=== PATIENT | female | born 1950 | race Caucasian/White ===

== ENCOUNTER → 2018-07-09 07:58 | Outpatient (REF) | payer OTHER, SELFPAY ==
[2018-07-09 13:19] LABS: ALT 23 U/L (12-78); AST 18 U/L (15-37); Albumin 3.6 g/dL (3.4-5.0); Alkaline Phosphatase 89 U/L (46-116); Anion Gap 2.8 mmol/L (3-11); BUN 12 mg/dL (7-18); Bilirubin, Total 0.6 mg/dL (0.2-1.0); CO2 32.2 mmol/L (21.0-32.0); CREATININE 0.97 mg/dL (0.55-1.02); Calcium 8.6 mg/dL (8.5-10.1); Chloride 108 mmol/L (98-107); Cholesterol 192 mg/dL (50-200); Estimated GFR 56.94 (mL/min/1.73m2); Glucose 107 mg/dL (70-100); HDL Cholesterol 46 mg/dL (40-60); LDL CHOLESTEROL 140 mg/dL (<100); Potassium 4.2 mmol/L (3.5-5.1); Sodium 143 mmol/L (136-145); Total Protein 6.1 g/dL (6.4-8.2); Triglyceride 56 mg/dL (30-150)
[2018-07-09 13:27] LABS: HCT 41.2 % (36.0-46.0); Mean Corp. HGB Concentration 31.6 g/dL (32.0-36.0); Mean Corpuscular Hemoglobin 31.3 pg (27.0-33.0); Mean Corpuscular Volume 99.3 fL (80-95); Mean Platelet Volume 10.4 fL (8.0-11.0); Platelet Count 241 x1000/uL (130-400); RBC 4.15 m/cumm (4.00-5.20); White Blood Cell Count 7.02 k/cumm (4.4-10.8)
[2018-07-09 13:49] LABS: Hemoglobin A1C 5.6 % (4.5-6.2)
== END ==
LOC: NCHCN 07:58
PROVIDERS: PCP Family Medicine; Visit Provider Family Medicine
DX: R73.03 Prediabetes (principal); I10 Essential (primary) hypertension; K21.9 Gastro-esophageal reflux disease without esophagitis; R60.0 Localized edema
CPT/HCPCS: 80053; 80061; 83721; 85027; 83036

== ENCOUNTER 2018-07-18 17:59 | Outpatient (CLI) | payer OTHER, SELFPAY ==
[2018-07-18 17:09] LABS: ALT 21 U/L (12-78); AST 17 U/L (15-37); Albumin 3.4 g/dL (3.4-5.0); Alkaline Phosphatase 91 U/L (46-116); BUN 11 mg/dL (7-18); Bilirubin, Total 0.7 mg/dL (0.2-1.0); CREATININE 0.86 mg/dL (0.55-1.02); Calcium 8.6 mg/dL (8.5-10.1); Chloride 106 mmol/L (98-107); Glucose 99 mg/dL (70-100); Potassium 4.5 mmol/L (3.5-5.1); Sodium 142 mmol/L (136-145); Total Protein 6.2 g/dL (6.4-8.2)
[2018-07-18 17:10] LABS: HCT 40.5 % (36.0-46.0); HGB 12.8 g/dL (12.0-15.5); Mean Corpuscular Volume 98.5 fL (80-95); RBC 4.11 m/cumm (4.00-5.20); White Blood Cell Count 6.41 k/cumm (4.4-10.8)
[2018-07-18 17:11] LABS: Abs Immature Grans 0.01 k/cumm (0.0-0.09); Absolute Basophil Count 0.04 k/cumm (0.0-0.2); Absolute Eosinophil Count 0.34 k/cumm (0.0-0.7); Absolute Lymphocyte Count 1.72 k/cumm (1.2-3.4); Basophils % 0.6; Eosinophils % 5.3; Immature Grans % 0.2; Lymphocytes % 26.8; Mean Corp. HGB Concentration 31.6 g/dL (32.0-36.0); Mean Corpuscular Hemoglobin 31.1 pg (27.0-33.0); Mean Platelet Volume 10.4 fL (8.0-11.0); Monocytes % 7.8; Neutrophils % 59.3; Platelet Count 268 x1000/uL (130-400); RBC Distribution Width 14.1 % (11.7-14.6)
== END 2018-07-18 18:00 ==
PROVIDERS: Internal Medicine; PCP Family Medicine; Visit Provider Internal Medicine
DX: R93.8 Abnormal findings on diagnostic imaging of other specified body structures (principal); M12.30 Palindromic rheumatism, unspecified site; Z79.899 Other long term (current) drug therapy
CPT/HCPCS: 80053; 82565; 85025

== ENCOUNTER 2018-09-02 17:08 | Outpatient (REF) | payer OTHER, SELFPAY ==
--- NOTE | 2018-09-02 13:30 | PAPFT_PTH ---
PATIENT: Ml Lam LOC: [facility] U#:[id number] AGE/SX: 67/F ROOM: RE09/02/[address]: Mounika Mccray : 1950 BED: DIS: 09/02/2018 SPEC #: [id number] RECD: 09/03/18 13:04 STATUS: MELLY REPhani #: [id number] DEUCE: 09/02/18 13:[address]: Mounika Mccray DEPT: [facility] Cytology RECD BY: Nichole Benavides Tissues: 1 - CX/ENDOCX FOR PAP SMEARS Procedures: PAP THIN PREP/UVM Screening HPV DNA PROBE Comments: [id number]
== END 2018-09-02 17:28 ==
LOC: NCHCN 17:08
PROVIDERS: PCP Family Medicine; Visit Provider Family Medicine
DX: Z00.00 Encounter for general adult medical examination without abnormal findings (principal); Z12.4 Encounter for screening for malignant neoplasm of cervix; Z11.51 Encounter for screening for human papillomavirus (HPV)
CPT/HCPCS: 88142; 87624

== ENCOUNTER 2018-09-08 00:48 | Outpatient (CLI) | payer OTHER, SELFPAY ==
--- NOTE | 2018-09-08 12:00 | DI.CTLCSR_ITS ---
SYMPTOMS/DIAGNOSIS: TOBACCO USE, QUIT, Z87.[address] FOR LUNG CANCER SCREENING: A low dose noncontrast exam was performed. Comparison is made with contrast enhanced chest CT dated March,. The previous exam was limited due to respiratory motion. There is an 8 mm in diameter nodule in the right upper lobe. There is a question of a left apical mass versus scarring measuring 9 mm in diameter. Emphysematous changes are noted near the lung apices. There are few small mediastinal lymph nodes, unchanged. There are left atrial and left ventricular enlargement and mild coronary artery and aortic calcifications. No bony lesions are appreciated. IMPRESSION: An 8 mm right upper lobe nodule. Question of a 9 mm left upper lobe nodule versus pleural scarring. PET/CT or biopsy could be considered for further evaluation. Lung-RAD Category: 4B- Suspicious Lung- RAD Management of Findings: Chest CT, PET/CT, and/or tissue sampling
== END 2018-09-08 01:08 ==
PROVIDERS: PCP Family Medicine; Visit Provider Family Medicine
DX: Z12.2 Encounter for screening for malignant neoplasm of respiratory organs (principal); Z87.891 Personal history of nicotine dependence; R91.1 Solitary pulmonary nodule; R91.8 Other nonspecific abnormal finding of lung field; R59.0 Localized enlarged lymph nodes
CPT/HCPCS: G0297

== ENCOUNTER 2018-09-21 00:42 | Outpatient (CLI) | payer OTHER, SELFPAY ==
--- NOTE | 2018-09-21 11:23 | DI.MAMMO_ITS ---
SYMPTOM/DIAGNOSIS: SCREENING, Z12.31 MAMMOGRAMS: Mammograms were interpreted according to the usual protocol including computer analysis with CAD system, tomosynthesis and C view imaging. Comparison with prior examinations. No masses or microcalcifications are seen. There is nothing to suggest malignancy. Breast density A. IMPRESSION: Category 1-A. Negative mammogram. Routine screening is recommended. SA ASSESSMENT OF FINDINGS: Negative. Category 1. Patient will receive a letter notifying them of these results. BI-RAD category A. The breasts are almost entirely fatty.
== END 2018-09-21 01:02 ==
PROVIDERS: PCP Family Medicine; Visit Provider Family Medicine
DX: Z12.31 Encounter for screening mammogram for malignant neoplasm of breast (principal)
CPT/HCPCS: 77063; 77067

== ENCOUNTER 2018-12-29 09:55 | Outpatient (CLI) | payer OTHER, SELFPAY ==
[2018-12-29 11:16] LABS: Abs Immature Grans 0.02 k/cumm (0.0-0.09); Absolute Basophil Count 0.05 k/cumm (0.0-0.2); Absolute Eosinophil Count 0.29 k/cumm (0.0-0.7); Absolute Lymphocyte Count 1.79 k/cumm (1.2-3.4); Absolute Monocyte Count 0.78 k/cumm (0.11-0.7); Absolute Neutrophil Count 4.63 k/cumm (1.2-6.7); Basophils % 0.7; Eosinophils % 3.8; HCT 40.6 % (36.0-46.0); HGB 13.1 g/dL (12.0-15.5); Immature Grans % 0.3; Lymphocytes % 23.7; Mean Corp. HGB Concentration 32.3 g/dL (32.0-36.0); Mean Corpuscular Hemoglobin 31.5 pg (27.0-33.0); Mean Corpuscular Volume 97.6 fL (80-95); Monocytes % 10.3; Neutrophils % 61.2; Platelet Count 243 x1000/uL (130-400); RBC 4.16 m/cumm (4.00-5.20); RBC Distribution Width 13.3 % (11.7-14.6); White Blood Cell Count 7.56 k/cumm (4.4-10.8)
[2018-12-29 11:56] LABS: ALT 20 U/L (12-78); AST 15 U/L (15-37); Albumin 3.4 g/dL (3.4-5.0); Alkaline Phosphatase 104 U/L (46-116); BUN 13 mg/dL (7-18); Bilirubin, Total 0.4 mg/dL (0.2-1.0); CREATININE 0.94 mg/dL (0.55-1.02); Calcium 8.8 mg/dL (8.5-10.1); Chloride 105 mmol/L (98-107); Estimated GFR 58.87 (mL/min/1.73m2); Glucose 117 mg/dL (70-100); Potassium 4.1 mmol/L (3.5-5.1); Sodium 144 mmol/L (136-145); Total Protein 6.4 g/dL (6.4-8.2)
== END 2018-12-29 10:15 ==
PROVIDERS: PCP Family Medicine; Visit Provider Internal Medicine
DX: M12.30 Palindromic rheumatism, unspecified site (principal); Z79.899 Other long term (current) drug therapy
CPT/HCPCS: 36415; 80053; 85025

== ENCOUNTER 2019-04-15 12:25 | Outpatient (CLI) | payer OTHER, SELFPAY ==
[2019-04-15 13:00] LABS: Abs Immature Grans 0.02 k/cumm (0.0-0.09); Absolute Basophil Count 0.04 k/cumm (0.0-0.2); Absolute Eosinophil Count 0.64 k/cumm (0.0-0.7); Absolute Monocyte Count 0.92 k/cumm (0.11-0.7); Absolute Neutrophil Count 5.07 k/cumm (1.2-6.7); Basophils % 0.5; Eosinophils % 7.5; HCT 40.2 % (36.0-46.0); HGB 12.9 g/dL (12.0-15.5); Immature Grans % 0.2; Lymphocytes % 22.1; Mean Corp. HGB Concentration 32.1 g/dL (32.0-36.0); Mean Corpuscular Hemoglobin 30.4 pg (27.0-33.0); Mean Corpuscular Volume 94.8 fL (80-95); Mean Platelet Volume 9.1 fL (8.0-11.0); Monocytes % 10.7; Platelet Count 336 x1000/uL (130-400); RBC 4.24 m/cumm (4.00-5.20); RBC Distribution Width 13.5 % (11.7-14.6); White Blood Cell Count 8.59 k/cumm (4.4-10.8)
[2019-04-15 13:57] LABS: ALT 18 U/L (12-78); AST 15 U/L (15-37); Albumin 3.2 g/dL (3.4-5.0); Alkaline Phosphatase 103 U/L (46-116); Anion Gap 8.2 mmol/L (3-11); BUN 12 mg/dL (7-18); Bilirubin, Total 0.5 mg/dL (0.2-1.0); CO2 27.8 mmol/L (21.0-32.0); Calcium 8.9 mg/dL (8.5-10.1); Chloride 105 mmol/L (98-107); Glucose 97 mg/dL (70-100); Potassium 4.2 mmol/L (3.5-5.1); Sodium 141 mmol/L (136-145); Total Protein 6.2 g/dL (6.4-8.2)
== END 2019-04-15 12:45 ==
PROVIDERS: PCP Family Medicine; Visit Provider Internal Medicine
DX: M12.30 Palindromic rheumatism, unspecified site (principal); Z79.899 Other long term (current) drug therapy
CPT/HCPCS: 36415; 80053; 85025

== ENCOUNTER 2019-05-17 10:06 | Emergency (ER) | payer OTHER, SELFPAY ==
[2019-05-17 10:19] VITALS: BP 200/68; PULSE 42; RESP 18; TEMP 36.6; O2SAT 95
--- NOTE | 2019-05-17 10:45 | DI.RAD_ITS ---
SYMPTOMS/DIAGNOSIS: LOW BACK PAIN, CONSTIPATION LUMBAR SPINE: There is a mild to moderate L 1 compression fracture of the anterosuperior endplate. The fracture appears new when compared with 2017 chest x-ray. There is no visible retropulsion. There are prominent facet degenerative changes at L 4 - 5 and L 5 - S 1. There is mild spondylolisthesis at L 4 - 5. There is severe narrowing of the L 5 - S 1 disc space. There is mild narrowing of the L 4 - 5 disc. IMPRESSION: Compression fracture of the superior endplate of L 1 which appears new when compared with 2017. Degenerative changes of the lower lumbar spine. ABDOMEN FLAT AND UPRIGHT: No free air is seen. There is a large quantity of stool seen in the ascending and transverse colon. The colon appears redundant. The descending colon and rectosigmoid appear free of stool. There is no small bowel dilatation. IMPRESSION: Large quantity of stool in the right side of the colon. PA CHEST: The heart size is normal. The lungs are clear. No infiltrate or effusion is seen. IMPRESSION: No acute abnormality.
--- NOTE | 2019-05-17 11:02 | ED.GENADUL_ITS ---
Discharge Plan Disposition Patient Disposition: HOME Condition: Stable Discharge Details Chief Complaint: Nk/Back Pain Clinical Impression: Compression fracture of L1 lumbar vertebra, Constipation Primary Care Provider: Mounika Mccray ED Provider: Manas Condon Home Meds and New Rx's Prescriptions: New acetaminophen 325 mg tablet 325 mg PO Q4H PRN PRN (Reason: pain) Qty: 30 RF: 0 oxycodone 5 mg tablet 2.5 mg PO Q6H PRN PRN (Reason: severe pain) Qty: 5 RF: 0 bisacodyl [Dulcolax (bisacodyl)] 5 mg tablet,delayed release (DR/EC) 5 mg PO DAILY PRN (Reason: constipation) Qty: 4 RF: 0 Continued bupropion HCl [Wellbutrin SR] 150 MG tablet extended release 12 hr 300 mg PO DAILY RF: 0 omeprazole 10 MG capsule,delayed release(DR/EC) 20 mg PO DAILY RF: 0 folic acid 1 MG tablet 1 mg PO DAILY RF: 0 albuterol sulfate [ProAir HFA] 8.5 GM HFA aerosol inhaler 1 - 2 puff Inhalation Q4H PRN RF: 0 Methotrexate (Anti-Rheumatic) 2.5 MG tablets,dose pack 2.5 mg PO . Q WEEK RF: 0 vitamin B12 1 tab DAILY RF: 0 fluticasone propion-salmeterol [Advair Diskus] 250-50 mcg/dose Blister With Device 1 inh Inhalation BID RF: 0 cetirizine 10 mg Tablet 10 mg PO DAILY RF: 0 aspirin [Aspir-81] 81 mg Tablet,Delayed Release (Dr/Ec) 81 mg PO DAILY RF: 0 furosemide 20 mg Tablet 20 mg PO DAILY RF: 0 oxybutynin chloride 5 mg Tablet 5 mg PO BID PRNRF: 0 Spiriva with HandiHaler 18 mcg Capsule, W/Inhalation Device 1 cap INHALATION DAILY RF: 0 cholecalciferol (vitamin D3) [Vitamin D3] 2,000 unit Capsule 2,000 unit PO DAILY RF: 0 Discharge Instructions Instructions: Constipation (ED), Vertebral Compression Fracture (ED) Additional Instructions: Continue to stay well-hydrated and you may slowly perform activities as tolerated but refrain from any further heavy lifting, significant bending or twisting type motions. Please take acetaminophen for pain control and use the narcotic pain medication as needed for severe pain or discomfort. Return imme diately to the emergency department for any weakness to the lower extremities, numbness or tingling to your legs, or further concerns. Otherwise follow-up with your primary care provider for reassessment. You may also take the prescribed laxative to assist with your constipation but for any severe abdominal pain, nausea vomiting you should also return for reassessment Referrals: Mounika Mccray MD [Primary Care Provider] - 1 week Discharge Data Discharge Date/Time-TO BE ENTERED AT DEPARTURE: 05/17/19 12:48 Medical Decision Making Patient presenting to the emergency department for chief complaint of back pain. Patient reports that 5 days ago she was attempting to lift a air conditioner and felt a pop in her back. Since then she has had back pain which seems to be worse with lying flat or in the mornings. She states when she gets up moving around pain is fairly minimal. She states that she has been taking aspirin as needed for discomfort. Patient does state that she has had some constipation for 5 days as well but does state history of constipation. Patient has diffuse lumbar tenderness without step-off deformity, fever chills, urinary complaints, or abdominal pain. Patient does have hypoactive bowel sounds otherwise soft nontender abdomen. Patient has no saddle anesthesia, no weakness to the lower extremities, normal gait. Plan to do radiological imaging of the lumbar spine along with the abdomen. Patient denies any need of pain medication at this time. Review of radiological imaging shows a mild compression fracture of L1 otherwise no other acute findings noted by radiologist interpretation. Patient reassessed and continues to remain stable. Patient consented to rectal exam which shows normal sphincter tone. Post residual void shows less than 20 mL's after patient states urinating twice in the ED without issue. I feel that this is appropriate and patient has no worrisome findings to suggest cauda equina while this is considered I do not feel that patient needs MRI imaging at this time. Patient was recommended to use acetaminophen, oxycodone, and ducolax. Patient was p laced upon referral to follow-up with primary care physician by the end of the week for any additional pain medication as needed or for reassessment HPI General Mode of arrival: ambulatory . Date/Time Provider Initiated Documentation: 05/17/19 10:23 . Limitations to Documentation: no limitations . Information obtained by: patient and RN notes reviewed . History of Present Illness 68 year old F presents to the emergency department with the chief complaint of back pain , described as mild, with intensity rated at 3. Quality is described as aching, and is localized to the back and buttocks (left). Patient started experiencing this day(s) (5) and it has been colicky. Movement worsens symptoms . Patient did receive the following treatments prior to arrival, NSAID Related Data Home Medications Medication Instructions Recorded Confirmed Methotrexate (Anti-Rheumatic) 2.5 mg PO . Q WEEK 09/20/13 05/17/19 albuterol sulfate [ProAir HFA] 1 - 2 puff INHALATION Q4H PRN 09/20/13 05/17/19 inhaler bupropion HCl [Wellbutrin SR] 300 mg PO DAILY 09/20/13 05/17/19 folic acid 1 mg PO DAILY tab-cap 09/20/13 05/17/19 omeprazole 20 mg PO DAILY tab-cap 09/20/13 05/17/19 Vitamin B12 1 tab DAILY 03/20/15 05/17/19 Spiriva with HandiHaler 1 cap INHALATION DAILY 05/17/19 05/17/19 acetaminophen 325 mg PO Q4H PRN PRN #30 tab 05/17/19 aspirin [Aspir-81] 81 mg PO DAILY 05/17/19 05/17/19 bisacodyl [Dulcolax (bisacodyl)] 5 mg PO DAILY PRN #4 tab 05/17/19 cetirizine 10 mg PO DAILY 05/17/19 05/17/19 cholecalciferol (vitamin D3) 2,000 unit PO DAILY 05/17/19 05/17/19 [Vitamin D3] fluticasone propion-salmeterol 1 inh INHALATION BID 05/17/19 05/17/19 [Advair Diskus] furosemide 20 mg PO DAILY 05/17/19 05/17/19 oxybutynin chloride 5 mg PO BID PRN 05/17/19 05/17/19 oxycodone 2.5 mg PO Q6H PRN PRN #5 tab 05/17/19 Previous Rx's Medication Instructions Recorded acetaminophen 325 mg PO Q4H PRN PRN #30 tab 05/17/19 bisacodyl [Dulcolax (bisacodyl)] 5 mg PO DAILY PRN #4 tab 05/17/19 oxycodone 2.5 mg PO Q6H PRN PRN #5 tab 05/17/19 Allergies Allergy/AdvReac Type Severity Reaction Status Date / Time No Known Allergies Allergy Unverified 04/28/15 08:43 General Stated Complaint: Orthopedic LAURA: 3 Review of Systems Constitutional Denies chills and Denies fever(s) Cardiovascular Denies chest pain Gastrointestinal Denies abdominal pain, Denies change in bowel habits, Reports constipation, Denies diarrhea, Denies nausea and Denies vomiting Genitourinary Denies urinary incontinence Musculoskeletal Reports as per HPI, Reports back pain, Denies numbness and Denies tingling Neurologic Denies numbness, Denies sensory deficit and Denies tingling PFSH Social History Smoking/Tobacco Use Status: Former Tobacco Use Alcohol Intake: former Drug use: Never Do you feel safe at home: Yes Do you feel safe in your relationship?: Yes Exam Const General: cooperative and no acute distress Orientation: alert, awake and oriented x3 Neck Neck: normal visual inspection, full ROM and no meningeal signs Resp Effort & Inspection: normal respiratory effort Auscultation: clear to auscultation bilaterally Cardio Rate: regular rate Rhythm: regular rhythm Heart Sounds: S1 normal and S2 normal GI Palpation: soft, no hepatosplenomegaly, no aortic enlargement, no masses, no pulsatile masses, not rigid and nontender Auscultation: hypoactive bowel sounds Rectal Exam - female: visual inspection normal, normal sphincter tone, No fecal impaction, No hemorrhoids and No tenderness Back/Spine/Pelvis Thoracic/Lumbar Spine: pain with thoraco-lumbar ROM, thoraco-lumbar ROM limited, No thoracic spinal tenderness, lumbar spinal tenderness (Diffuse nonfocal) and straight leg raise positive (left) Pelvis: no pain with anterior-posterior compression, no pain with lateral compression, buttock tenderness on the left and sciatic notch tenderness on the right Sacrum: no ecchymosis and no erythema Neuro General: alert, awake and oriented x3 DTR's: Rt Patellar: 2+, Lt Patellar: 2+, Rt Ankle: 2+ and Lt Ankle: 2+ Extrem Right lower extremity: hip/thigh Details: normal to inspection, knee Details: normal to inspection and lower leg Details: normal to inspection Course Vital Signs Temperature 36.6 C 05/17/19 10:19 Pulse 42 L 05/17/19 10:19 Respiratory Rate 18 05/17/19 10:19 Blood Pressure 200/68 H 05/17/19 10:19 Pulse Oximetry 95 05/17/19 10:19 Temperature 36.6 C 05/17/19 10:19 Temperature Source Tympanic 05/17/19 10:19 Pulse 42 L 05/17/19 10:19 Respiratory Rate 18 05/17/19 10:19 Respiratory Effort Non-Labored 05/17/19 10:22 Blood Pressure 200/68 H 05/17/19 10:19 Blood Pressure Position Sitting 05/17/19 10:19 Pulse Oximetry 95 05/17/19 10:19 Pain Level 5 05/17/19 10:33
--- NOTE | 2019-05-24 19:08 | NUR.NOTE ---
Nursing Note: Referral was faxed to PCP today for follow up. Rowena Cabrera.
== END 2019-05-17 12:48 | disposition home or self-care (01) ==
PROVIDERS: Emergency Provider Nurse Practitioner Family; PCP Family Medicine
DX: S32.010A Wedge compression fracture of first lumbar vertebra, initial encounter for closed fracture (principal); X50.0XXA Overexertion from strenuous movement or load, initial encounter; K59.00 Constipation, unspecified
CPT/HCPCS: 99283; 72110; 74022

== ENCOUNTER 2019-06-09 00:36 | Outpatient (CLI) | payer OTHER, SELFPAY ==
--- NOTE | 2019-06-09 13:31 | DI.CT_ITS ---
SYMPTOM/DIAGNOSIS: MULTIPLE PULMONARY NODULES R91.8 CT CHEST: Noncontrast CT scan of the chest was performed. Comparison examination is 09/08/18. The thoracic aorta is normal in caliber. Heart size is stable. No significant pericardial effusion is seen. Coronary artery calcifications are present. There are stable mildly enlarged lymph nodes in the mediastinum. The largest lymph node has a short axis diameter of 8 mm. No pleural effusion or pneumothorax is identified. Upper abdominal images show fatty atrophy of the pancreas and a left renal cyst. There does appear to be a small hiatal hernia. The 0.9 cm noncalcified nodule in the left lung apex is stable. There is a stable 0.3 cm pulmonary nodule in the right upper lobe. There is a stable 0.8 cm nodule in the right upper lobe posteriorly. No new pulmonary nodules are present. Central lobular and paraseptal emphysematous changes are seen in the lungs. The tracheobronchial tree is unremarkable. There is a compression fracture deformity of L-1 with retropulsion in to the central spinal canal. The spinal canal is narrowed down to 1.2 cm. There is loss of approximately 30% of the height of the vertebral body. This can be seen on the x-ray of the lumbar spine 05/17/19 Degenerative changes are seen in the spine. IMPRESSION: 1. Stable pulmonary nodules. No new pulmonary nodules. This remains a category 4-B, CT scan of the chest. 2. L-1 compression fracture deformity , stable since x-ray from 05/17/19 3. Retropulsion of the posterior vertebral body with resultant narrowing of the central spinal canal as noted. 4. Pulmonary emphysema.
== END 2019-06-09 00:56 ==
PROVIDERS: PCP Family Medicine; Visit Provider Family Medicine
DX: R91.8 Other nonspecific abnormal finding of lung field (principal); J43.9 Emphysema, unspecified; M48.56XD Collapsed vertebra, not elsewhere classified, lumbar region, subsequent encounter for fracture with routine healing; R59.0 Localized enlarged lymph nodes
CPT/HCPCS: 71250

== ENCOUNTER 2019-07-01 11:07 | Outpatient (CLI) | payer OTHER, SELFPAY ==
[2019-07-01 12:41] LABS: ALT 18 U/L (12-78); AST 15 U/L (15-37); Albumin 3.6 g/dL (3.4-5.0); Alkaline Phosphatase 111 U/L (46-116); Anion Gap 9.5 mmol/L (3-11); BUN 9 mg/dL (7-18); Bilirubin, Total 0.4 mg/dL (0.2-1.0); CO2 30.5 mmol/L (21.0-32.0); CREATININE 0.88 mg/dL (0.55-1.02); Calcium 8.8 mg/dL (8.5-10.1); Chloride 105 mmol/L (98-107); Glucose 113 mg/dL (70-100); Potassium 4.2 mmol/L (3.5-5.1); Sodium 145 mmol/L (136-145); Total Protein 6.7 g/dL (6.4-8.2)
[2019-07-01 14:51] LABS: Abs Immature Grans 0.01 k/cumm (0.0-0.09); Absolute Basophil Count 0.03 k/cumm (0.0-0.2); Absolute Monocyte Count 0.62 k/cumm (0.11-0.7); Absolute Neutrophil Count 5.03 k/cumm (1.2-6.7); Basophils % 0.4; Eosinophils % 5.1; HCT 41.2 % (36.0-46.0); HGB 12.9 g/dL (12.0-15.5); Immature Grans % 0.1; Lymphocytes % 22.8; Mean Corp. HGB Concentration 31.3 g/dL (32.0-36.0); Mean Corpuscular Hemoglobin 30.5 pg (27.0-33.0); Mean Corpuscular Volume 97.4 fL (80-95); Mean Platelet Volume 10.2 fL (8.0-11.0); Monocytes % 7.9; Neutrophils % 63.7; Platelet Count 369 x1000/uL (130-400); RBC 4.23 m/cumm (4.00-5.20); RBC Distribution Width 14.9 % (11.7-14.6); White Blood Cell Count 7.89 k/cumm (4.4-10.8)
== END 2019-07-01 11:27 ==
PROVIDERS: PCP Family Medicine; Visit Provider Internal Medicine
DX: M12.30 Palindromic rheumatism, unspecified site (principal); Z79.899 Other long term (current) drug therapy
CPT/HCPCS: 36415; 80053; 85025

== ENCOUNTER 2019-09-16 01:39 | Outpatient (CLI) | payer OTHER, SELFPAY ==
--- NOTE | 2019-09-16 10:30 | DI.DEXA_ITS ---
EXAM: XR DEXA BONE DENSITY W/WO HERMAN CLINICAL HISTORY: POSTMENOPAUSAL, Z78.0, OSTEOPENIA ON FOSAMAX [id number], M85.80 COMPARISON: DEXA BONE DENSITY WITH HERMAN from 03/07/2011 XR lumbar spine complete from 05/17/2019 DEXA BONE DENSITY WITH HERMAN from 03/07/2011 XR lumbar spine complete from 05/17/2019 DXA scans from 2005 and 2010. FINDINGS: The HERMAN image shows a compression fracture of L1 compared which appears unchanged when compared with plain films. No additional compression fractures are seen however the thoracic vertebral bodies ar e not well visualized. L1 was excluded from the spine density measurements due to the compression fr acture. The bone mineral density measurements of the lumbar spine correspond to a total T-score of - 1.7, in the osteopenic range. This represents a decrease of 9.5 percent compared with 2010 and a 4.8 percent increase when compared with 2005. The left hip bone mineral density measurements correspond to a total T-score of -1.9 and a femoral ne ck T-score of -2.1, in the osteopenic range. This represents a 10.1 percent decrease when compared w ith 2010 and no significant change from 2005. The left forearm bone mineral density measurements correspond to a T-score of the distal 3rd of -3.1, in the osteoporotic range. There has been a decrease of 11.9 percent when compared with 2010. The forearm was not analyzed in 2005. IMPRESSION: Osteoporosis of the left forearm, decreased when compared with 2010. Osteopenia of the left hip and lumbar spine, also with decreases when compared with 2010.
== END 2019-09-16 01:59 ==
PROVIDERS: PCP Family Medicine; Visit Provider Family Medicine
DX: M85.88 Other specified disorders of bone density and structure, other site (principal); M81.0 Age-related osteoporosis without current pathological fracture
CPT/HCPCS: 77080

== ENCOUNTER 2019-09-29 13:07 | Outpatient (CLI) | payer OTHER, SELFPAY | END 2019-09-29 13:27 | PROVIDERS: PCP Family Medicine; Visit Provider Family Medicine | DX: I49.9 Cardiac arrhythmia, unspecified (principal); I47.1 Supraventricular tachycardia; I49.1 Atrial premature depolarization | CPT/HCPCS: 93225 ==

== ENCOUNTER 2019-09-30 16:03 | Outpatient (CLI) | payer OTHER, SELFPAY ==
--- NOTE | 2019-10-01 08:34 | W.HOLTRPT ---
Date of service: 10/01/19 Time of Service: 08:34 Holter Monitor Report Holter Monitor Note: Monitor ordered for the indication of irregular heartbeat. ?The patient was in normal sinus rhythm for the majority of the recording time. While in normal sinus rhythm the average heart rate was 74 bpm with a minimum of 60 and a maximum of 102 bpm. ?The patient had 6 episodes of supraventricular tachycardia with the longest lasting 7 beats at a maximum rate of 155. ?The patient had rare (less than 1%) premature atrial contractions ?The patient had no episodes of ventricular tachycardia. The patient had frequent (8.7%) single ventricular ectopic beats. ?There were no episodes of atrial fibrillation, no pauses greater than 3 seconds and no high degree heart block.
== END 2019-09-30 16:23 ==
PROVIDERS: PCP Family Medicine; Visit Provider Family Medicine
DX: I49.9 Cardiac arrhythmia, unspecified (principal); I47.1 Supraventricular tachycardia; I49.1 Atrial premature depolarization
CPT/HCPCS: 93226

== ENCOUNTER 2019-10-01 08:34 | Outpatient (CLI) | payer OTHER, SELFPAY | END 2019-10-01 08:54 | PROVIDERS: PCP Family Medicine; Referring Provider Family Medicine; Visit Provider Internal Medicine Cardiovascular Disease | DX: I49.9 Cardiac arrhythmia, unspecified (principal); I47.1 Supraventricular tachycardia; I49.1 Atrial premature depolarization | CPT/HCPCS: 93227 ==

== ENCOUNTER 2019-10-26 01:52 | Outpatient (CLI) | payer OTHER, SELFPAY ==
[2019-10-26 13:07] LABS: Abs Immature Grans 0.01 k/cumm (0.0-0.09); Absolute Basophil Count 0.05 k/cumm (0.0-0.2); Absolute Eosinophil Count 0.35 k/cumm (0.0-0.7); Absolute Lymphocyte Count 2.12 k/cumm (1.2-3.4); Absolute Monocyte Count 0.65 k/cumm (0.11-0.7); Basophils % 0.7; Eosinophils % 4.6; HCT 42.3 % (36.0-46.0); HGB 13.6 g/dL (12.0-15.5); Immature Grans % 0.1; Lymphocytes % 27.6; Mean Corp. HGB Concentration 32.2 g/dL (32.0-36.0); Mean Corpuscular Hemoglobin 32.2 pg (27.0-33.0); Mean Corpuscular Volume 100.2 fL (80-95); Mean Platelet Volume 9.8 fL (8.0-11.0); Monocytes % 8.5; Neutrophils % 58.5; Platelet Count 315 x1000/uL (130-400); RBC 4.22 m/cumm (4.00-5.20); RBC Distribution Width 13.2 % (11.7-14.6); White Blood Cell Count 7.68 k/cumm (4.4-10.8)
== END 2019-10-26 02:12 ==
PROVIDERS: PCP Family Medicine; Visit Provider Internal Medicine
DX: M12.30 Palindromic rheumatism, unspecified site (principal); Z79.899 Other long term (current) drug therapy; R32 Unspecified urinary incontinence; I10 Essential (primary) hypertension; J44.9 Chronic obstructive pulmonary disease, unspecified; Z87.891 Personal history of nicotine dependence
CPT/HCPCS: 36415; 99204; 99215; 85025

== ENCOUNTER 2020-02-23 01:08 | Outpatient (CLI) | payer OTHER, SELFPAY ==
[2020-02-23 15:43] LABS: Abs Immature Grans 0.01 k/cumm (0.0-0.09); Absolute Basophil Count 0.06 k/cumm (0.0-0.2); Absolute Eosinophil Count 0.52 k/cumm (0.0-0.7); Absolute Lymphocyte Count 2.76 k/cumm (1.2-3.4); Absolute Monocyte Count 0.61 k/cumm (0.11-0.7); Absolute Neutrophil Count 5.27 k/cumm (1.2-6.7); Basophils % 0.7; Eosinophils % 5.6; HCT 41.3 % (36.0-46.0); HGB 13.5 g/dL (12.0-15.5); Immature Grans % 0.1 %; Lymphocytes % 29.9; Mean Corp. HGB Concentration 32.7 g/dL (32.0-36.0); Mean Corpuscular Hemoglobin 32.4 pg (27.0-33.0); Mean Platelet Volume 10.2 fL (8.0-11.0); Monocytes % 6.6; Neutrophils % 57.1; Platelet Count 272 x1000/uL (130-400); RBC 4.17 m/cumm (4.00-5.20); RBC Distribution Width 13.8 % (11.7-14.6); White Blood Cell Count 9.23 k/cumm (4.4-10.8)
[2020-02-23 17:05] LABS: ALT 25 U/L (14-59); AST 16 U/L (15-37); Albumin 3.9 g/dL (3.4-5.0); Alkaline Phosphatase 74 U/L (46-116); Anion Gap 6.3 mmol/L (3-11); BUN 11 mg/dL (7-18); Bilirubin, Total 0.6 mg/dL (0.2-1.0); CO2 32.7 mmol/L (21.0-32.0); Calcium 8.4 mg/dL (8.5-10.1); Chloride 106 mmol/L (98-107); Glucose 94 mg/dL (74-106); Potassium 3.7 mmol/L (3.5-5.1); Sodium 145 mmol/L (136-145); Total Protein 6.6 g/dL (6.4-8.2)
[2020-02-23 17:29] LABS: Hemoglobin A1C 5.5 % (3.8-5.6)
== END 2020-02-23 01:28 ==
PROVIDERS: PCP Family Medicine; Visit Provider Internal Medicine
DX: M12.30 Palindromic rheumatism, unspecified site (principal); Z79.899 Other long term (current) drug therapy; R73.03 Prediabetes
CPT/HCPCS: 36415; 80053; 83036; 85025

== ENCOUNTER 2020-08-10 04:40 | Outpatient (CLI) | payer OTHER, SELFPAY ==
[2020-08-10 10:33] LABS: Abs Immature Grans 0.03 10^3/uL (0.0-0.06); Absolute Basophil Count 0.04 10^3/uL (0.0-0.2); Absolute Eosinophil Count 0.49 10^3/uL (0.0-0.7); Absolute Lymphocyte Count 2.63 10^3/uL (1.2-3.4); Absolute Monocyte Count 0.75 10^3/uL (0.1-0.8); Absolute Neutrophil Count 4.52 10^3/uL (1.2-6.7); Basophils % 0.5; Eosinophils % 5.8; HCT 39.8 % (36.0-46.0); HGB 12.5 g/dL (11.2-15.7); Immature Grans % 0.4; Lymphocytes % 31.1; MCH 31.3 pg (27.0-33.0); MCHC 31.4 % (32.0-36.0); MCV 99.7 fL (80-95); MPV 9.5 fL (8.0-11.0); Monocytes % 8.9; Neutrophils % 53.3; Nucleated RBC 0 %; Platelet Count 241 10^3/uL (130-400); RBC 3.99 10^6/uL (3.93-5.22); RDW 13.2 % (11.7-14.6); RDW-SD 48.4 fL; WBC 8.46 10^3/uL (4.4-10.8)
== END 2020-08-10 05:00 ==
PROVIDERS: PCP Family Medicine; Visit Provider Internal Medicine
DX: M12.30 Palindromic rheumatism, unspecified site (principal); Z79.899 Other long term (current) drug therapy
CPT/HCPCS: 36415; 85025

== ENCOUNTER 2020-09-07 02:24 | Outpatient (CLI) | payer OTHER, SELFPAY ==
--- NOTE | 2020-09-07 15:16 | DI.MAMMO_ITS ---
EXAM: MAMMO SCREENING CLINICAL HISTORY: SCREENING,Z12.31 TECHNIQUE: Mammograms were interpreted according to the usual protocol including computer analysis w [employer] CAD system, tomosynthesis and C-view imaging. COMPARISON: 2010 through 2017 FINDINGS: The breasts are composed of mainly fatty density , Breast Density category A. No suspicious masses or suspicious microcalcifications are seen. No skin thickening or abnormal axillary lymph nodes are seen. There has been no significant change from prior exams. There is motion on the right MLO view. The pa tient should return for repeat right MLO view at no additional charge. IMPRESSION: BI-RADS Cat 0 - Assessment Incomplete: Need additional imaging evaluation Breast Density - Category A, fatty density. A negative radiographic report should not delay biopsy if a dominant or clinically suspicious mass is present. Up to ten percent of cancers are not identified on mammography. A negative report may reinforce clinical impression. Adenosis and dense breasts may obscure an underlying neoplasm. False positive reports average 6 to 10%. Patient will receive a letter notifying them of these results.
== END 2020-09-07 02:44 ==
PROVIDERS: PCP Family Medicine; Visit Provider Family Medicine
DX: Z12.31 Encounter for screening mammogram for malignant neoplasm of breast (principal)
CPT/HCPCS: 77063; 77067

== ENCOUNTER 2020-09-12 01:18 | Outpatient (CLI) | payer OTHER, SELFPAY ==
--- NOTE | 2020-09-12 14:48 | DI.MAMMO_ITS ---
EXAM: MG MAMMO SCREEN CALL BACK UNI CLINICAL HISTORY: F/U MAMMO, REPEAT VIEW FOR MOTION RT MLO, TECHNIQUE: Mammograms were interpreted according to the usual protocol including computer analysis w [facility] CAD system, tomosynthesis and C-view imaging. COMPARISON: FINDINGS: Repeat right MLO view was obtained due to motion artifact on the initial MLO view. Repeat MLO view i s of good technical quality. No mass or clumped microcalcification seen. Comparison with prior stud ies including September 2018 shows no gross interval change in appearance. IMPRESSION: No specific evidence of malignancy at this time. Routine screening examinations are suggested at yea rly intervals in this age group according to the ACS ACR guidelines. BI-RADS Category 1 - Negative Breast Density - Category B - Scattered areas of fibroglandular density
== END 2020-09-12 01:38 ==
PROVIDERS: PCP Family Medicine; Visit Provider Family Medicine
DX: R92.8 Other abnormal and inconclusive findings on diagnostic imaging of breast (principal)
CPT/HCPCS: 77063; 77067

== ENCOUNTER 2021-02-19 04:28 | Outpatient (CLI) | payer OTHER, SELFPAY ==
[2021-02-19 13:22] LABS: Abs Immature Grans 0.02 10^3/uL (0.0-0.06); Absolute Basophil Count 0.05 10^3/uL (0.0-0.2); Absolute Eosinophil Count 0.39 10^3/uL (0.0-0.7); Absolute Lymphocyte Count 2.52 10^3/uL (1.2-3.4); Absolute Monocyte Count 0.51 10^3/uL (0.1-0.8); Basophils % 0.7; Eosinophils % 5.2; HCT 39.2 % (36.0-46.0); HGB 12.4 g/dL (11.2-15.7); Immature Grans % 0.3; Lymphocytes % 33.6; MCH 31.6 pg (27.0-33.0); MCHC 31.6 % (32.0-36.0); MCV 99.7 fL (80-95); MPV 9.6 fL (8.0-11.0); Monocytes % 6.8; Neutrophils % 53.4; Nucleated RBC 0 %; Platelet Count 270 10^3/uL (130-400); RBC 3.93 10^6/uL (3.93-5.22); RDW-SD 47.8 fL; WBC 7.49 10^3/uL (4.4-10.8)
[2021-02-19 14:25] LABS: ALT 19 U/L (14-59); AST 13 U/L (15-37); Albumin 3.9 g/dL (3.4-5.0); Alkaline Phosphatase 84 U/L (46-116); Anion Gap 8.5 mmol/L (3-11); BUN 11 mg/dL (7-18); Bilirubin, Total 0.4 mg/dL (0.2-1.0); CO2 31.5 mmol/L (21.0-32.0); CREATININE 0.8 mg/dL (0.55-1.02); Calcium 8.8 mg/dL (8.5-10.1); Chloride 104 mmol/L (98-107); Glucose 104 mg/dL (74-106); Potassium 4.1 mmol/L (3.5-5.1); Sodium 144 mmol/L (136-145); Total Protein 6.6 g/dL (6.4-8.2)
== END 2021-02-19 04:29 | disposition home or self-care (01) ==
LOC: LBO 04:28
PROVIDERS: Internal Medicine Rheumatology; PCP Family Medicine; Visit Provider Family Medicine
DX: M05.79 Rheumatoid arthritis with rheumatoid factor of multiple sites without organ or systems involvement (principal); Z79.899 Other long term (current) drug therapy
CPT/HCPCS: 36415; 80053; 85025

== ENCOUNTER 2021-08-13 09:48 | Outpatient (CLI) | payer OTHER, SELFPAY ==
--- OUTSIDE RECORDS SUMMARY | 2021-08-13 09:51 | XMS_ITS ---
:1950 Author Care Team Providers Name Role Phone AYO GARCIA Primary Care Provider [phone] [facility] Primary Care Provider [phone] JOSE ABBASI ([facility]) Sox Analyst [phone] Allergies Code Code System Name Reaction Severity Status Onset NKDA ? Medications Name Status Start Date Stop Date ? ? Advair Diskus 500 mcg-50 mcg/dose Active ? Not available powder for inhalation amoxicillin 875 mg-potassium Completed ? 06/2018 clavulanate 125 mg tablet Arnuity Ellipta 200 mcg/actuation powder for inhalation Active ? Not available Inhale 1 puff every day by inhalation route. azithromycin 250 mg tablet Completed ? 09/24 bupropion HCl SR 150 mg tablet,12 hr Active ? Not available sustained-release cyanocobalamin (vitamin B-12) Active ? No t available fluticasone propionate 50 mcg/actuation nasal spray,suspension A ctive ? Not available INSTILL ONE SPRAY NASALLY TWO TIMES A DAY folic acid Active ? Not available furosemide 20 mg tablet Active ? Not avai lable methotrexate 2.5 mg tablet Active ? Not a vailable Take 4 tablets every week by oral route. omeprazole 20 mg capsule,delayed Active ? Not available release oxybutynin chloride 5 mg tablet Active ? Not available prednisone 20 mg tablet Completed ? 09/24/20 18 ProAir HFA 90 mcg/actuation aerosol inhaler Active ? Not available Inhale 2 puffs every 4 hours by inhalation route as needed. Spiriva with HandiHaler Active ? Not avai lable Vitamin D Active ? Not available Zyrtec 10 mg tablet Active ? Not availabl e Take 1 tablet every day by oral route. Problems Name Status Onset Date Source ? Obesity Active 09/24/2018 ? Depressive Disorder Active 09/24/2018 ? Hypertensive Disorder Active 09/24/2018 ? Chronic Obstructive Lung Disease Active 09/24/2018 ? Gastroesophageal Reflux Disease Active 09/24/2018 ? Colitis Active 09/24/2018 ? Rheumatoid Arthritis Active 09/24/2018 ? Osteopenia Active 09/24/2018 ? Edema of Lower Leg Active 09/24/2018 ? Chronic Cough Active 09/24/2018 ? Urinary Incontinence Active 09/24/2018 ? Prediabetes Active 09/24/2018 ? Tomography - Chest Abnormal Active 09/24/2018 ? History of Polyp of Colon Active 09/24/2018 ? History of Calculus of Kidney Active 09/24/2018 ? Procedures None recorded. Results Lab Results None recorded. Past Encounters None recorded. Social History Tobacco Smoking Status Former Smoker Notes: quit 05 06 Vaccine List Vaccine Type influenza, trivalent, adjuvanted 09/17/2018 Plan of Care Reminders Provider Appointments None ? ? recorded. Lab None ? ? recorded. Referral None ? ? recorded. Procedures None ? ? recorded. Surgeries None ? ? recorded. Imaging None ? ? recorded. Vitals Height Weight BMI Blood Pressure 154.94 cm 84.8 kg 35.3 kg/m2 140/80 mm[Hg]
[2021-08-13 14:08] LABS: Abs Immature Grans 0.02 10^3/uL (0.0-0.06); Absolute Basophil Count 0.05 10^3/uL (0.0-0.2); Absolute Eosinophil Count 0.43 10^3/uL (0.0-0.7); Absolute Lymphocyte Count 2.36 10^3/uL (1.2-3.4); Absolute Monocyte Count 0.63 10^3/uL (0.1-0.8); Absolute Neutrophil Count 4.55 10^3/uL (1.2-6.7); Basophils % 0.6; Eosinophils % 5.3; HCT 37.3 % (36.0-46.0); HGB 11.9 g/dL (11.2-15.7); Immature Grans % 0.2; Lymphocytes % 29.4; MCH 31.3 pg (27.0-33.0); MCHC 31.9 % (32.0-36.0); MCV 98.2 fL (80-95); MPV 9.5 fL (8.0-11.0); Monocytes % 7.8; Neutrophils % 56.7; Nucleated RBC 0 %; Platelet Count 260 10^3/uL (130-400); RDW 13.5 % (11.7-14.6); RDW-SD 48.4 fL; WBC 8.04 10^3/uL (4.4-10.8)
[2021-08-13 15:26] LABS: ALT 22 U/L (14-59); AST 15 U/L (15-37); Albumin 3.7 g/dL (3.4-5.0); Alkaline Phosphatase 82 U/L (46-116); Anion Gap 4.5 mmol/L (3-11); BUN 12 mg/dL (7-18); Bilirubin, Total 0.5 mg/dL (0.2-1.0); CO2 32.5 mmol/L (21.0-32.0); CREATININE 0.8 mg/dL (0.55-1.02); Calcium 8.7 mg/dL (8.5-10.1); Chloride 106 mmol/L (98-107); Glucose 94 mg/dL (74-106); Potassium 4.2 mmol/L (3.5-5.1); Sodium 143 mmol/L (136-145); Total Protein 6.5 g/dL (6.4-8.2)
== END 2021-08-13 09:49 | disposition home or self-care (01) ==
LOC: LBO 09:48
PROVIDERS: PCP Family Medicine; Visit Provider Internal Medicine Rheumatology
DX: M05.79 Rheumatoid arthritis with rheumatoid factor of multiple sites without organ or systems involvement (principal); Z79.899 Other long term (current) drug therapy
CPT/HCPCS: 36415; 80053; 85025

== ENCOUNTER 2021-12-03 01:04 | Outpatient (CLI) | payer MEDICARE, SELFPAY ==
[2021-12-03] MEDS: Albuterol HFA 18 GM 200 PUFF INH IH (11:56)
[2021-12-03] MEDS: Inhaler, Assist Device 1 EACH MC (11:56)
--- NOTE | 2021-12-03 13:28 | W.PFT ---
Date of service: 12/03/21 Time of Service: 12:56 Pulmonary Function Test Result Requesting Provider Duchene Indications: Cough Interpretation Spirometry: There is mild airflow limitation. There is no significant bronchodilator response. Lung Volumes: Lung volumes are normal. Diffusion Capacity: The diffusion is slightly reduced. Airway Pressure: Airways resistance is normal. Impression Mild airflow limitation with no significant bronchodilator response and a mildly reduced diffusion. Note: When compared to 11/28/17 the FEV1 and FVC have improved and there is no longer a bronchodilator response. The lung volumes have decreased, as has the diffusing capacity. Clinical Correlation therefore is recommended.
== END 2021-12-03 01:05 | disposition home or self-care (01) ==
LOC: RT 01:04
PROVIDERS: PCP Family Medicine; Visit Provider Student in an Organized Health Care Education/Training Program
DX: J44.9 Chronic obstructive pulmonary disease, unspecified (principal); R05.8 Other specified cough; R94.2 Abnormal results of pulmonary function studies; Z87.891 Personal history of nicotine dependence
CPT/HCPCS: 94060; 94726; 94729

== ENCOUNTER 2021-12-05 01:04 | Outpatient (CLI) | payer MEDICARE, SELFPAY ==
--- NOTE | 2021-12-05 08:50 | DI.MAMMO_ITS ---
Exam(s) MAMMO SCREENING EXAM: MAMMO SCREENING CLINICAL HISTORY: SCREENING, Z12.31 TECHNIQUE: Mammograms were interpreted according to the usual protocol including computer analysis w [employer] CAD system, tomosynthesis and C-view imaging. COMPARISON: FINDINGS: The breasts are of moderate density with fairly symmetrical distribution of fibroglandular tissue. N o dominant mass or clumped microcalcification is identified in either breast. The current examinatio n is compared with previous examinations including August 2020 and there has been no gross interval change in appearance in comparison with the prior studies. IMPRESSION: No specific evidence of malignancy at this time. Routine screening examinations are suggested at yea rly intervals in this age group according to the ACS ACR guidelines. BI-RADS Category 1 - Negative Breast Density - Category B - Scattered areas of fibroglandular density
== END 2021-12-05 01:24 ==
PROVIDERS: PCP Family Medicine; Visit Provider Family Medicine
DX: Z12.31 Encounter for screening mammogram for malignant neoplasm of breast (principal)
CPT/HCPCS: 77063; 77067

== ENCOUNTER 2021-12-10 01:36 | Outpatient (CLI) | payer MEDICARE, SELFPAY ==
--- NOTE | 2021-12-10 08:00 | DI.CTLCSR_ITS ---
Exam(s) CT CHEST LUNG CANCER SCREEN EXAM: CT CHEST LUNG CANCER SCREEN CLINICAL HISTORY: Screening for lung cancer.FORMER SMOKER, Z87.891. TECHNIQUE: Imaging Protocol: Low Dose Technique CONTRAST MATERIAL: None COMPARISON: CT CT CHEST WO from 06/09/2019 FINDINGS: CHEST: LUNGS: Emphysematous changes again noted. 7 x 6 millimeter nodule in the right upper lobe remains un changed. There is a sub apical nodule in the right upper lobe measuring 3 millimeters. Unchanged. No new right lung nodules nor pleural effusion. In the opposite-left lung sub apical spiculated nodule measuring 9 by 6 millimeters is unchanged. Th ere are no new additional left none findings. No pleural effusions. MEDIASTINUM: There is no obvious hilar nor mediastinal adenopathy. CARDIAC: Heart size is normal. There is no pericardial effusion.Caliber of the thoracic aorta is wit hin normal limits. OTHER: OSSEOUS: L1 compression fracture again noted. No new thoracic vertebral compression fractures. This finding has apparently been stable since 05/17/2019.. IMPRESSION: 1. Bilateral pulmonary nodules appears stable when compared to the prior study of 06/09/2019. No new nodules nor pleural effusions 2. No new intrathoracic adenopathy 3. Lung RADS Cat 4A - Suspicious: Findings for which additional diagnostic testing and/or tissue samp ling recommended Lung-RADS 1.0 CATEGORIES: Category 0 - Prior chest CT exam(s) being located for comparison. Category 1 - Annual screening in 12 months. No nodules or definitely benign nodules. Category 2 - Annual screening in 12 months. Benign appearance. Nodules with low likelihood of becomin g active cancer. Category 3 - 6-month follow-up. Probably benign. Short-term follow-up suggested. Nodules with low lik elihood of becoming active cancer. Category 4A - 3-month follow-up and CT/PET if >8 mm in size. Suspicious finding. Findings which requi re additional testing. Category 4B - Findings which require additional testing and tissue sampling. Category 4X - Category 3 or 4 nodules with additional features or imaging findings that increases the suspicion of malignancy. Modifier S- Potentially clinically significant findings (non lung cancer) RADIATION DOSE DELIVERED: 89.09mGy.cm Total DLP 1.84mGy CTDIvol DATA REPOSITORY: All CT scans at this facility are submitted to the National Radiology Data Registry (NRDR) Dose Index Registry (DIR) with the [employer] (ACR). RADIATION OPTIMIZATION: All CT scans at this facility use at least one of these dose optimization te chniques: automated exposure control; mA and/or kV adjustment per patient size (includes targeted exa ms where dose is matched to clinical indication); or iterative reconstruction.
== END 2021-12-10 01:56 ==
PROVIDERS: PCP Family Medicine; Visit Provider Student in an Organized Health Care Education/Training Program
DX: Z12.2 Encounter for screening for malignant neoplasm of respiratory organs (principal); Z87.891 Personal history of nicotine dependence; R91.8 Other nonspecific abnormal finding of lung field
CPT/HCPCS: 71271

== ENCOUNTER 2021-12-12 01:26 | Outpatient (CLI) | payer MEDICARE, SELFPAY ==
[2021-12-12 11:56] LABS: ALT 23 U/L (14-59); AST 14 U/L (15-37); Albumin 3.4 g/dL (3.4-5.0); Alkaline Phosphatase 87 U/L (46-116); Anion Gap 6.6 mmol/L (3-11); BUN 15 mg/dL (7-18); Bilirubin, Total 0.6 mg/dL (0.2-1.0); CO2 34.4 mmol/L (21.0-32.0); CREATININE 0.8 mg/dL (0.55-1.02); Calcium 8.6 mg/dL (8.5-10.1); Calculated LDL 152 mg/dL (<100); Chloride 101 mmol/L (98-107); Cholesterol 213 mg/dL (<200); Glucose 104 mg/dL (74-106); HDL Cholesterol 47 mg/dL (40-60); Potassium 3.4 mmol/L (3.5-5.1); Sodium 142 mmol/L (136-145); Total Protein 6.2 g/dL (6.4-8.2); Triglyceride 70 mg/dL (<150)
== END 2021-12-12 01:27 | disposition home or self-care (01) ==
LOC: LBO 01:26
PROVIDERS: PCP Family Medicine; Visit Provider Nurse Practitioner Family
DX: E78.5 Hyperlipidemia, unspecified (principal); I10 Essential (primary) hypertension; M05.79 Rheumatoid arthritis with rheumatoid factor of multiple sites without organ or systems involvement; Z79.899 Other long term (current) drug therapy
CPT/HCPCS: 36415; 80053; 80061

== ENCOUNTER 2022-02-11 03:45 | Outpatient (CLI) | payer MEDICARE, SELFPAY ==
[2022-02-11 11:42] LABS: Abs Immature Grans 0.02 10^3/uL (0.0-0.06); Absolute Basophil Count 0.06 10^3/uL (0.0-0.2); Absolute Lymphocyte Count 1.84 10^3/uL (1.2-3.4); Absolute Monocyte Count 0.61 10^3/uL (0.1-0.8); Absolute Neutrophil Count 6.58 10^3/uL (1.2-6.7); Basophils % 0.6; Eosinophils % 3.2; HCT 37.4 % (36.0-46.0); Immature Grans % 0.2; Lymphocytes % 19.6; MCH 31.1 pg (27.0-33.0); MCHC 32.1 % (32.0-36.0); MCV 96.9 fL (80-95); MPV 9.6 fL (8.0-11.0); Monocytes % 6.5; Neutrophils % 69.9; Nucleated RBC 0 %; Platelet Count 268 10^3/uL (130-400); RBC 3.86 10^6/uL (3.93-5.22); RDW 13.3 % (11.7-14.6); RDW-SD 47.3 fL; WBC 9.41 10^3/uL (4.4-10.8)
[2022-02-11 12:26] LABS: ALT 20 U/L (14-59); Calculated LDL 79 mg/dL (<100); Cholesterol 134 mg/dL (<200); HDL Cholesterol 44 mg/dL (40-60); Triglyceride 57 mg/dL (<150)
[2022-02-11 12:27] LABS: ALT 20 U/L (14-59); AST 15 U/L (15-37); Albumin 3.8 g/dL (3.4-5.0); Alkaline Phosphatase 83 U/L (46-116); Anion Gap 6.9 mmol/L (3-11); BUN 13 mg/dL (7-18); Bilirubin, Total 0.8 mg/dL (0.2-1.0); CO2 32.1 mmol/L (21.0-32.0); CREATININE 0.8 mg/dL (0.55-1.02); Calcium 8.8 mg/dL (8.5-10.1); Chloride 103 mmol/L (98-107); Glucose 105 mg/dL (74-106); Potassium 3.1 mmol/L (3.5-5.1); Sodium 142 mmol/L (136-145); Total Protein 6.4 g/dL (6.4-8.2)
[2022-02-12 10:05] LABS: Hepatitis C Ab w Rflx HCV PCR Negative (Negative)
== END 2022-02-11 03:46 | disposition home or self-care (01) ==
LOC: LBO 03:46
PROVIDERS: PCP Family Medicine; Visit Provider Nurse Practitioner Family
DX: I10 Essential (primary) hypertension (principal); E78.5 Hyperlipidemia, unspecified; Z11.59 Encounter for screening for other viral diseases; M05.79 Rheumatoid arthritis with rheumatoid factor of multiple sites without organ or systems involvement; Z79.899 Other long term (current) drug therapy
CPT/HCPCS: 36415; 80053; 80061; 86803; 84460; 85025

== ENCOUNTER 2022-02-27 08:54 | Outpatient (CLI) | payer MEDICARE, SELFPAY ==
--- NOTE | 2022-03-01 15:11 | W.PFT ---
Date of service: 02/28/22 Time of Service: 00:45 Pulmonary Function Test Result Requesting Provider Shanti Indications: COPD Impression Nocturnal Oximetry 172 minutes spent under 88%. Pattern of oxygen desaturation shows both sharp sudden decreases as well as more gradual declines, consistent with a picture of both pulmonary or cardiac disease and possible sleep apnea. Clinical Correlation therefore is recommended.
== END 2022-02-27 08:55 | disposition home or self-care (01) ==
LOC: RT 08:55
PROVIDERS: PCP Family Medicine; Visit Provider Student in an Organized Health Care Education/Training Program
DX: J44.9 Chronic obstructive pulmonary disease, unspecified (principal); R94.2 Abnormal results of pulmonary function studies
CPT/HCPCS: 94762

== ENCOUNTER 2022-03-06 03:36 | Outpatient (CLI) | payer MEDICARE, SELFPAY | END 2022-03-06 03:37 | disposition home or self-care (01) | PROVIDERS: PCP Family Medicine; Visit Provider Student in an Organized Health Care Education/Training Program ==

== ENCOUNTER 2022-03-27 01:37 | Outpatient (CLI) | payer MEDICARE, SELFPAY ==
[2022-03-27 10:46] LABS: Anion Gap 6.9 mmol/L (3-11); BUN 11 mg/dL (7-18); CO2 32.1 mmol/L (21.0-32.0); CREATININE 0.9 mg/dL (0.55-1.02); Calcium 8.6 mg/dL (8.5-10.1); Chloride 104 mmol/L (98-107); Glucose 109 mg/dL (74-106); Potassium 3.4 mmol/L (3.5-5.1); Sodium 143 mmol/L (136-145)
== END 2022-03-27 01:38 | disposition home or self-care (01) ==
LOC: LBO 01:37
PROVIDERS: PCP Family Medicine; Visit Provider Family Medicine
DX: E87.6 Hypokalemia (principal)
CPT/HCPCS: 36415; 80048; 80053; 85025

== ENCOUNTER 2022-04-29 17:24 | Outpatient (REF) | payer MEDICARE, SELFPAY ==
[2022-04-29 17:04] LABS: Anion Gap 9.2 mmol/L (3-11); BUN 11 mg/dL (7-18); CO2 28.8 mmol/L (21.0-32.0); CREATININE 0.9 mg/dL (0.55-1.02); Calcium 8.6 mg/dL (8.5-10.1); Chloride 103 mmol/L (98-107); Glucose 100 mg/dL (74-106); Potassium 3.9 mmol/L (3.5-5.1); Sodium 141 mmol/L (136-145)
== END 2022-04-29 17:25 | disposition home or self-care (01) ==
LOC: NCHCN 17:24
PROVIDERS: PCP Family Medicine; Visit Provider Family Medicine
DX: E87.6 Hypokalemia (principal)
CPT/HCPCS: 80048

== ENCOUNTER 2022-05-15 01:51 | Outpatient (CLI) | payer MEDICARE, SELFPAY ==
[2022-05-15 12:20] LABS: Abs Immature Grans 0.03 10^3/uL (0.0-0.06); Absolute Basophil Count 0.06 10^3/uL (0.0-0.2); Absolute Eosinophil Count 0.27 10^3/uL (0.0-0.7); Absolute Lymphocyte Count 1.64 10^3/uL (1.2-3.4); Absolute Monocyte Count 0.47 10^3/uL (0.1-0.8); Absolute Neutrophil Count 5.06 10^3/uL (1.2-6.7); Basophils % 0.8; Eosinophils % 3.6; HGB 11.6 g/dL (11.2-15.7); Immature Grans % 0.4; Lymphocytes % 21.8; MCH 32.2 pg (27.0-33.0); MCHC 33.1 % (32.0-36.0); MCV 97 fL (80-95); MPV 9.6 fL (8.0-11.0); Monocytes % 6.2; Neutrophils % 67.2; Platelet Count 248 10^3/uL (130-400); RDW 13.2 % (11.7-14.6); WBC 7.53 10^3/uL (4.4-10.8)
[2022-05-15 13:07] LABS: ALT 26 U/L (14-59); AST 23 U/L (15-37); Albumin 3.7 g/dL (3.4-5.0); Alkaline Phosphatase 85 U/L (46-116); BUN 13 mg/dL (7-18); Bilirubin, Total 0.7 mg/dL (0.2-1.0); CREATININE 0.8 mg/dL (0.55-1.02); Calcium 8.6 mg/dL (8.5-10.1); Chloride 103 mmol/L (98-107); Glucose 104 mg/dL (74-106); Potassium 3.7 mmol/L (3.5-5.1); Sodium 138 mmol/L (136-145); Total Protein 6.6 g/dL (6.4-8.2)
== END 2022-05-15 01:52 | disposition home or self-care (01) ==
LOC: LBO 01:51
PROVIDERS: PCP Family Medicine; Visit Provider Nurse Practitioner Family
DX: M05.79 Rheumatoid arthritis with rheumatoid factor of multiple sites without organ or systems involvement (principal); Z79.899 Other long term (current) drug therapy
CPT/HCPCS: 36415; 80053; 85025

== ENCOUNTER 2022-07-24 10:57 | Outpatient (REF) | payer MEDICARE, SELFPAY ==
[2022-07-24 16:48] LABS: Bilirubin Negative (Negative); Blood Trace-intact (Negative); Clarity Sl Cloudy (Clear); Glucose Negative (Negative); Ketones Negative (Negative); Leukocyte Esterase Small (Negative); Nitrite Negative (Negative); Specific Gravity 1.015 (1.005-1.025); Urobilinogen 0.2 EU/dL (Up TO 0.2); pH 7.5 (5-8)
[2022-07-24 17:16] LABS: Bacteria Many HPF (Negative); C & S Indicated? Yes; Casts Negative LPF (Negative); Crystals Many Amorphous HPF (Negative); Epithelial Cells Negative HPF (Negative); Mucus Negative (Negative); RBC Negative HPF (0-2)
== END 2022-07-24 10:58 | disposition home or self-care (01) ==
LOC: NCHCN 10:57
PROVIDERS: PCP Family Medicine; Visit Provider Family Medicine
DX: R82.90 Unspecified abnormal findings in urine (principal)
CPT/HCPCS: 87077; 81003; 81015; 87086

== ENCOUNTER → 2022-08-12 01:34 | Outpatient (CLI) | payer MEDICARE, SELFPAY ==
[2022-08-12] MEDS: Barium Sulfate 2% W/V-Creamy Vanilla Smoothie 450 ML BTL PO (09:20)
[2022-08-12 09:34] LABS: Estimated GFR 59.49 (mL/min/1.73m2)
--- NOTE | 2022-08-12 10:30 | DI.CT_ITS ---
Exam(s) CT ABDOMEN PELVIS W EXAM: CT ABDOMEN PELVIS W CLINICAL HISTORY: RECENT WEIGHT LOSS, R63.4, 17 POUNDS IN LAST YEAR; POOR APPETITE. TECHNIQUE: Imaging Protocol: Axial computed tomography images with coronal and sagittal reformatted images were created and reviewed CONTRAST MATERIAL: Intravenous: Omnipaque 350 Contrast volume:100 ml Oral: yes COMPARISON: CT RENAL COLIC WO CONTRAST from 11/17/[address] CHEST LUNG CANCER SCREEN from 12/10/2021 FINDINGS: ABDOMEN: Lung Bases: Normal where visualized. Liver: Normal density. No measurable mass. Gallbladder and biliary tract: No radiodense calculus or dilation. Pancreas: Atrophy and fatty infiltration. No abnormal calcifications or inflammatory process. Spleen: Normal. Kidneys: Normal size, contour and axis. No radiodense stones or obstructive uropathy. Simple left re nal cyst. No masses seen. Adrenal glands: No masses seen. Abdominal Aorta: Abdominal portion non-dilated. Moderate atherosclerotic changes. PELVIS: Bladder: No gross wall thickening. No calculi.No focal mass. Bowel: Moderate quantity of stool. No obstruction or bowel wall thickening. Appendix normal. Peritoneal cavity: No ascites, collection or mesenteric inflammatory response. Bones: Moderate L1 compression fracture, stable from prior chest CT. Degenerative disc changes great est at L5-S1. Facet degenerative changes.. Reproductive organs: Within normal limits. Lymph nodes: Unremarkable. Impression: No acute abnormality. RADIATION DOSE DELIVERED: 830.32mGy.cm Total DLP DATA REPOSITORY: All CT scans at this facility are submitted to the National Radiology Data Registry (NRDR) Dose Index Registry (DIR) with the [employer] (ACR). RADIATION OPTIMIZATION: All CT scans at this facility use at least one of these dose optimization te chniques: automated exposure control; mA and/or kV adjustment per patient size (includes targeted exa ms where dose is matched to clinical indication); or iterative reconstruction.
[2022-08-12] MEDS: Omnipaque 350 MG/ML 500 ML BTL-Imaging package IJ (11:21)
[2022-08-12] MEDS: Normal Saline Flush 10 ML SYR IVP (11:22)
== END ==
PROVIDERS: PCP Family Medicine; Visit Provider Family Medicine
DX: R63.4 Abnormal weight loss (principal)
CPT/HCPCS: 74177; 82565

== ENCOUNTER 2022-08-21 11:44 | Outpatient (REF) | payer MEDICARE, SELFPAY ==
[2022-08-21 14:59] LABS: HCT 35.4 % (36.0-46.0); HGB 11.6 g/dL (11.2-15.7); MCH 32.3 pg (27.0-33.0); MCHC 32.8 % (32.0-36.0); MCV 99 fL (80-95); MPV 10.2 fL (8.0-11.0); Platelet Count 282 10^3/uL (130-400); RBC 3.59 10^6/uL (3.93-5.22); RDW 12.8 % (11.7-14.6); RDW-SD 45.4 fL; WBC 7.33 10^3/uL (4.4-10.8)
[2022-08-21 15:50] LABS: ALT 24 U/L (14-59); AST 19 U/L (15-37); Albumin 3.8 g/dL (3.4-5.0); Alkaline Phosphatase 95 U/L (46-116); Anion Gap 9.2 mmol/L (3-11); BUN 14 mg/dL (7-18); Bilirubin, Total 0.4 mg/dL (0.2-1.0); CO2 30.8 mmol/L (21.0-32.0); CREATININE 0.8 mg/dL (0.55-1.02); Chloride 102 mmol/L (98-107); Estimated GFR 77.75 (mL/min/1.73m2); Glucose 100 mg/dL (74-106); Potassium 3.7 mmol/L (3.5-5.1); Sodium 142 mmol/L (136-145); Total Protein 6.4 g/dL (6.4-8.2)
[2022-08-22 06:09] LABS: Vitamin D 25 Total 54.7 ng/mL (30-100)
[2022-08-22 09:35] LABS: Parathyroid Hormone,Intact 56 pg/mL (19-88)
[2022-08-26 13:03] LABS: IgA 130 mg/dL (85-499); Interpretation (See Note); Tissue Transglutaminase IgA <1.2 U/mL (<4.0)
== END 2022-08-21 11:45 | disposition home or self-care (01) ==
LOC: NCHCN 11:44
PROVIDERS: PCP Family Medicine; Visit Provider Family Medicine
DX: R63.4 Abnormal weight loss (principal); M81.0 Age-related osteoporosis without current pathological fracture; R60.0 Localized edema; Z87.310 Personal history of (healed) osteoporosis fracture
CPT/HCPCS: 80053; 82306; 82784; 83516; 85027; 83970; 84100; 84443

== ENCOUNTER 2022-08-30 02:15 | Outpatient (CLI) | payer MEDICARE, SELFPAY ==
[2022-08-30 12:50] LABS: Abs Immature Grans 0.02 10^3/uL (0.0-0.06); Absolute Basophil Count 0.03 10^3/uL (0.0-0.2); Absolute Eosinophil Count 0.31 10^3/uL (0.0-0.7); Absolute Lymphocyte Count 1.44 10^3/uL (1.2-3.4); Absolute Monocyte Count 0.68 10^3/uL (0.1-0.8); Absolute Neutrophil Count 5.59 10^3/uL (1.2-6.7); Basophils % 0.4; Eosinophils % 3.8; HCT 34.7 % (36.0-46.0); HGB 11.5 g/dL (11.2-15.7); Immature Grans % 0.2; Lymphocytes % 17.8; MCH 32.2 pg (27.0-33.0); MCHC 33.1 % (32.0-36.0); MCV 97 fL (80-95); MPV 9.6 fL (8.0-11.0); Monocytes % 8.4; Neutrophils % 69.4; Platelet Count 209 10^3/uL (130-400); RBC 3.57 10^6/uL (3.93-5.22); RDW 13.2 % (11.7-14.6); RDW-SD 46.6 fL; WBC 8.07 10^3/uL (4.4-10.8)
[2022-08-30 13:47] LABS: ALT 20 U/L (14-59); AST 18 U/L (15-37); Albumin 3.5 g/dL (3.4-5.0); Alkaline Phosphatase 84 U/L (46-116); Anion Gap 3.6 mmol/L (3-11); BUN 14 mg/dL (7-18); Bilirubin, Total 0.8 mg/dL (0.2-1.0); CO2 34.4 mmol/L (21.0-32.0); CREATININE 0.9 mg/dL (0.55-1.02); Calcium 8.7 mg/dL (8.5-10.1); Chloride 104 mmol/L (98-107); Glucose 87 mg/dL (74-106); Potassium 3.3 mmol/L (3.5-5.1); Sodium 142 mmol/L (136-145); Total Protein 6.5 g/dL (6.4-8.2)
== END 2022-08-30 02:16 | disposition home or self-care (01) ==
LOC: LBO 02:15
PROVIDERS: PCP Family Medicine; Visit Provider Nurse Practitioner Family
DX: Z79.899 Other long term (current) drug therapy (principal); M05.79 Rheumatoid arthritis with rheumatoid factor of multiple sites without organ or systems involvement
CPT/HCPCS: 36415; 80053; 85025

== ENCOUNTER 2022-10-15 15:40 | Outpatient (REF) | payer MEDICARE, SELFPAY ==
[2022-10-15 16:44] LABS: Anion Gap 1.6 mmol/L (3-11); BUN 14 mg/dL (7-18); CO2 32.4 mmol/L (21.0-32.0); CREATININE 0.8 mg/dL (0.55-1.02); Chloride 106 mmol/L (98-107); Estimated GFR 77.75 (mL/min/1.73m2); Glucose 87 mg/dL (74-106); Potassium 4.9 mmol/L (3.5-5.1); Sodium 140 mmol/L (136-145)
[2022-10-15 16:49] LABS: Folate > 20.0 ng/mL (8.6-20.0)
[2022-10-16 23:22] LABS: Vitamin B12 544 pg/mL (193-986)
== END 2022-10-15 15:41 | disposition home or self-care (01) ==
LOC: NCHCN 15:40
PROVIDERS: PCP Family Medicine; Visit Provider Family Medicine
DX: D53.9 Nutritional anemia, unspecified (principal); E87.6 Hypokalemia
CPT/HCPCS: 80048; 82607; 82746

== ENCOUNTER 2023-02-05 03:25 | Outpatient (CLI) | payer MEDICARE, SELFPAY ==
[2023-02-05 14:50] LABS: HCT 38.2 % (36.0-46.0); HGB 12.4 g/dL (11.2-15.7); MCH 31.7 pg (27.0-33.0); MCHC 32.5 % (32.0-36.0); MCV 98 fL (80-95); Platelet Count 267 10^3/uL (130-400); RBC 3.91 10^6/uL (3.93-5.22); RDW 13.7 % (11.7-14.6); RDW-SD 48.5 fL; WBC 8.21 10^3/uL (4.4-10.8)
[2023-02-05 14:51] LABS: Absolute Basophil Count 0.06 10^3/uL (0.0-0.2); Absolute Eosinophil Count 0.34 10^3/uL (0.0-0.7); Absolute Lymphocyte Count 1.85 10^3/uL (1.2-3.4); Absolute Monocyte Count 0.58 10^3/uL (0.1-0.8); Absolute Neutrophil Count 5.38 10^3/uL (1.2-6.7); Basophils % 0.7; Diff Comment AUTO DIFF; Eosinophils % 4.1; Immature Grans % 0.1; Lymphocytes % 22.5; MPV 9.5 fL (8.0-11.0); Monocytes % 7.1; Neutrophils % 65.5
[2023-02-06 10:04] LABS: ALT 28 U/L (14-59); AST 18 U/L (15-37); Albumin 3.7 g/dL (3.4-5.0); Alkaline Phosphatase 93 U/L (46-116); Anion Gap 5.7 mmol/L (3-11); BUN 14 mg/dL (7-18); Bilirubin, Total 0.6 mg/dL (0.2-1.0); CO2 29.3 mmol/L (21.0-32.0); CREATININE 0.9 mg/dL (0.55-1.02); Calcium 9.3 mg/dL (8.5-10.1); Chloride 107 mmol/L (98-107); Estimated GFR 67.08 (mL/min/1.73m2); Glucose 100 mg/dL (74-106); Potassium 4.9 mmol/L (3.5-5.1); Sodium 142 mmol/L (136-145); Total Protein 6.6 g/dL (6.4-8.2)
== END 2023-02-05 03:26 | disposition home or self-care (01) ==
LOC: LBO 03:25
PROVIDERS: PCP Family Medicine; Visit Provider Nurse Practitioner Family
DX: M05.79 Rheumatoid arthritis with rheumatoid factor of multiple sites without organ or systems involvement (principal); Z79.899 Other long term (current) drug therapy
CPT/HCPCS: 36415; 80053; 85025

== ENCOUNTER 2023-07-02 03:01 | Outpatient (CLI) | payer MEDICARE, SELFPAY ==
[2023-07-02 09:46] LABS: Abs Immature Grans 0.03 10^3/uL (0.0-0.06); Absolute Basophil Count 0.06 10^3/uL (0.0-0.2); Absolute Eosinophil Count 0.46 10^3/uL (0.0-0.7); Absolute Lymphocyte Count 1.63 10^3/uL (1.2-3.4); Absolute Monocyte Count 0.69 10^3/uL (0.1-0.8); Absolute Neutrophil Count 5.03 10^3/uL (1.2-6.7); Basophils % 0.8; Eosinophils % 5.8; HCT 35.4 % (36.0-46.0); HGB 11.5 g/dL (11.2-15.7); Immature Grans % 0.4; Lymphocytes % 20.6; MCH 31.9 pg (27.0-33.0); MCHC 32.5 % (32.0-36.0); MCV 98 fL (80-95); MPV 9.6 fL (8.0-11.0); Monocytes % 8.7; Neutrophils % 63.7; Platelet Count 293 10^3/uL (130-400); RDW 13.3 % (11.7-14.6); RDW-SD 46.9 fL
[2023-07-02 10:20] LABS: ALT 23 U/L (14-59); AST 17 U/L (15-37); Albumin 3.5 g/dL (3.4-5.0); Alkaline Phosphatase 93 U/L (46-116); Anion Gap 8.3 mmol/L (3-11); BUN 18 mg/dL (7-18); Bilirubin, Total 0.6 mg/dL (0.2-1.0); CO2 28.7 mmol/L (21.0-32.0); CREATININE 1.1 mg/dL (0.55-1.02); Calcium 9.1 mg/dL (8.5-10.1); Chloride 107 mmol/L (98-107); Estimated GFR 52.73 (mL/min/1.73m2); Glucose 105 mg/dL (74-106); Potassium 4.6 mmol/L (3.5-5.1); Sodium 144 mmol/L (136-145); Total Protein 6.5 g/dL (6.4-8.2)
== END 2023-07-02 03:02 | disposition home or self-care (01) ==
LOC: LBO 03:01
PROVIDERS: PCP Family Medicine; Visit Provider Nurse Practitioner Family
DX: M05.79 Rheumatoid arthritis with rheumatoid factor of multiple sites without organ or systems involvement (principal); Z79.899 Other long term (current) drug therapy
CPT/HCPCS: 36415; 80053; 85025

== ENCOUNTER → 2023-09-30 15:09 | Outpatient (BNVA) | payer MEDICARE, SELFPAY | PROVIDERS: PCP Family Medicine; Referring Provider Family Medicine; Visit Provider Student in an Organized Health Care Education/Training Program | DX: J44.9 Chronic obstructive pulmonary disease, unspecified (principal); Z79.899 Other long term (current) drug therapy; M06.9 Rheumatoid arthritis, unspecified; Z23 Encounter for immunization; R91.8 Other nonspecific abnormal finding of lung field; Z87.891 Personal history of nicotine dependence; J96.91 Respiratory failure, unspecified with hypoxia | CPT/HCPCS: 90686; 94640; 99214; G0008; J7620 ==

== ENCOUNTER 2023-11-26 16:18 | Outpatient (REF) | payer MEDICARE, SELFPAY ==
[2023-11-26 16:12] LABS: Bilirubin Negative (Negative); Blood Trace-intact (Negative); Clarity Cloudy (Clear); Glucose Negative (Negative); Ketones Negative (Negative); Leukocyte Esterase Large (Negative); Nitrite Negative (Negative); Urobilinogen 0.2 mg/dL (Up to 0.2)
[2023-11-26 16:23] LABS: Bacteria Many HPF (Negative); C & S Indicated? Yes; WBC >50 HPF (0-5)
== END 2023-11-26 16:19 | disposition home or self-care (01) ==
LOC: LBN 16:18
PROVIDERS: PCP Family Medicine; Visit Provider Family Medicine
DX: R39.9 Unspecified symptoms and signs involving the genitourinary system (principal)
CPT/HCPCS: 87077; 81003; 81015; 87086; 87186

== ENCOUNTER → 2023-12-30 12:36 | Outpatient (BNVA) | payer MEDICARE, SELFPAY | PROVIDERS: PCP Family Medicine; Referring Provider Family Medicine; Visit Provider Physician Assistant Surgical | DX: J44.9 Chronic obstructive pulmonary disease, unspecified (principal); J96.91 Respiratory failure, unspecified with hypoxia; R91.8 Other nonspecific abnormal finding of lung field; M06.9 Rheumatoid arthritis, unspecified; Z87.891 Personal history of nicotine dependence | CPT/HCPCS: 99214 ==

== ENCOUNTER → 2024-01-08 00:21 | Outpatient (CLI) | payer MEDICARE, SELFPAY ==
--- NOTE | 2024-01-08 | DI.DEXA_ITS ---
Exam(s) XR DEXA BONE DENSITY W/WO HERMAN EXAM: XR DEXA BONE DENSITY W/WO HERMAN CLINICAL HISTORY: Asymptomatic menopausal state, Z78.0; screening for osteoporosis TECHNIQUE: COMPARISON: CR XR DEXA BONE DENSITY W/WO HERMAN from 09/16/2019 FINDINGS: Lateral Spine Image: There is an old L1 compression fracture deformity. Left hip: Total T-Score: -1.4. This compares to -1.9 on the prior examination. Total Z-Score: 0.4 T- and Z-scores: Findings are consistent with osteopenia. Lumbar Spine: Total T-Score: 0.0. This compares to -0.7 on the prior examination. Total Z-Score: 2.4 T- and Z-scores: Within normal limits. There is osteoporosis seen in the left forearm with a total T-score of -2.7 and Z-score of -0.2. Thi s compares with a total T-score of -3.1 on the prior examination. IMPRESSION: Osteoporosis in the left forearm.
--- NOTE | 2024-01-08 | DI.MAMMO_ITS ---
Exam(s) MAMMO SCREENING EXAM: MAMMO SCREENING CLINICAL HISTORY: Screening, Z12.31 TECHNIQUE: Bilateral full field digital CC and MLO mammographic images were obtained with 3D tomosyn thesis and utilizing computer aided detection (CAD). COMPARISON: Available for comparison. FINDINGS: Masses/Architectural Distortion: None seen. Microcalcifications: No suspicious pleomorphic-type are seen. Skin Thickening/Nipple Retraction: None. IMPRESSION: 1. No significant interval change with no specific features of malignancy noted. 2. Unless there is more urgent need, screening mammography is recommended, as per [employer] guidelines. BI-RADS Category 1 - Negative Breast Density - Category B - Scattered areas of fibroglandular density Breast density category C or D implies that the patient has dense breast tissue. Dense breast tissue is very common and is not abnormal but dense breast tissue can make it harder to find cancer on a ma mmogram. Also, dense breast tissue may increase their breast cancer risk. This information about the result of the mammogram report was provided to the patient to raise their awareness. Use this report when you speak with the patient about their risks for breast cancer, which includes their family hist ory. At that time, you may recommend for more screening tests (Ultrasound or MRI) as they might be us eful based on their risk. A negative radiographic report should not delay biopsy if a dominant or clinically suspicious mass is present. Up to ten percent of cancers are not identified on mammography. A negative report may reinforce clinical impression. Adenosis and dense breasts may obscure an underlying neoplasm. False positive reports average 6 to 10%. Patient will receive a letter notifying them of these results.
== END ==
PROVIDERS: PCP Family Medicine; Visit Provider Family Medicine
DX: Z78.0 Asymptomatic menopausal state (principal); Z12.31 Encounter for screening mammogram for malignant neoplasm of breast; Z13.820 Encounter for screening for osteoporosis; M81.0 Age-related osteoporosis without current pathological fracture
CPT/HCPCS: 77063; 77067; 77080

== ENCOUNTER 2024-01-08 01:46 | Outpatient (CLI) | payer MEDICARE, SELFPAY ==
[2024-01-08 15:27] LABS: Abs Immature Grans 0.02 10^3/uL (0.0-0.06); Absolute Basophil Count 0.07 10^3/uL (0.0-0.2); Absolute Eosinophil Count 0.51 10^3/uL (0.0-0.7); Absolute Lymphocyte Count 1.97 10^3/uL (1.2-3.4); Absolute Monocyte Count 0.71 10^3/uL (0.1-0.8); Absolute Neutrophil Count 4.33 10^3/uL (1.2-6.7); Basophils % 0.9; Eosinophils % 6.7; HCT 38.2 % (36.0-46.0); HGB 12.5 g/dL (11.2-15.7); Immature Grans % 0.3; Lymphocytes % 25.9; MCH 31.4 pg (27.0-33.0); MCHC 32.7 % (32.0-36.0); MCV 96 fL (80-95); MPV 10.1 fL (8.0-11.0); Monocytes % 9.3; Neutrophils % 56.9; Platelet Count 278 10^3/uL (130-400); RBC 3.98 10^6/uL (3.93-5.22); RDW 14.4 % (11.7-14.6); RDW-SD 49.6 fL; WBC 7.61 10^3/uL (4.4-10.8)
[2024-01-08 16:06] LABS: ALT 20 U/L (14-59); AST 18 U/L (15-37); Albumin 3.5 g/dL (3.4-5.0); Alkaline Phosphatase 101 U/L (46-116); Anion Gap 8.8 mmol/L (3-11); BUN 13 mg/dL (7-18); Bilirubin, Total 0.5 mg/dL (0.2-1.0); CO2 28.2 mmol/L (21.0-32.0); CREATININE 1.1 mg/dL (0.55-1.02); Calcium 8.9 mg/dL (8.5-10.1); Chloride 104 mmol/L (98-107); Glucose 97 mg/dL (74-106); Potassium 4.8 mmol/L (3.5-5.1); Sodium 141 mmol/L (136-145)
== END 2024-01-08 01:47 | disposition home or self-care (01) ==
LOC: LBO 01:46
PROVIDERS: PCP Family Medicine; Visit Provider Student in an Organized Health Care Education/Training Program
DX: Z79.899 Other long term (current) drug therapy (principal); M05.79 Rheumatoid arthritis with rheumatoid factor of multiple sites without organ or systems involvement
CPT/HCPCS: 36415; 80053; 85025

== ENCOUNTER 2024-05-10 11:22 | Emergency (ER) | payer MEDICARE, SELFPAY ==
[2024-05-10 11:28] VITALS: BP 86/27; PULSE 69; RESP 20; TEMP 36.4; O2SAT 92
--- NOTE | 2024-05-10 11:30 | DI.RAD_ITS ---
Exam(s) XR CHEST 2V PA LATERAL EXAM: XR CHEST 2V PA LATERAL CLINICAL HISTORY: shortness of breath TECHNIQUE: 2D digital imaging was performed of the chest. Two images were obtained. PA and lateral views were obtained. COMPARISON: CR LEFT RIBS TO INCLUDE CXR from 06/03/2014 CR CHEST 2 VIEWS PA,LAT from 03/12/2017 CR XR DEXA BONE DENSITY W/WO HERMAN from 09/16/[address] CHEST LUNG CANCER SCREEN from 12/10/[address] ABDOMEN PELVIS W from 08/12/2022 CR XR DEXA BONE DENSITY W/WO HERMAN from 01/08/2024 FINDINGS: MEDIASTINUM: Normal. HEART: Normal. PULMONARY VASCULATURE: Normal. LUNGS: There are bilateral lower lobe infiltrates, left greater than right. There is an underlying p rominent interstitial process in the lungs bilaterally which appears chronic. PLEURAL SPACE: No pleural effusion or pneumothorax. BONE:Within normal limits for the patient's age. There is an old L1 compression fracture deformity. OTHER FINDINGS:Normal. IMPRESSION: New bilateral basilar infiltrates, left greater than right suspicious for pneumonia. DATA REPOSITORY: RADIATION DOSE DELIVERED:
[2024-05-10 12:00] VITALS: O2SAT 90
--- NOTE | 2024-05-10 12:32 | ED.GENADUL_ITS ---
Discharge Plan Disposition Patient Disposition: Home Condition: Stable Discharge Details Clinical Impression: COVID, Pneumonia Primary Care Provider: Mounika Mccray ED Provider: Pasquale Stout Home Meds and New Rx's Prescriptions: New levofloxacin 750 mg tablet 750 mg PO DAILY 5 Days Qty: 5 0RF methylprednisolone [Medrol (Eyad)] 4 mg tablets,dose pack See Rx Instructions .ROUTE .COMPLEX Qty: 21 0RF Rx Instructions: orally per package directions No Action chlorthalidone 25 mg tablet 25 mg PO DAILY fluoxetine 40 mg capsule 40 mg PO DAILY omeprazole 40 mg capsule,delayed release(DR/EC) 40 mg PO DAILY Rx Instructions: May take a second if needed fluticasone propion-salmeterol [Advair HFA] 230-21 mcg/actuation HFA aerosol inhaler 2 puff inhalation BID Qty: 12 8RF spironolactone 25 mg tablet 25 mg PO DAILY albuterol sulfate [ProAir HFA] 8.5 GM HFA aerosol inhaler 1 - 2 puff Inhalation Q4H PRN losartan 50 mg tablet 50 mg PO DAILY Methotrexate (Anti-Rheumatic) 2.5 mg tablets,dose pack 2.5 mg PO . Q WEEK Patient Comments: 4 tabs every week, per PCP record Spiriva Respimat 2.5 mcg/actuation mist 2 puff inhalation DAILY Qty: 1 5RF fluticasone propion-salmeterol [Advair HFA] 115-21 mcg/actuation HFA aerosol inhaler 2 puff inhalation BID Qty: 12 5RF (DME) Oxygen Tank See Rx Instructions .Route Qty: 1 0RF Rx Instructions: 3Lpm via NC/mask at night aspirin [Aspir-81] 81 mg Tablet,Delayed Release (Dr/Ec) 81 mg PO DAILY oxybutynin chloride 5 mg Tablet 5 mg PO BID PRN Discharge Instructions Instructions: Community-Acquired Pneumonia, Adult (DC) Additional Instructions: * start antibiotics and steroids as prescribed * wear your oxygen at home as needed * continue inhalers * please schedule follow up with your academy education director HPI General Date/Time Provider Initiated Documentation: 05/10/24 11:39 . Limitations to Documentation: no limitations . Information obtained by: patient . HPI Narrative: 73-year-old female with past medical history including COPD presents for evaluation after having a COVID-positive test result to urgent care. Patient r eports that for the last 3 weeks she has been having cough. Cough productive of thick mucus. She contacted her academy education director at onset of infection and was prescribed azithromycin for 5 days as well as a 5-day steroid course. She reports that her symptoms have not improved. So she went to urgent care today for evaluation. Her COVID test was positive and she was sent to the emergency department for further testing. Patient reports that she does feel much better when she uses her albuterol inhalers. She does have oxygen to use at home as needed, she has not been using her oxygen at home during this 3 weeks. Related Data Home Medications Medication Instructions Recorded Confirmed albuterol sulfate 90 mcg/actuation 1 - 2 puff inhalation Q4H PRN 09/20/13 05/10/24 aerosol inhaler (ProAir HFA) aspirin 81 mg tablet,delayed 81 mg PO DAILY 05/17/19 05/10/24 release (Aspir-) oxybutynin chloride 5 mg tablet 5 mg PO BID PRN 05/17/19 05/10/24 losartan 50 mg tablet 50 mg PO DAILY 09/25/21 05/10/24 chlorthalidone 25 mg tablet 25 mg PO DAILY 11/26/21 05/10/24 fluoxetine 40 mg capsule 40 mg PO DAILY 11/26/21 05/10/24 methotrexate sodium 2.5 mg tablets 2.5 mg PO . Q WEEK 11/26/21 05/10/24 in a dose pack (Methotrexate (Anti-Rheumatic)) omeprazole 40 mg capsule,delayed 40 mg PO DAILY 11/26/21 05/10/24 release fluticasone propionate 115 2 puff inhalation BID #12 grams 12/14/21 05/10/24 mcg-salmeterol 21 mcg/actuation HFA inhaler (Advair HFA) tiotropium bromide 2.5 2 puff inhalation DAILY #1 inh 12/14/21 05/10/24 mcg/actuation mist for inhalation (Spiriva Respimat) Oxygen #1 ea 04/05/22 05/10/24 spironolactone 25 mg tablet 25 mg PO DAILY 02/25/23 05/10/24 fluticasone propionate 230 2 puff inhalation BID #12 grams 09/30/23 05/10/24 mcg-salmeterol 21 mcg/actuation HFA inhaler (Advair HFA) levofloxacin 750 mg tablet 750 mg PO DAILY 5 days #5 tabs 05/10/24 methylprednisolone 4 mg tablets in See Rx Instructions PO .COMPLEX 05/10/24 a dose pack (Medrol (Eyad)) #21 dose pk Previous Rx's Medication Instructions Recorded fluticasone propionate 115 2 puff inhalation BID #12 grams 12/14/21 mcg-salmeterol 21 mcg/actuation HFA inhaler (Advair HFA) tiotropium bromide 2.5 2 puff inhalation DAILY #1 inh 12/14/21 mcg/actuation mist for inhalation (Spiriva Respimat) Oxygen #1 ea 04/05/22 fluticasone propionate 230 2 puff inhalation BID #12 grams 09/30/23 mcg-salmeterol 21 mcg/actuation HFA inhaler (Advair HFA) levofloxacin 750 mg tablet 750 mg PO DAILY 5 days #5 tabs 05/10/24 methylprednisolone 4 mg tablets in See Rx Instructions PO .COMPLEX 05/10/24 a dose pack (Medrol (Eyad)) #21 dose pk Allergies Allergy/AdvReac Type Severity Reaction Status Date / Time No Known Allergies Allergy Unverified 05/10/24 10:06 General Stated Complaint: RespSymp LAURA: 3 Exam Narrative Exam Narrative: Review of Systems: All systems reviewed & are unremarkable except as noted in HPI and below Well-developed, no acute distress NCAT PERRL, normal conjunctiva RRR no murmur Unlabored respiratory effort, sats 92%, clear breath sounds in left lung peterson with coarse crackles in the right lower, no wheezing Nondistended abdomen Extremities w/o deformity, no cyanosis, no edema No rashes or lesions. no focal neurologic deficits Appropriate mood and affect Course Vital Signs Vital signs: Vital Signs Temperature 36.4 C L 05/10/24 11:28 Pulse 69 05/10/24 11:28 Respiratory Rate 20 05/10/24 11:28 Blood Pressure 86/27 L 05/10/24 11:28 Pulse Oximetry 92 05/10/24 11:28 Temperature 36.4 C L 05/10/24 11:28 Temperature Source Tympanic 05/10/24 11:28 Pulse 69 05/10/24 11:28 Respiratory Rate 20 05/10/24 11:28 Respiratory Effort Short of Breath 05/10/24 12:00 Respiratory Depth Normal 05/10/24 12:00 Blood Pressure 86/27 L 05/10/24 11:28 Blood Pressure Position Sitting 05/10/24 11:28 Pulse Oximetry 90 L 05/10/24 12:00 Oxygen Delivery Method Room Air 05/10/24 12:00 Oxygen Flow Rate 0 05/10/24 11:28 Pain Level 0 05/10/24 12:00 Medical Decision Making Emergent evaluation of COVID infection. Patient is high risk with COPD. Symptoms likely have been ongoing for the last 3 weeks when her symptoms star annie. No improvement with azithromycin. Concern for low oxygen saturation at urgent care, but in the emergency department she is maintaining her saturations appropriately. I do not suspect ACS or thromboembolic event. At this time she is outside of the window for any COVID treatments. I do suspect pneumonia. Will get chest x-ray to evaluate. Chest x-ray reviewed and independently interpreted. It is concerning for infiltrate, particularly in the right lower lobe where I hear the abnormality focal lung sounds. Will treat with a course of levofloxacin. Recommend continued albuterol use at home. Oxygen as needed for symptoms. Recommend that the patient follow-up with her academy education director for reevaluation. Return precautions have been advised. Discharged in good condition. Medical Records Medical records reviewed: Yes I reviewed the patient's medical records. Quality:SDOH Health Related Social Needs: No Data to Display PFSH All Active Problems (Updated 05/10/24 @ 13:17 by Psaquale Stout MD) Pneumonia (Acute) COVID (Acute) Asthma (Chronic) Asthma-COPD overlap syndrome (Acute) Respiratory failure with hypoxia (Acute) Personal history of nicotine dependence (Acute) COPD (chronic obstructive pulmonary disease) (Chronic) Pulmonary nodules (Acute) Frequent ventricular premature beats (Acute) Chronic cough (Acute) Urinary incontinence (Acute) LPRD (laryngopharyngeal reflux disease) (Chronic) Rheumatoid arthritis (Acute 09/20/13) Colon cancer screening (Acute) Medical History Obesity Depression Colitis Nephrolithiasis ETOH abuse Osteopenia Hyperplastic colonic polyp GERD (gastroesophageal reflux disease) Hypertension COPD (chronic obstructive pulmonary disease) Bilateral leg edema Prediabetes Multiple pulmonary nodules Lumbar back pain Osteoporosis Irregular heart beat Social History Smoking/Tobacco Use Status: Former Tobacco Use Quit Date: 07/18/07 Tobacco: How many years used: 40 Smoking risk assessment performed?: Yes Alcohol Intake: former Drug use: Never Current gender identity: female Do you feel safe at home: Yes Do you feel safe in your relationship?: Yes Additional Social history: Tobacco use ,quit 07/24 (1/2-1ppd x 40yrs)
[2024-05-10 13:04] VITALS: PULSE 72; O2SAT 92
== END 2024-05-10 13:44 | disposition home or self-care (01) ==
PROVIDERS: Emergency Provider Emergency Medicine; PCP Family Medicine
DX: U07.1 COVID-19 (principal); J12.82 Pneumonia due to coronavirus disease 2019; I10 Essential (primary) hypertension; J44.9 Chronic obstructive pulmonary disease, unspecified; Z99.81 Dependence on supplemental oxygen; Z79.82 Long term (current) use of aspirin; Z87.891 Personal history of nicotine dependence
CPT/HCPCS: 99283; 71046

== ENCOUNTER → 2024-05-18 13:32 | Outpatient (BNVA) | payer MEDICARE, SELFPAY | PROVIDERS: PCP Family Medicine; Referring Provider Family Medicine; Visit Provider Physician Assistant Surgical | DX: J18.9 Pneumonia, unspecified organism (principal); J96.91 Respiratory failure, unspecified with hypoxia; J44.9 Chronic obstructive pulmonary disease, unspecified; B37.0 Candidal stomatitis; U07.1 COVID-19 | CPT/HCPCS: 99214 ==

== ENCOUNTER 2024-05-18 15:50 | Inpatient (IN) | payer MEDICARE, SELFPAY ==
[2024-05-18] VITALS (63 sets, daily range): BP systolic 71–130; BP diastolic 18–94; PULSE 40–86; RESP 7–26; TEMP 35.3–36.5; O2SAT 95–98
--- NOTE | 2024-05-18 16:15 | RT.EKG_ITS ---
APPROVED REPORT Exam: Resting ECG Reason for Exam: Shortness of breath Patient Location: E HR:73 bpm ECG Measurements Heart Rate 73 AXIS LA 124 P 76 QRSd 81 QRS 48 QT 388 T 65 QTc 428 Conclusion Sinus rhythm...normal P axis, V-rate 60- 99 Ventricular bigeminy...bigeminy string>4 w/ V complexes Normal sinus rhythm at a rate of 73 with ventricular bigeminy. LA within normal limits. [place] QRS complexes are narrow. QTc within normal limits. No prior for comparison. No acute injury pattern.
--- NOTE | 2024-05-18 16:24 | W.ED.GENAD ---
Discharge Plan Disposition Patient Disposition: Admit to [facility] Discharge Details Clinical Impression: Oral thrush, Mouth ulcers, Acute kidney injury, Hypomagnesemia Admit Date/Time: 05/18/24 20:16 Admit Provider: Eulogio Sandy Attending Provider: Eulogio Sandy Primary Care Provider: Mounika Mccray ED Provider: Lyndon Ortiz Discharge Data Discharge Date/Time-TO BE ENTERED AT DEPARTURE: 05/18/24 21:56 HPI General Date/Time Provider Initiated Documentation: 05/18/24 15:52. HPI Narrative: MDM This is a chronically ill afebrile and not tachycardic 73-year-old female with fatigue shortness of breath and outpatient hypotension concerning for the possibility of sepsis for which blood cultures were drawn and lactate was checked and empiric antibiotics were given with cefepime and vancomycin. No pain out of proportion to suggest necrotizing soft tissue infection. Based on patient's sex and age with atypical symptoms we will obtain troponin to assess for myocardial injury. Patient has frequent burden of PVCs so we will assess her magnesium. Will obtain chest x-ray to assess for infiltrate. No dysuria nor frequency so doubt UTI. Patient has no significant wheezes nor prolonged expiratory phase to suggest exacerbation of her reactive airway disease. She does have bilateral B-lines concerning for the possibility of heart failure with preserved ejection fraction which could certainly be secondary to her pulmonary dysfunction. There also may be a component of pulmonary hypertension. No pain out of proportion to suggest necrotizing soft tissue infection. No trauma and equal breath sounds so doubt pneumothorax. No black nor bloody stools so doubt GI bleed. 6:07 PM Mildly elevated D-dimer. Portable chest x-ray with no acute cardiopulmonary process. Patient metabolic panel showed marked KYA with a creatinine bump from 1.1-2.2. CBC shows new leukopenia. Mild new anemia. No thrombocytopenia. Venous gas showing no acidemia nor hypercarbia. Mild lactic acidosis. Mild hypomagnesemia. Elevated proBNP. Negative troponin. Given bilateral B-lines will attempt trial with IV diuresis and add on urine studies given marked KYA. Given significant KYA we will cancel CT angiogram of chest and replace with dry CT to increase sensitivity for infiltrate. 7:45 PM I spoke with Dr. Sandy who agreed graciously to accept the patient for hospitalization. Given 20 mg of IV furosemide. I also replete her magnesium IV with 2 g. Given KYA we will add on urine protein and creatinine. CT chest with no obvious infiltrate. Patient does have groundglass opacifications in the lungs which certainly could be secondary to COVID or could be secondary to pulmonary edema. Chronic conditions affecting the care of the patient: Reactive airway disease History obtained from an outside historian: N/A External record review: No [facility] [place] Diagnostic interpretations performed by me: Per my independent interpretation chest x-ray shows: No acute cardiopulmonary process. Per my independent interpretation EKG shows: Normal sinus rhythm at a rate of 73 with ventricular bigeminy. ND within normal limits. [place] QRS complexes are narrow. QTc within normal limits. No prior for comparison. No acute injury pattern. ]Medications: Antibiotics fluids Social determinants of health affecting disposition: N/A Management discussed with: Hospitalist Treatment/interventions considered: CTA PE but deferred based on KYA. Response to therapies provided: N/A HPI This is a 73-year-old female with a history of rheumatoid arthritis and reactive airway disease. The emergency department via private vehicle in the setting of fatigue decreased appetite. Patient had a history of COVID last month with pneumonia. She reports that she is having increasing cough and increasing shortness of breath. She has had no nausea no vomiting. No chest pain or abdominal pain. No leg swelling. No unintentional weight loss. She reportedly had a sore throat last week. No fevers but patient does endorse chills. No dysuria nor frequency. No recent falls. Exam General: Chronically ill-appearing in no acute distress speaking in complete sentences. Head: Normocephalic, atraumatic. Eye: Extraocular eye movements intact. No conjunctival injection. No scleral icterus. Ear, nose, mouth, throat: Patient has some shallow-based oral ulcers and signs of thrush on her tongue. Normal voice, handling secretions normally. Neck: Trachea midline. Cardiovascular: Well-perfused distal extremities. Regular rhythm Respiratory: Nonlabored respiration. Decreased breath sounds bilateral bases Gastrointestinal: Nondistended abdomen. Soft nontender Musculoskeletal: No significant lower extremity pitting edema. Moving all 4 extremities spontaneously. Skin: Normal for age and race, grossly normal temperature and turgor. No acute rash. Neurologic: Alert and appropriate, no apparent acute deficits. Psychiatric: Mood and manner are appropriate. Grooming and personal hygiene are appropriate. Related Data Home Medications Medication Instructions Recorded Confirmed albuterol sulfate 90 mcg/actuation 1 - 2 puff inhalation Q4H PRN 09/20/13 05/18/24 aerosol inhaler (ProAir HFA) aspirin 81 mg tablet,delayed 81 mg PO DAILY 05/17/19 05/18/24 release (Aspir-) oxybutynin chloride 5 mg tablet 5 mg PO BID PRN 05/17/19 05/18/24 losartan 50 mg tablet 50 mg PO DAILY 09/25/21 05/18/24 fluoxetine 40 mg capsule 40 mg PO DAILY 11/26/21 05/18/24 methotrexate sodium 2.5 mg tablets 2.5 mg PO . Q WEEK 11/26/21 05/18/24 in a dose pack (Methotrexate (Anti-Rheumatic)) omeprazole 40 mg capsule,delayed 40 mg PO DAILY 11/26/21 05/18/24 release fluticasone propionate 115 2 puff inhalation BID #12 grams 12/14/21 05/18/24 mcg-salmeterol 21 mcg/actuation HFA inhaler (Advair HFA) tiotropium bromide 2.5 2 puff inhalation DAILY #1 inh 12/14/21 05/18/24 mcg/actuation mist for inhalation (Spiriva Respimat) Oxygen #1 ea 04/05/22 05/18/24 spironolactone 25 mg tablet 25 mg PO DAILY 02/25/23 05/18/24 fluticasone propionate 230 2 puff inhalation BID #12 grams 09/30/23 05/18/24 mcg-salmeterol 21 mcg/actuation HFA inhaler (Advair HFA) atorvastatin 20 mg tablet 20 mg PO DAILY high cholesterol 05/18/24 05/18/24 folic acid 1 mg tablet 1 mg PO DAILY I take Methotrexate 05/18/24 05/18/24 Previous Rx's Medication Instructions Recorded fluticasone propionate 115 2 puff inhalation BID #12 grams 12/14/21 mcg-salmeterol 21 mcg/actuation HFA inhaler (Advair HFA) tiotropium bromide 2.5 2 puff inhalation DAILY #1 inh 12/14/21 mcg/actuation mist for inhalation (Spiriva Respimat) Oxygen #1 ea 04/05/22 fluticasone propionate 230 2 puff inhalation BID #12 grams 09/30/23 mcg-salmeterol 21 mcg/actuation HFA inhaler (Advair HFA) Allergies Allergy/AdvReac Type Severity Reaction Status Date / Time No Known Allergies Allergy Unverified 05/18/24 16:01 General Stated Complaint: [facility]Medical LAURA: 2 Course Vital Signs Vital signs: Vital Signs Temperature 35.3 C L 05/18/24 15:57 Pulse 69 05/18/24 15:57 Respiratory Rate 16 05/18/24 15:57 Blood Pressure 105/39 L 05/18/24 15:57 Pulse Oximetry 95 05/18/24 15:57 Temperature 35.3 C L 05/18/24 15:57 Temperature Source Temporal Artery Scan 05/18/24 15:57 Pulse 69 05/18/24 15:57 Respiratory Rate 16 05/18/24 15:57 Respiratory Effort Normal, Non-Labored 05/18/24 16:01 Blood Pressure 105/39 L 05/18/24 15:57 Pulse Oximetry 95 05/18/24 15:57 Medical Decision Making Quality:SDOH Health Related Social Needs: No Data to Display PFSH All Active Problems (Updated 05/18/24 @ 21:47 by JIMMY QUACH) Hypotension due to drugs (Acute) PVC (premature ventricular contraction) (Acute) CHF (congestive heart failure) (Acute) Hypomagnesemia (Acute) Acute kidney injury (Acute) Mouth ulcers (Acute) Oral thrush (Acute) Thrush (Acute) Pneumonia (Acute) COVID (Acute) Asthma (Chronic) Asthma-COPD overlap syndrome (Acute) Respiratory failure with hypoxia (Acute) Personal history of nicotine dependence (Acute) COPD (chronic obstructive pulmonary disease) (Chronic) Pulmonary nodules (Acute) Frequent ventricular premature beats (Acute) Chronic cough (Acute) Urinary incontinence (Acute) LPRD (laryngopharyngeal reflux disease) (Chronic) Rheumatoid arthritis (Acute 09/20/13) Colon cancer screening (Acute) Medical History Obesity Depression Colitis Nephrolithiasis ETOH abuse Osteopenia Hyperplastic colonic polyp GERD (gastroesophageal reflux disease) Hypertension COPD (chronic obstructive pulmonary disease) Bilateral leg edema Prediabetes Multiple pulmonary nodules Lumbar back pain Osteoporosis Irregular heart beat Social History Smoking/Tobacco Use Status: Former Tobacco Use Quit Date: 07/18/07 Tobacco: How many years used: 40 Smoking risk assessment performed?: Yes Alcohol Intake: former Drug use: Never Housing: house Current gender identity: female Do you feel safe at home: Yes Do you feel safe in your relationship?: Yes Additional Social history: Tobacco use ,quit 07/24 (1/2-1ppd x 40yrs) POCUS Exam (ED) Limited Cardiac Exam DATE OF EXAM: 05/18/24 TIME OF EXAM: 18:31 PROVIDER THAT PERFORMED THE STUDY: Lyndon Ortiz IS THIS A REPEAT EXAM DURING THIS ENCOUNTER: no REASON FOR EXAM: Dyspnea VISUALIZED STRUCTURES: Four Chambers, Left ventricle, LVOT and Other structure: Bilateral lungs VIEW OBTAINED: Apical 4-Chamber, Parasternal long-axis and Subxiphoid PERTINENT FINDINGS/IMPRESSION: Other Bilateral B-lines ; No pericardial effusion and No RV dilation DIFFERENTIAL DIAGNOSES: Aortic outflow track less than 4 cm, good squeeze, RV less than LV, no significant pericardial effusion. Bilateral B-lines Exam complete
--- NOTE | 2024-05-18 17:06 | DI.RAD_ITS ---
Exam(s) XR PORTABLE CHEST AP EXAM: XR PORTABLE CHEST AP CLINICAL HISTORY: SOB TECHNIQUE: 2D digital imaging was performed of the chest. One image was obtained. An AP view was ob tained. COMPARISON: CR XR CHEST 2V PA LATERAL from 05/10/2024 CR XR CHEST 2V PA LATERAL from 05/18/2024 FINDINGS: MEDIASTINUM: Normal. HEART: Normal. PULMONARY VASCULATURE: Normal. LUNGS: Chronic interstitial fibrotic changes are present. No focal consolidating infiltrates are see n. The lungs are hyperinflated suggesting underlying COPD. PLEURAL SPACE: No pleural effusion or pneumothorax. BONE:Within normal limits for the patient's age. OTHER FINDINGS:Normal. IMPRESSION: No acute pulmonary findings. DATA REPOSITORY: RADIATION DOSE DELIVERED:
[2024-05-18 17:11] LABS: BE (Venous) -2 mmol/L (-2-3); HCO3 (Venous) 24 mmol/L (23-28); O2 Sat (Venous) 51 %; TCO2 (Venous) 23 mmol/L (24-29); pCO2 (Venous) 48 mmHg (41-51); pH (Venous) 7.31 (7.31-7.41); pO2 (Venous) 31 mmHg
[2024-05-18 17:16] LABS: Abs Immature Grans 0.04 10^3/uL (0.0-0.06); Absolute Eosinophil Count 0.12 10^3/uL (0.0-0.7); Absolute Lymphocyte Count 0.74 10^3/uL (1.2-3.4); Absolute Monocyte Count 0.23 10^3/uL (0.1-0.8); Eosinophils % 3.7 %; HCT 31.9 % (36.0-46.0); HGB 10.2 g/dL (11.2-15.7); Immature Grans % 1.2 %; Lactate 1.7 mmol/L (0.6-1.4); Lymphocytes % 22.9 %; MCH 31.5 pg (27.0-33.0); MCV 99 fL (80-95); MPV 10.2 fL (8.0-11.0); Monocytes % 7.1 %; Neutrophils % 65.1 %; Platelet Count 200 10^3/uL (130-400); RBC 3.24 10^6/uL (3.93-5.22); RDW 14.2 % (11.7-14.6); RDW-SD 50.5 fL; WBC 3.23 10^3/uL (4.4-10.8)
[2024-05-18] MEDS: CEFEPIME 2 GM in Normal Saline 100 ML IVPB (17:16)
[2024-05-18] MEDS: VANCOMYCIN/WATER (PEG) 1.25 GM/250 ML BAG IVPB (17:16)
[2024-05-18] MEDS: Normal Saline 500 ML IV (17:16)
[2024-05-18 17:41] LABS: Anion Gap 10.6 mmol/L (3-11); BUN 32 mg/dL (7-18); CO2 24.4 mmol/L (21.0-32.0); CREATININE 2.2 mg/dL (0.55-1.02); Calcium 8.6 mg/dL (8.5-10.1); Chloride 104 mmol/L (98-107); Estimated GFR 22.81 (mL/min/1.73m2); Glucose 91 mg/dL (74-106); Magnesium 1.5 mg/dL (1.8-2.4); NT-proBNP 890 pg/mL (<300); Sodium 139 mmol/L (136-145); Troponin I < 50 ng/L (< or =60)
[2024-05-18 17:46] LABS: D-Dimer 1131 ng/mlFEU (<500)
--- NOTE | 2024-05-18 18:15 | DI.CT_ITS ---
Exam(s) CT CHEST WO EXAM: CT CHEST WO CLINICAL HISTORY: ? Pneumonia. TECHNIQUE: Imaging protocol: Axial computed tomography images were obtained and coronal and sagittal reformatted images were created and reviewed. COMPARISON: CT CT CHEST LUNG CANCER SCREEN from 12/10/2021 CR XR PORTABLE CHEST AP from 05/18/2024 FINDINGS: Tracheobronchial tree: Patent where visualized. Mild bronchiectasis. No mucous plugging. Pulmonary parenchyma: Centrilobular and paraseptal emphysematous changes are present. There is inter stitial thickening in the periphery of the lungs particularly posteriorly in the bases likely reflect ing chronic fibrosis. Small ground-glass infiltrates are seen predominantly in the upper lobes, righ t greater than left. This may represent small vessel disease versus infection. No focal consolidati ng infiltrates are seen. Mediastinum and Astrid: No dominant adenopathy or fluid collection. The esophagus is unremarkable. Thyroid gland: There is a small subcentimeter nodule in the right lobe of the thyroid gland. No foll ow-up is recommended. Pleura: No effusion or pneumothorax. Heart: Mild cardiomegaly. Coronary artery calcifications are present. No pericardial effusion. Aorta: Thoracic aorta non-dilated. Atherosclerotic calcification is present. Upper abdomen: Cholelithiasis. There is fatty replacement of the pancreas. Lymph nodes: Within normal limits. Soft tissues: Unremarkable. Bones:Within normal limits for the patient's age. There is an old L1 compression fracture deformity. IMPRESSION: 1. Small ground-glass opacities in the lungs. Differential considerations include small vessel disea se, infection including atypical in causes, interstitial fibrosis, hypersensitivity pneumonitis and p ulmonary edema among other etiologies. 2. Centrilobular and paraseptal emphysema. 3. Pulmonary fibrosis. RADIATION DOSE DELIVERED: 401.96mGy.cm Total DLP 401.96mGy.cm Total DLP DATA REPOSITORY: All CT scans at this facility are submitted to the National Radiology Data Registry (NRDR) Dose Index Registry (DIR) with the [employer] ([employer]). RADIATION OPTIMIZATION: All CT scans at this facility use at least one of these dose optimization te chniques: automated exposure control; mA and/or kV adjustment per patient size (includes targeted exa ms where dose is matched to clinical indication); or iterative reconstruction.
[2024-05-18] MEDS: Enoxaparin 60 MG/0.6 ML SYR SC (18:41)
[2024-05-18] MEDS: Furosemide 20 MG/2 ML VIAL IVP (18:41)
[2024-05-18] MEDS: Magnesium Oxide 400 MG TAB PO (18:41)
[2024-05-18] MEDS: MAGNESIUM SULFATE 2 GM/50 ML BAG IVINF (19:53)
--- NOTE | 2024-05-18 19:54 | HPE_ITS ---
Date of service: 05/18/24 Time of Service: 19:55 Assessment and Plan Assessment and plan (1) CHF (congestive heart failure): Start date: 05/18/24 Status: Acute Assessment and plan: .This is a 73-year-old lady who was diagnosed with COVID-19 05/10/2024 and since then has had increased weakness with some shortness of breath. She has had no significant cough. She presents with low blood pressure on antihypertensives with KYA and evidence of fluid overload on POCUS of the lungs in the ED. He does not have any indication for treating her COVID at this time and may be overtreated with her acute process with her usual chlorthalidone and spironolactone as well as losartan. He is medically be held and patient will have IV diuresis with Lasix 40 mg twice daily. She was given a total of 40 mg IV upon admission. She is diuresing well and feels less short of breath. She will have follow-up imaging as needed along with updated echocardiogram as well as trend labs with diuresis. She is eating and drinking well. She is a full code. Qualifiers: Heart failure chronicity: acute on chronic Heart failure type: d iastolic Qualified Code(s): I50.33 - Acute on chronic diastolic (congestive) heart failure (2) Hypotension due to drugs: Start date: 05/18/24 Status: Acute Assessment and plan: Patient's 3 antihypertensive medications will be held for now adjusting as patient recovers from KYA hopefully with treatment of CHF. (3) Acute kidney injury: Start date: 05/18/24 Status: Acute Assessment and plan: Trend labs with patient being diuresed. Avoid IV fluids. Patient is eating and drinking well. (4) Hypomagnesemia: Start date: 05/18/24 Status: Acute Assessment and plan: With frequent PVCs repleted with 2 g magnesium sulfate IV. Follow-up labs and continue to replete as needed. Patient is chronically on diuretics with spironolactone and chlorthalidone. (5) COVID: Start date: 05/10/24 Status: Acute Assessment and plan: There is no indication for treating with dexamethasone patient not hypoxic and remdesivir is not indicated with patient not having severe COVID symptoms or findings. She still to be considered infectious with rapid COVID-positive. Continue to monitor clinically with supportive care. (6) COPD (chronic obstructive pulmonary disease): Status: Chronic Assessment and plan: Continue outpatient respiratory treatment and avoid nebulizers. Qualifiers: COPD type: emphysema Emphysema type: centrilobular Qualified Code(s): J43.2 - Centrilobular emphysema (7) Hypertension: Assessment and plan: Hold antihypertensives obesity once patient stabilizes. Qualifiers: Hypertension type: primary hypertension Qualified Code(s): I10 - Essential (primary) hypertension (8) Bilateral leg edema: Assessment and plan: Stable on chronic diuretics with chlorthalidone for hypertension and spironolactone for peripheral edema. Update echocardiogram. BNP was minimally elevated with patient being treated for heart failure with B-lines on POCUS of lungs. Patient is on standard DVT prophylaxis with Lovenox which is important with acute COVID infection as well. (9) PVC (premature ventricular contraction): Status: Chronic Assessment and plan: Improved with magnesium supplementation. Monitor. (10) Depression: Assessment and plan: Stable on treatment. Continue outpatient medical therapy. Qualifiers: Depression Type: persistent depressive disorder Qualified Code(s): F 34.1 - Dysthymic disorder (11) Rheumatoid arthritis: Status: Chronic Assessment and plan: Appears stable on outpatient medical therapy with methotrexate weekly. This treatment may be somewhat protected from severe COVID-19 symptoms complaining of bilateral response. She does have a minimally positive CRP and D-dimer but normal sed rate. Qualifiers: Rheumatoid arthritis location: other site Rheumatoid factor presence: w ith rheumatoid factor Qualified Code(s): M05.7A - Rheumatoid arthritis with rheumatoid factor of other specified site without organ or systems involvement History of Present Illness History of Present Illness Chief Complaint: Low blood pressure management at PCPs office with recent COVID Narrative: This is a 73-year-old female patient who is seen at her PCPs office and found to have a low blood pressure with recent COVID diagnosis on 05/10/2024 and a history of hypertension. She is on antihypertensives including spironolactone and chlorthalidone which also help with her chronic lower leg edema. She was brought to the ED by private vehicle and evaluation did reveal probable fluid overload with CHF, ED provider seeing B-lines with POCUS of the lungs. Also chest imaging did reveal groundglass opacities with possibility of pulmonary edema as well as infectious etiology such as COVID for which the patient is still testing positive with rapid COVID screening. Patient also had an elevation in her baseline creatinine with KYA most likely secondary to exacerbation of CHF. She does not appear dry by imaging and urinalysis. She is not hypoxic but is dyspneic and weak. She denies any fever and her appetite with oral intake has been adequate. She does have a history of peripheral edema on the left with a right lower extremity and this has been stable. She has chronic skin changes over the legs from edema. Overall the patient is not recovering quickly from her COVID infection but is slowly improving. She denies any significant cough though she does take inhalers chronically for COPD. The patient appears to have thrush according to the ED provider. She will be admitted for IV diuresis with Lasix holding her chlorthalidone and spironolactone as well as her losartan until blood pressure stabilizes. There is no indication for treatment of COVID with remdesivir or dexamethasone with patient not hypoxic and overall appearing well with now having severe COVID symptoms other than lung findings on exam and imaging. Procalcitonin was negative earlier in the day which was not seen to be done in the outpatient before being rechecked. Antibiotics are not indicated at this time though the patient initially received vancomycin and cefepime in the ED with question of sepsis with low blood pressure. Treatment for community-acquired pneumonia may be continued if patient has worsening symptoms or hypoxemia. Without oxygen needs, dexamethasone is not indicated. Follow-up lab with diuresis and echocardiogram will be updated in the morning. Patient already feels better with 1 dose of Lasix 20 mg IV and supportive care will be continued during this hospital stay. Her magnesium was low and this has been repleted with patient having some ectopy with frequent PVCs in the ED which have mostly resolved. The patient is a full code. Review of Systems Narrative: 13 point review of systems otherwise unrevealing or stable. Patient is chronically ill. COUNT INCLUDES THE [facility] All Active Problems (Updated 05/19/24 @ 00:08 by Eulogio Sandy) Hypotension due to drugs (Acute) PVC (premature ventricular contraction) (Chronic) CHF (congestive heart failure) (Acute) Hypomagnesemia (Acute) Acute kidney injury (Acute) Mouth ulcers (Acute) Oral thrush (Acute) Thrush (Acute) Pneumonia (Acute) COVID (Acute) Asthma (Chronic) Asthma-COPD overlap syndrome (Acute) Respiratory failure with hypoxia (Acute) Personal history of nicotine dependence (Acute) COPD (chronic obstructive pulmonary disease) (Chronic) Pulmonary nodules (Acute) Frequent ventricular premature beats (Acute) Chronic cough (Acute) Urinary incontinence (Acute) LPRD (laryngopharyngeal reflux disease) (Chronic) Rheumatoid arthritis (Chronic 09/20/13) Colon cancer screening (Acute) Medical History Obesity Depression Colitis Nephrolithiasis ETOH abuse Osteopenia Hyperplastic colonic polyp GERD (gastroesophageal reflux disease) Hypertension COPD (chronic obstructive pulmonary disease) Bilateral leg edema Prediabetes Multiple pulmonary nodules Lumbar back pain Osteoporosis Irregular heart beat Social History Smoking/Tobacco Use Status: Former Tobacco Use Quit Date: 07/18/07 Tobacco: How many years used: 40 Smoking risk assessment performed?: Yes Alcohol Intake: former Drug use: Never Housing: house Current gender identity: female Do you feel safe at home: Yes Do you feel safe in your relationship?: Yes Additional Social history: Tobacco use ,quit 07/24 (1/2-1ppd x 40yrs) Meds Allergies and Home Medications Allergies Allergy/AdvReac Type Severity Reaction Status Date / Time No Known Allergies Allergy Unverified 05/18/24 16:01 Home Medications Medication Instructions Recorded Confirmed Type albuterol sulfate 90 mcg/actuation 1 - 2 puff inhalation Q4H PRN 09/20/13 05/18/24 History aerosol inhaler (ProAir HFA) aspirin 81 mg tablet,delayed 81 mg PO DAILY 05/17/19 05/18/24 History release (Aspir-) oxybutynin chloride 5 mg tablet 5 mg PO BID PRN 05/17/19 05/18/24 History losartan 50 mg tablet 50 mg PO DAILY 09/25/21 05/18/24 History fluoxetine 40 mg capsule 40 mg PO DAILY 11/26/21 05/18/24 History methotrexate sodium 2.5 mg tablets 2.5 mg PO . Q WEEK 11/26/21 05/18/24 History in a dose pack (Methotrexate (Anti-Rheumatic)) omeprazole 40 mg capsule,delayed 40 mg PO DAILY 11/26/21 05/18/24 History release fluticasone propionate 115 2 puff inhalation BID #12 grams 12/14/21 05/18/24 Rx mcg-salmeterol 21 mcg/actuation HFA inhaler (Advair HFA) tiotropium bromide 2.5 2 puff inhalation DAILY #1 inh 12/14/21 05/18/24 Rx mcg/actuation mist for inhalation (Spiriva Respimat) Oxygen #1 ea 04/05/22 05/18/24 Rx spironolactone 25 mg tablet 25 mg PO DAILY 02/25/23 05/18/24 History fluticasone propionate 230 2 puff inhalation BID #12 grams 09/30/23 05/18/24 Rx mcg-salmeterol 21 mcg/actuation HFA inhaler (Advair HFA) atorvastatin 20 mg tablet 20 mg PO DAILY high cholesterol 05/18/24 05/18/24 History folic acid 1 mg tablet 1 mg PO DAILY I take Methotrexate 05/18/24 05/18/24 History Exam Narrative Exam Narrative: General: Patient is short stature and moderately obese ambulating without assistance in the room. She is alert and oriented x 3. She is in no acute distress. With ambulation she is not tachypneic. She does appear chronically ill. HEENT: Normocephalic, eyes with pupils equal and reactive light symmetrically, extraocular movement intact and sclera anicteric. Oropharynx with moist mucosa. Neck: Supple without JVD. Back: Kyphotic without CVA tenderness. Lungs: Decreased aeration diffusely with inspiratory coarse crackles nonlocalizing over all lung peterson. There is no expiratory wheeze or increased expiratory phase. No rhonchi. Bronchovesicular breath sounds diffusely. Heart: Bradycardic rate at times with irregular rhythm and infrequent extrasystoles. No appreciable murmur or gallop. Breast: Exam deferred. Abdomen: Obese contour, soft nontender to palpation no palpable hepatosplenomegaly. Bowel sounds positive in all quadrants. Genitalia/rectal: Exam deferred. Extremities: Nonpitting edema left more than right ankle which is minimal, chronic skin changes with hyperpigmentation and loss of hair as well as shiny atrophic skin worse in the left than right. No clubbing or cyanosis. Fair capillary refill. Skin: Skin tears of the lower extremities as mentioned otherwise normal color, warm and dry. Neuro: Cranial nerves II through XII gross intact, no focalizing motor deficits. No tremor. Psych: Normal affect though slightly flattened. Normal mood with no abnormal thought processes. Remote and recent memory grossly intact. Results Imaging Imaging Studies: EXAM: CT CHEST WO CLINICAL HISTORY: ? Pneumonia. TECHNIQUE: Imaging protocol: Axial computed tomography images were obtained and coronal and sagittal reformatted images were created and reviewed. COMPARISON: CT CT CHEST LUNG CANCER SCREEN from 12/10/2021 CR XR PORTABLE CHEST AP from 05/18/2024 FINDINGS: Tracheobronchial tree: Patent where visualized. Mild bronchiectasis. No mucous plugging. Pulmonary parenchyma: Centrilobular and paraseptal emphysematous changes are present. There is interstitial thickening in the periphery of the lungs particularly posteriorly in the bases likely reflecting chronic fibrosis. Small ground-glass infiltrates are seen predominantly in the upper lobes, right greater than left. This may represent small vessel disease versus infection. No focal consolidating infiltrates are seen. Mediastinum and Astrid: No dominant adenopathy or fluid collection. The esophagus is unremarkable. Thyroid gland: There is a small subcentimeter nodule in the right lobe of the thyroid gland. No follow-up is recommended. Pleura: No effusion or pneumothorax. Heart: Mild cardiomegaly. Coronary artery calcifications are present. No pericardial effusion. Aorta: Thoracic aorta non-dilated. Atherosclerotic calcification is present. Upper abdomen: Cholelithiasis. There is fatty replacement of the pancreas. Lymph nodes: Within normal limits. Soft tissues: Unremarkable. Bones:Within normal limits for the patient's age. There is an old L1 compression fracture deformity. IMPRESSION: 1. Small ground-glass opacities in the lungs. Differential considerations include small vessel disease, infection including atypical in causes, interstitial fibrosis, hypersensitivity pneumonitis and pulmonary edema among other etiologies. 2. Centrilobular and paraseptal emphysema. 3. Pulmonary fibrosis. EXAM: XR PORTABLE CHEST AP CLINICAL HISTORY: SOB TECHNIQUE: 2D digital imaging was performed of the chest. One image was obtained. An AP view was obtained. COMPARISON: CR XR CHEST 2V PA LATERAL from 05/10/2024 CR XR CHEST 2V PA LATERAL from 05/18/2024 FINDINGS: MEDIASTINUM: Normal. HEART: Normal. PULMONARY VASCULATURE: Normal. LUNGS: Chronic interstitial fibrotic changes are present. No focal consolidating infiltrates are seen. The lungs are hyperinflated suggesting underlying COPD. PLEURAL SPACE: No pleural effusion or pneumothorax. BONE:Within normal limits for the patient's age. OTHER FINDINGS:Normal. IMPRESSION: No acute pulmonary findings. Labs 05/18/24 17:05 05/18/24 17:05 Labs: Laboratory Results - last 24 hr 05/18/24 05/18/24 05/18/24 17:05 17:05 17:05 WBC 3.23 L RBC 3.24 L Hgb 10.2 L Hct 31.9 L MCV 99 H MCH 31.5 MCHC 32.0 RDW 14.2 Plt Count 200 MPV 10.2 Immature Gran % 1.2 Neutrophils % 65.1 Lymphocytes % 22.9 Monocytes % 7.1 Eosinophils % 3.7 Basophils % 0.0 Nucleated RBC % 0.0 Absolute Neutrophils 2.10 Absolute Lymphocytes 0.74 L Absolute Monocytes 0.23 Absolute Eosinophils 0.12 Absolute Basophils 0.00 D-Dimer 1131 H VBG pH 7.31 VBG pCO2 48 VBG pO2 31 VBG HCO3 24 VBG Total CO2 23 L VBG O2 Saturation 51 VBG Base Excess -2 VBG Lactate 1.7 H Sodium 139 Potassium 4.0 Chloride 104 Carbon Dioxide 24.4 Anion Gap 10.6 BUN 32 H Creatinine 2.2 H Est GFR (CKD-EPI 2020) 22.81 Glucose 91 Calcium 8.6 Magnesium 1.5 L Cancelled Cancelled Troponin I < 50 NT-Pro-B Natriuret Pep 05/18/24 05/18/24 17:05 17:05 WBC RBC Hgb Hct MCV MCH MCHC RDW Plt Count MPV Immature Gran % Neutrophils % Lymphocytes % Monocytes % Eosinophils % Basophils % Nucleated RBC % Absolute Neutrophils Absolute Lymphocytes Absolute Monocytes Absolute Eosinophils Absolute Basophils D-Dimer VBG pH VBG pCO2 VBG pO2 VBG HCO3 VBG Total CO2 VBG O2 Saturation VBG Base Excess VBG Lactate Sodium Potassium Chloride Carbon Dioxide Anion Gap BUN Creatinine Est GFR (CKD-EPI 2020) Glucose Calcium Magnesium Troponin I Cancelled NT-Pro-B Natriuret Pep 890 H Cancelled Last Vital Signs Temp 35.3 C L 05/18/24 15:57 Pulse 80 05/18/24 18:47 Resp 13 05/18/24 19:01 BP 107/79 05/18/24 19:01 Pulse Ox 98 05/18/24 16:17 Time Spent Time spent with Patient: >75 minutes Time was spent: preparing to see the patient(eg.review tests), obtaining and/or reviewing separately otained hiistory, ordering medications,tests, procedures, indepentently interpreting results, counseling the patient and care coordination
[2024-05-18 20:37] LABS: Troponin I < 50 ng/L (< or =60)
[2024-05-18 21:51] LABS: Bilirubin Negative (Negative); Blood Small (Negative); Clarity Clear (Clear); Glucose Negative (Negative); Ketones Negative (Negative); Leukocyte Esterase Small (Negative); Nitrite Negative (Negative); Urobilinogen 0.2 mg/dL (Up to 0.2); pH 5.5 (5-8)
[2024-05-18 22:06] LABS: Bacteria Negative HPF (Negative); C & S Indicated? No; Casts Negative LPF (Negative); Crystals Negative HPF (Negative); Epithelial Cells Rare HPF (Negative); Mucus Negative (Negative)
[2024-05-18 22:09] LABS: COMMENT (LAB VIEW ONLY) 15.78 mg/dL; PROTEIN 8.5 mg/dL; Prot/Crea Ur Ratio 0.53
--- NOTE | 2024-05-18 22:41 | W.PC.ACHO ---
Registration Status: REG ER Primary Language: Preferred Language: Bengali ED Information & Data Chief Complaint GenMedical 05/18/24 16:25 Triage Note fatigued, low appetite, 05/18/24 15:57 mouth sore, Seen in pulmonology clinic today lactate 2.5, leukopenia HX COVID last month with PNA Medical / Surgical History (Last Reviewed 05/18/24 @ 19:55 by Eulogio Sandy) Obesity Depression Colitis Nephrolithiasis ETOH abuse Osteopenia Hyperplastic colonic polyp GERD (gastroesophageal reflux disease) Hypertension COPD (chronic obstructive pulmonary disease) Bilateral leg edema Prediabetes Multiple pulmonary nodules Lumbar back pain Osteoporosis Irregular heart beat Most Recent Vital Signs Temperature 36.5 C 05/18/24 20:01 Temperature Source Temporal Artery Scan 05/18/24 15:57 Pulse 63 05/18/24 21:29 Pulse 71 05/18/24 21:31 Respiratory Rate 17 05/18/24 21:31 Respiratory Effort Short of Breath 05/18/24 16:17 Respiratory Depth Normal 05/18/24 16:17 Respiratory Pattern Normal 05/18/24 16:17 Blood Pressure 114/94 H 05/18/24 21:30 Blood Pressure Mean 98 05/18/24 21:30 Pulse Oximetry 98 05/18/24 16:17 Oxygen Delivery Method Room Air 05/18/24 16:17 Pain Level 7 05/18/24 16:17 Comment headache 05/18/24 16:17 Allergies No Known Allergies Allergy (Unverified 05/18/24 16:01) Precautions Isolation Protective precaution 05/18/24 16:01 Active Medications Generic Name Dose Route Start Last Admin Trade Name Freq PRN Reason Stop Dose Admin Enoxaparin Sodium 40 mg 05/18/24 21:00 05/18/24 21:40 Enoxaparin 40 Mg/0.4 Ml Syr SC Not Given Q24H BLADE IV IV Catheter Type [Right Saline Lock Antecubital] IV Catheter Type [Left Saline Lock Antecubital] IV Catheter Gauge [Right 18 Antecubital] IV Catheter Gauge [Left 20 Antecubital] Diet Orders Category Date Time Status Heart Healthy Eating [DIET] Nutrition 05/19/24 Breakfast Ordered Diagnostics 05/18/24 05/18/24 05/18/24 Range/Units 21:28 20:14 17:05 WBC (4.4-10.8) 10^3/uL RBC (3.93-5.22) 10^6/uL Hgb (11.2-15.7) g/dL Hct (36.0-46.0) % MCV (80-95) fL MCH (27.0-33.0) pg MCHC (32.0-36.0) % RDW (11.7-14.6) % Plt Count (130-400) 10^3/uL MPV (8.0-11.0) fL Immature Gran % % Neutrophils % % Lymphocytes % % Monocytes % % Eosinophils % % Basophils % % Nucleated RBC % (0.0-0.3) % Absolute Neutrophils (1.2-6.7) 10^3/uL Absolute Lymphocytes (1.2-3.4) 10^3/uL Absolute Monocytes (0.1-0.8) 10^3/uL Absolute Eosinophils (0.0-0.7) 10^3/uL Absolute Basophils (0.0-0.2) 10^3/uL D-Dimer (<500) ng/mlFEU VBG pH (7.31-7.41) VBG pCO2 (41-51) mmHg VBG pO2 mmHg VBG HCO3 (23-28) mmol/L VBG Total CO2 (24-29) mmol/L VBG O2 Saturation % VBG Base Excess (-2-3) mmol/L VBG Lactate (0.6-1.4) mmol/L Sodium (136-145) mmol/L Potassium (3.5-5.1) mmol/L Chloride (98-107) mmol/L Carbon Dioxide (21.0-32.0) mmol/L Anion Gap (3-11) mmol/L BUN (7-18) mg/dL Creatinine (0.55-1.02) mg/dL Est GFR (CKD-EPI 2020) (mL/min/1.73m2) Glucose (74-106) mg/dL Calcium (8.5-10.1) mg/dL Magnesium (1.8-2.4) mg/dL Troponin I < 50 (< or =60) ng/L NT-Pro-B Natriuret Pep Cancelled (<300) pg/mL Urine Color Pending Urine Clarity Pending Urine pH Pending Ur Specific [place] Pending Urine Protein Pending Urine Ketones Pending Urine Blood Pending Urine Nitrite Pending Urine Bilirubin Pending Urine Urobilinogen Pending Ur Leukocyte Esterase Pending Urine Glucose Pending 05/18/24 05/18/24 05/18/24 Range/Units 17:05 17:05 17:05 WBC (4.4-10.8) 10^3/uL RBC (3.93-5.22) 10^6/uL Hgb (11.2-15.7) g/dL Hct (36.0-46.0) % MCV (80-95) fL MCH (27.0-33.0) pg MCHC (32.0-36.0) % RDW (11.7-14.6) % Plt Count (130-400) 10^3/uL MPV (8.0-11.0) fL Immature Gran % % Neutrophils % % Lymphocytes % % Monocytes % % Eosinophils % % Basophils % % Nucleated RBC % (0.0-0.3) % Absolute Neutrophils (1.2-6.7) 10^3/uL Absolute Lymphocytes (1.2-3.4) 10^3/uL Absolute Monocytes (0.1-0.8) 10^3/uL Absolute Eosinophils (0.0-0.7) 10^3/uL Absolute Basophils (0.0-0.2) 10^3/uL D-Dimer (<500) ng/mlFEU VBG pH (7.31-7.41) VBG pCO2 (41-51) mmHg VBG pO2 mmHg VBG HCO3 (23-28) mmol/L VBG Total CO2 (24-29) mmol/L VBG O2 Saturation % VBG Base Excess (-2-3) mmol/L VBG Lactate (0.6-1.4) mmol/L Sodium (136-145) mmol/L Potassium (3.5-5.1) mmol/L Chloride (98-107) mmol/L Carbon Dioxide (21.0-32.0) mmol/L Anion Gap (3-11) mmol/L BUN (7-18) mg/dL Creatinine (0.55-1.02) mg/dL Est GFR (CKD-EPI 2020) (mL/min/1.73m2) Glucose (74-106) mg/dL Calcium (8.5-10.1) mg/dL Magnesium Cancelled Cancelled (1.8-2.4) mg/dL Troponin I Cancelled < 50 (< or =60) ng/L NT-Pro-B Natriuret Pep 890 H (<300) pg/mL Urine Color Urine Clarity Urine pH Ur Specific [place] Urine Protein Urine Ketones Urine Blood Urine Nitrite Urine Bilirubin Urine Urobilinogen Ur Leukocyte Esterase Urine Glucose 05/18/24 Range/Units 17:05 WBC 3.23 L (4.4-10.8) 10^3/uL RBC 3.24 L (3.93-5.22) 10^6/uL Hgb 10.2 L (11.2-15.7) g/dL Hct 31.9 L (36.0-46.0) % MCV 99 H (80-95) fL MCH 31.5 (27.0-33.0) pg MCHC 32.0 (32.0-36.0) % RDW 14.2 (11.7-14.6) % Plt Count 200 (130-400) 10^3/uL MPV 10.2 (8.0-11.0) fL Immature Gran % 1.2 % Neutrophils % 65.1 % Lymphocytes % 22.9 % Monocytes % 7.1 % Eosinophils % 3.7 % Basophils % 0.0 % Nucleated RBC % 0.0 (0.0-0.3) % Absolute Neutrophils 2.10 (1.2-6.7) 10^3/uL Absolute Lymphocytes 0.74 L (1.2-3.4) 10^3/uL Absolute Monocytes 0.23 (0.1-0.8) 10^3/uL Absolute Eosinophils 0.12 (0.0-0.7) 10^3/uL Absolute Basophils 0.00 (0.0-0.2) 10^3/uL D-Dimer 1131 H (<500) ng/mlFEU VBG pH 7.31 (7.31-7.41) VBG pCO2 48 (41-51) mmHg VBG pO2 31 mmHg VBG HCO3 24 (23-28) mmol/L VBG Total CO2 23 L (24-29) mmol/L VBG O2 Saturation 51 % VBG Base Excess -2 (-2-3) mmol/L VBG Lactate 1.7 H (0.6-1.4) mmol/L Sodium 139 (136-145) mmol/L Potassium 4.0 (3.5-5.1) mmol/L Chloride 104 (98-107) mmol/L Carbon Dioxide 24.4 (21.0-32.0) mmol/L Anion Gap 10.6 (3-11) mmol/L BUN 32 H (7-18) mg/dL Creatinine 2.2 H (0.55-1.02) mg/dL Est GFR (CKD-EPI 2020) 22.81 (mL/min/1.73m2) Glucose 91 (74-106) mg/dL Calcium 8.6 (8.5-10.1) mg/dL Magnesium 1.5 L (1.8-2.4) mg/dL Troponin I (< or =60) ng/L NT-Pro-B Natriuret Pep (<300) pg/mL Urine Color Urine Clarity Urine pH Ur Specific [place] Urine Protein Urine Ketones Urine Blood Urine Nitrite Urine Bilirubin Urine Urobilinogen Ur Leukocyte Esterase Urine Glucose 05/18/24 17:05 Blood Culture - Pending Blood 05/18/24 17:05 Blood Culture - Pending Blood Intake and Output - 24 Hour Total 05/18/24 15:50 thru 05/18/24 19:03 Intake Total 600 Balance 600 Weight 63.503 kg Intake: IV 600 Falls Risk Assessment History of Falls No History 05/18/24 16:17 Contributing Factors No Factors 05/18/24 16:17 Ambulatory Aids Independent 05/18/24 16:17 Tubes/Lines None 05/18/24 16:17 Gait Evaluation No gait disturbance 05/18/24 16:17 Cognition No cognitive impairment 05/18/24 16:17 Fall Total Score 0 05/18/24 16:17 Level of Risk Standard/Low Risk 05/18/24 16:17 Problems (Last Reviewed 05/18/24 @ 19:55 by Eulogio Sandy) Hypotension due to drugs (Acute) PVC (premature ventricular contraction) (Acute) CHF (congestive heart failure) (Acute) Hypomagnesemia (Acute) Acute kidney injury (Acute) Mouth ulcers (Acute) Oral thrush (Acute) COVID (Acute) COPD (chronic obstructive pulmonary disease) (Chronic) Rheumatoid arthritis (Acute 09/20/13) v v v v v v v v v Sending and/or Receiving Nurses: Please use comment section below to note any information pertinent to the patient hand-off not included above. Information / Comments: A&O x4 Independent VS: 36.6C, HR 60, BP 114/94, SpO2 95% on RA, R 17 Pt at pulmonology appt; increased fatigue, SOB, and hypotensive COVID+ on 05/10, rapid Flu/RSV/COVID done in ED; + COVID, -flu/RSV Lungs CTA in bilateral upper lobes, diminished in bases. 18G RAC, 20 LAC Meds received: 500 mL NS Bolus, PO & IV Mg for 1.5 Mg, 20 mg Lasix, 60 mg Lovenox, 2G Cefepime All Questions answered Report received from: SOMMER rKamer
[2024-05-19] VITALS (7 sets, daily range): BP systolic 96–111; BP diastolic 43–54; PULSE 50–75; RESP 16–19; TEMP 35.8–36.5; O2SAT 94–96
[2024-05-19 01:37] LABS: Procalcitonin < 0.1 ng/mL
[2024-05-19] MEDS: Normal Saline Flush 10 ML SYR IVP ×4 (02:29→21:30)
[2024-05-19] MEDS: Furosemide 20 MG/2 ML VIAL IVP (02:29)
[2024-05-19 07:04] LABS: HCT 31.8 % (36.0-46.0); HGB 10.5 g/dL (11.2-15.7); MCH 31.6 pg (27.0-33.0); MCV 96 fL (80-95); MPV 10.3 fL (8.0-11.0); Platelet Count 188 10^3/uL (130-400); RBC 3.32 10^6/uL (3.93-5.22); RDW 14.1 % (11.7-14.6); RDW-SD 48.8 fL; WBC 2.81 10^3/uL (4.4-10.8)
[2024-05-19 07:29] LABS: ALT 19 U/L (14-59); AST 16 U/L (15-37); Albumin 2.4 g/dL (3.4-5.0); Alkaline Phosphatase 69 U/L (46-116); Anion Gap 11.1 mmol/L (3-11); BUN 32 mg/dL (7-18); Bilirubin, Total 0.58 mg/dL (0.2-1.0); CO2 23.9 mmol/L (21.0-32.0); CREATININE 1.6 mg/dL (0.55-1.02); Calcium 8.4 mg/dL (8.5-10.1); Chloride 106 mmol/L (98-107); Estimated GFR 33.42 (mL/min/1.73m2); Glucose 88 mg/dL (74-106); Potassium 3.4 mmol/L (3.5-5.1); Sodium 141 mmol/L (136-145); Total Protein 5.7 g/dL (6.4-8.2)
[2024-05-19] MEDS: Budesonide/Formoterol 160/4.5 6 GM 60 PUFF INH IH ×2 (08:03→20:14)
[2024-05-19] MEDS: Tiotropium Bromide-Respimat 10 PUFF INH 2 PUFF IH (08:03)
[2024-05-19] MEDS: Omeprazole 20 MG CAPCR 40 MG PO (08:23)
[2024-05-19] MEDS: FLUoxetine 20 MG CAP 40 MG PO (08:24)
[2024-05-19] MEDS: Aspirin E.C. 81 MG TABEC PO (08:25)
[2024-05-19] MEDS: Furosemide 40 MG/4 ML VIAL IVP ×2 (08:27→15:46)
--- NOTE | 2024-05-19 08:58 | PDOC.CMIN ---
Date of service: 05/19/24 Time of Service: 08:58 Care Management Initial Assmt Initial Assessment Reason for Hospitalization: CHF Functional Status/Living Situation Patient Presentation: Ml is on Covid precautions so CM was unable to meet with her in person. CM was able to contact Ml by phone however. Ml stated that she is feeling a little better but is still not well. She reported that her biggest issue is that her mouth is so sore. She asked if CM could communicate that to the provider so that something could be ordered to help. CM relayed the message to her nurse and Nystatin was ordered by the provider. Ml is independent at baseline and does not anticipate the need for any new services when discharged. She did say she would be open to home health if it were recommended. 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) Instrumental Activities of Daily Living (ADLs): Independent Medications Medication Management: No Issues/Barriers identified Physical Functioning/Mobility Assistive Device: none Advance Directives Advance Directives: Do you have an Advance Directive: N 01/15/13 10:56 AD On File at [facility]: N 01/15/13 10:54 Date Asked 05/18/24 05/18/24 14:19 AD Date Reviewed COLST On File at [facility] COLST Date Scanned Code Status Resuscitation Status Full Code Insurance Coverage/Financial Issues Insurance: [facility] Medicare Replacement ACO Member: No Care Team Visit Care Team Role Provider Type Mounika Mccray MD Primary Care Provider [facility] STAFF PHYSICIAN Lyndon Ortiz MD Emergency Provider [facility] STAFF PHYSICIAN Eulogio Sandy Admit Provider NON-[facility] STAFF PHYSICIAN Attending Provider Discharge Potential Discharge Needs: PCP F/U Appt Anticipated Barriers to Discharge: None Identified Patient/Family Education Needs: Review discharge instructions, discuss Ask Me Three Transportation: Private vehicle Plan: Anticipate Ml will be discharged home with no new services when medically cleared. She will follow up with her PCP and plan of care and transport with family. CM will follow and continue to support discharge needs. PFSH All Active Problems (Updated 05/19/24 @ 00:08 by Eulogio Sandy) Hypotension due to drugs (Acute) PVC (premature ventricular contraction) (Chronic) CHF (congestive heart failure) (Acute) Hypomagnesemia (Acute) Acute kidney injury (Acute) Mouth ulcers (Acute) Oral thrush (Acute) Thrush (Acute) Pneumonia (Acute) COVID (Acute) Asthma (Chronic) Asthma-COPD overlap syndrome (Acute) Respiratory failure with hypoxia (Acute) Personal history of nicotine dependence (Acute) COPD (chronic obstructive pulmonary disease) (Chronic) Pulmonary nodules (Acute) Frequent ventricular premature beats (Acute) Chronic cough (Acute) Urinary incontinence (Acute) LPRD (laryngopharyngeal reflux disease) (Chronic) Rheumatoid arthritis (Chronic 09/20/13) Colon cancer screening (Acute) Medical History Obesity Depression Colitis Nephrolithiasis ETOH abuse Osteopenia Hyperplastic colonic polyp GERD (gastroesophageal reflux disease) Hypertension COPD (chronic obstructive pulmonary disease) Bilateral leg edema Prediabetes Multiple pulmonary nodules Lumbar back pain Osteoporosis Irregular heart beat Social History Smoking/Tobacco Use Status: Former Tobacco Use Quit Date: 07/18/07 Tobacco: How many years used: 40 Smoking risk assessment performed?: Yes Alcohol Intake: former Drug use: Never Housing: house Current gender identity: female Do you feel safe at home: Yes Do you feel safe in your relationship?: Yes Additional Social history: Tobacco use ,quit 07/24 (1/2-1ppd x 40yrs) SDOH(Care Management) Screening Will the Patient Participate in the Screening?: Declined to provide
--- NOTE | 2024-05-19 10:16 | PGE_ITS ---
Date of Service Date of service: 05/19/24 Time of Service: 10:17 Assessment and Plan Assessment and plan (1) CHF (congestive heart failure): Start date: 05/18/24 Status: Acute Assessment and plan: -diagnosed with COVID-19 05/10/2024 and since then has had increased weakness with some shortness of breath. -She has had no significant cough. -She presents with low blood pressure on antihypertensives with KYA and evidence of fluid overload on POCUS of the lungs in the ED. -holding home antihypertensives in favor of initiating lasix, currently on 40mg IV BID, f/u BPs and urine output -f/u TTE and adjust medication regimen based on results Qualifiers: Heart failure type: diastolic Heart failure chronicity: acute on chronic Qualified Code(s): I50.33 - Acute on chronic diastolic (congestive) heart failure (2) Hypotension due to drugs: Start date: 05/18/24 Status: Acute Assessment and plan: -Patient's 3 antihypertensive medications will be held for now adjusting as patient recovers from KYA hopefully with treatment of CHF. (3) Acute kidney injury: Start date: 05/18/24 Status: Acute Assessment and plan: -baseline Cr 1.1, up to 2.2 on admission -holding losartan and spironolactone as noted above -Cr down to 1.6 AM 05/19 (4) Hypomagnesemia: Start date: 05/18/24 Status: Acute Assessment and plan: -With frequent PVCs repleted with 2 g magnesium sulfate IV. -Follow-up labs and continue to replete as needed (5) COVID: Start date: 05/10/24 Status: Acute Assessment and plan: -There is no indication for treating with dexamethasone patient not hypoxic and remdesivir is not indicated with patient not having severe COVID symptoms or findings. -She still to be considered infectious with rapid COVID-positive. -Continue to monitor clinically with supportive care. (6) COPD (chronic obstructive pulmonary disease): Status: Chronic Assessment and plan: -Continue outpatient respiratory treatment and avoid nebulizers. Qualifiers: COPD type: emphysema Emphysema type: centrilobular Qualified Code(s): J43.2 - Centrilobular emphysema (7) Hypertension: Assessment and plan: -Hold antihypertensives obesity once patient stabilizes. Qualifiers: Hypertension type: primary hypertension Qualified Code(s): I10 - Essential (primary) hypertension (8) Bilateral leg edema: Assessment and plan: -stable, though may be related to possible new dx CHF as noted above (9) PVC (premature ventricular contraction): Status: Chronic Assessment and plan: -Improved with magnesium supplementation. Monitor. (10) Depression: Assessment and plan: -Stable on treatment. Continue outpatient medical therapy. Qualifiers: Depression Type: persistent depressive disorder Qualified Code(s): F34.1 - Dysthymic disorder (11) Rheumatoid arthritis: Status: Chronic Assessment and plan: -Appears stable on outpatient medical therapy with methotrexate weekly. This treatment may be somewhat protected from severe COVID-19 symptoms complaining of bilateral response. She does have a minimally positive CRP and D-dimer but normal sed rate. Qualifiers: Rheumatoid arthritis location: other site Rheumatoid factor presence: with rheumatoid factor Qualified Code(s): M05.7A - Rheumatoid arthritis with rheumatoid factor of other specified site without organ or systems involvement Subjective Subjective Interval history since last seen: Patient states that she is doing well today and is feeling better. She understands the plan to follow-up her echo results and adjust her medication regimen based on the results. Exam Narrative Exam Narrative: Well appearing older female laying in bed in no acute distress, AOX4, heart RRR, lungs CTAB, abdomen soft, non-tender, non-distended Objective Last Vital Signs Temp 97.2 F L 05/19/24 08:28 Pulse 70 05/19/24 08:28 Resp 17 05/19/24 08:28 BP 97/45 L 05/19/24 08:28 Pulse Ox 95 05/19/24 08:28 Laboratory Results - last 24 hr 05/18/24 05/18/24 05/18/24 17:05 17:05 17:05 WBC 3.23 L RBC 3.24 L Hgb 10.2 L Hct 31.9 L MCV 99 H MCH 31.5 MCHC 32.0 RDW 14.2 Plt Count 200 MPV 10.2 Immature Gran % 1.2 Neutrophils % 65.1 Lymphocytes % 22.9 Monocytes % 7.1 Eosinophils % 3.7 Basophils % 0.0 Nucleated RBC % 0.0 Absolute Neutrophils 2.10 Absolute Lymphocytes 0.74 L Absolute Monocytes 0.23 Absolute Eosinophils 0.12 Absolute Basophils 0.00 D-Dimer 1131 H VBG pH 7.31 VBG pCO2 48 VBG pO2 31 VBG HCO3 24 VBG Total CO2 23 L VBG O2 Saturation 51 VBG Base Excess -2 VBG Lactate 1.7 H Sodium 139 Potassium 4.0 Chloride 104 Carbon Dioxide 24.4 Anion Gap 10.6 BUN 32 H Creatinine 2.2 H Est GFR (CKD-EPI 2020) 22.81 Glucose 91 Calcium 8.6 Magnesium 1.5 L Cancelled Cancelled Total Bilirubin AST ALT Alkaline Phosphatase Troponin I < 50 NT-Pro-B Natriuret Pep Total Protein Albumin Procalcitonin Urine Color Urine Clarity Urine pH Ur Specific Dexter Urine Protein Urine Ketones Urine Blood Urine Nitrite Urine Bilirubin Urine Urobilinogen Ur Leukocyte Esterase Urine RBC Urine WBC Ur Epithelial Cells Urine Crystals Urine Bacteria Urine Casts Urine Mucus Ur Culture Indicated? Ur Random Creatinine U Random Total Protein U [place] Prot/Creat Ratio Urine Glucose 05/18/24 05/18/24 05/18/24 17:05 17:05 20:14 WBC RBC Hgb Hct MCV MCH MCHC RDW Plt Count MPV Immature Gran % Neutrophils % Lymphocytes % Monocytes % Eosinophils % Basophils % Nucleated RBC % Absolute Neutrophils Absolute Lymphocytes Absolute Monocytes Absolute Eosinophils Absolute Basophils D-Dimer VBG pH VBG pCO2 VBG pO2 VBG HCO3 VBG Total CO2 VBG O2 Saturation VBG Base Excess VBG Lactate Sodium Potassium Chloride Carbon Dioxide Anion Gap BUN Creatinine Est GFR (CKD-EPI 2020) Glucose Calcium Magnesium Total Bilirubin AST ALT Alkaline Phosphatase Troponin I Cancelled < 50 NT-Pro-B Natriuret Pep 890 H Cancelled Total Protein Albumin Procalcitonin < 0.1 Urine Color Urine Clarity Urine pH Ur Specific Dexter Urine Protein Urine Ketones Urine Blood Urine Nitrite Urine Bilirubin Urine Urobilinogen Ur Leukocyte Esterase Urine RBC Urine WBC Ur Epithelial Cells Urine Crystals Urine Bacteria Urine Casts Urine Mucus Ur Culture Indicated? Ur Random Creatinine U Random Total Protein U [place] Prot/Creat Ratio Urine Glucose 05/18/24 05/19/24 21:27 06:45 WBC 2.81 L RBC 3.32 L Hgb 10.5 L Hct 31.8 L MCV 96 H MCH 31.6 MCHC 33.0 RDW 14.1 Plt Count 188 MPV 10.3 Immature Gran % Neutrophils % Lymphocytes % Monocytes % Eosinophils % Basophils % Nucleated RBC % Absolute Neutrophils Absolute Lymphocytes Absolute Monocytes Absolute Eosinophils Absolute Basophils D-Dimer VBG pH VBG pCO2 VBG pO2 VBG HCO3 VBG Total CO2 VBG O2 Saturation VBG Base Excess VBG Lactate Sodium 141 Potassium 3.4 L Chloride 106 Carbon Dioxide 23.9 Anion Gap 11.1 H BUN 32 H Creatinine 1.6 H Est GFR (CKD-EPI 2020) 33.42 Glucose 88 Calcium 8.4 L Magnesium 2.0 Total Bilirubin 0.58 AST 16 ALT 19 Alkaline Phosphatase 69 Troponin I NT-Pro-B Natriuret Pep Total Protein 5.7 L Albumin 2.4 L Procalcitonin Urine Color Yellow Urine Clarity Clear Urine pH 5.5 Ur Specific Dexter 1.010 Urine Protein Negative Urine Ketones Negative Urine Blood Small H Urine Nitrite Negative Urine Bilirubin Negative Urine Urobilinogen 0.2 Ur Leukocyte Esterase Small H Urine RBC 5-10 H Urine WBC 3-5 Ur Epithelial Cells Rare Urine Crystals Negative Urine Bacteria Negative Urine Casts Negative Urine Mucus Negative Ur Culture Indicated? No Ur Random Creatinine 15.78 U Random Total Protein 8.5 U [place] Prot/Creat Ratio 0.53 Urine Glucose Negative Time Spent with Patient Time Spent with Patient: >50 minutes Time was spent: preparing to see the patient(eg.review tests), obtaining and/or reviewing separately otained hiistory, ordering medications,tests, procedures, referring, communicating with other health career discovery teacher, indepentently interpreting results, counseling the patient and care coordination
[2024-05-19] MEDS: Enoxaparin 30 MG/0.3 ML SYR SC (18:17)
[2024-05-19] MEDS: Atorvastatin 20 MG TAB PO (21:30)
[2024-05-19] MEDS: Nystatin 500000 UNITS/5 ML SUSP 5ML CUP PO (21:30)
[2024-05-20] VITALS (11 sets, daily range): BP systolic 83–129; BP diastolic 41–76; PULSE 51–100; RESP 12–20; TEMP 35.6–37; O2SAT 91–95
[2024-05-20] MEDS: Benzonatate 200 MG CAP PO ×2 (00:29→21:50)
[2024-05-20] MEDS: guaiFENesin 600 MG TABCR PO ×3 (00:29→21:50)
[2024-05-20] MEDS: Normal Saline Flush 10 ML SYR IVP ×3 (00:54→21:54)
--- NOTE | 2024-05-20 07:00 | DI.RAD_ITS ---
Exam(s) XR ANKLE LT COMPLETE EXAM: XR ANKLE LT COMPLETE CLINICAL HISTORY: Fall: LLE swelling TECHNIQUE: 2D digital imaging was performed of the left ankle. Three images were obtained. AP, lat eral and oblique views were obtained. COMPARISON: CR LEFT ANKLE COMPLETE from 11/30/2010 CR LEFT FOOT LIMITED from 06/04/2011 FINDINGS: BONES: There is an oblique lucency through the distal left fibula. The findings are suspicious for n ondisplaced fracture. The possibility of an old healed fracture deformity should also be considered. No bony destructive lesion is seen. JOINTS:The ankle mortise is normally aligned. There is an old 1st MTP joint effusion. SOFT TISSUE: There is minimal soft tissue swelling of the ankle laterally. IMPRESSION: 1. Oblique lucency over the distal fibula at the level of the ankle mortise. Findings are suspicious for nondisplaced fracture. CT scan of the ankle should be considered for better characterization. 2. Findings were discussed with Dr. Potter on 05/20/2024 at 12:40 p.m.. DATA REPOSITORY: RADIATION DOSE DELIVERED:
--- NOTE | 2024-05-20 07:00 | RT.EKG_ITS ---
APPROVED REPORT Exam: Resting ECG Reason for Exam: Syncopal episode Patient Location: I HR:63 bpm ECG Measurements Heart Rate 63 AXIS MN 123 P 55 QRSd 81 QRS 52 QT 417 T 60 QTc 427 Conclusion Sinus rhythm...normal P axis, V-rate 50- 99 Ventricular trigeminy...trigeminy string>6 w/ V complexes
[2024-05-20] MEDS: Tiotropium Bromide-Respimat 10 PUFF INH 2 PUFF IH (07:49)
[2024-05-20] MEDS: Budesonide/Formoterol 160/4.5 6 GM 60 PUFF INH IH ×2 (07:49→21:53)
[2024-05-20 08:08] LABS: HCT 31.7 % (36.0-46.0); HGB 10.3 g/dL (11.2-15.7); MCH 31.6 pg (27.0-33.0); MCHC 32.5 % (32.0-36.0); MCV 97 fL (80-95); MPV 10.2 fL (8.0-11.0); Platelet Count 167 10^3/uL (130-400); RBC 3.26 10^6/uL (3.93-5.22); RDW-SD 49.7 fL; WBC 4.86 10^3/uL (4.4-10.8)
[2024-05-20 08:16] LABS: Anion Gap 7.2 mmol/L (3-11); BUN 29 mg/dL (7-18); CO2 28.8 mmol/L (21.0-32.0); CREATININE 1.5 mg/dL (0.55-1.02); Calcium 8.2 mg/dL (8.5-10.1); Chloride 103 mmol/L (98-107); Estimated GFR 36.12 (mL/min/1.73m2); Glucose 106 mg/dL (74-106); Potassium 3.4 mmol/L (3.5-5.1); Sodium 139 mmol/L (136-145)
[2024-05-20] MEDS: Nystatin 500000 UNITS/5 ML SUSP 5ML CUP PO ×4 (08:49→21:49)
[2024-05-20] MEDS: Furosemide 40 MG/4 ML VIAL IVP (08:50)
[2024-05-20] MEDS: FLUoxetine 20 MG CAP 40 MG PO (08:51)
[2024-05-20] MEDS: Aspirin E.C. 81 MG TABEC PO (08:51)
[2024-05-20] MEDS: Omeprazole 20 MG CAPCR 40 MG PO (08:51)
[2024-05-20] MEDS: Potassium Chloride 20 MEQ TABCR 40 MEQ PO (10:12)
--- NOTE | 2024-05-20 10:17 | DI.VRAD_ITS ---
PROCEDURE INFORMATION: Exam: XR Left Ankle Exam date and time: 05/20/2024 8:23 AM Age: 73 years old Clinical indication: Injury or trauma; Sprain or strain; Ankle; Left; Patient HX: S/P fall, lle swelling. TECHNIQUE: Imaging protocol: Radiologic exam of the left ankle. Views: 3 or more views. Non-weightbearing AP, oblique and lateral images. COMPARISON: No relevant prior studies available. FINDINGS: Bones/joints: Normal ankle mortise is intact. Examination negative for fracture or dislocation. Soft tissues: Edema overlying the anterolateral portion ankle. IMPRESSION: Examination negative for fracture or dislocation. Nonspecific soft tissue edema likely from ligamentous injury. Dictated and Authenticated by: Mario Fang MD. Ordering:CHENTE Haney MD
--- NOTE | 2024-05-20 13:12 | W.PM.PROGNOT ---
Date of Service Date of service: 05/20/24 Time of Service: 13:12 Assessment and Plan Assessment and plan (1) Syncope: Status: Chronic Assessment and plan: This morning after brushing teeth. Fortunately she was on telemetry and no events recorded. Repeat EKG reassuring. She just had reassuring echocardiogram yesterday. No signs/symptoms of head trauma and benign neurologic exam. I think she may be overdiuresed at this point, will hold furosemide, get orthostatics. Qualifiers: Syncope type: unspecified Qualified Code(s): R55 - Syncope and collapse (2) Hypotension due to drugs: Start date: 05/18/24 Status: Acute Assessment and plan: -Patient's 2 antihypertensive medications losartan and spironolactone have been held. She has been getting 40mg IV BID of furosemide. Blood pressure still on low end, syncopal event. Stop furosemide, get orthostatics, follow. (3) Fracture of distal end of left fibula: Status: Acute Assessment and plan: unfortunately she seems to have a fibular fracture. Non-weight bearing for now with tall boot, ortho consult. Qualifiers: Encounter type: initial encounter Fracture type: closed Fracture morphology: other fracture Qualified Code(s): S82.832A - Other fracture of upper and lower end of left fibula, initial encounter for closed fracture (4) CHF (congestive heart failure): Start date: 05/18/24 Status: Acute Assessment and plan: -diagnosed with COVID-19 05/10/2024 and since then has had increased weakness with some shortness of breath. -Cough and upper respiratory symtpoms have resolved. -She presented with low blood pressure on antihypertensives with KYA and rales and LE edema and b-lines on POCUS of the lungs in the ED, treated for CHF. However BNaP not impressive and b-lines could be related to COVID and/or fibrosis, CT not impressive for fluid overload. -TTE showed nl LVEF and no congestion of IVC, not suggesting acute CHF on 05/19 (after some diuresis). -With syncope, I am stopping furosemide today Qualifiers: Heart failure type: diastolic Heart failure chronicity: acute on chronic Qualified Code(s): I50.33 - Acute on chronic diastolic (congestive) heart failure (5) Pulmonary fibrosis: Status: Acute Assessment and plan: Ground glass nodularity as well as interstitial lung disease and fibrosis on CT. This does appear new since last CT in 12/10/21. She just had COVID, which could explain. She is also on methotrexate which can cause fibrosis. She has pulmonology and should follow up with them. (6) Acute kidney injury: Start date: 05/18/24 Status: Acute Assessment and plan: -baseline Cr 1.1, up to 2.2 on admission -holding losartan and spironolactone as noted above -Cr down to 1.5 AM 05/20. Follow (7) Hypomagnesemia: Start date: 05/18/24 Status: Acute Assessment and plan: -With frequent PVCs repleted this and potassium, follow. (8) COVID: Start date: 05/10/24 Status: Acute Assessment and plan: -There was no indication for treating with dexamethasone patient has not been hypoxic and remdesivir is not indicated with patient not having severe COVID symptoms or findings. -She is now 10 days from her positive test and not respiratory symptoms, we can discontinue precautions. -Continue to monitor clinically with supportive care. (9) COPD (chronic obstructive pulmonary disease): Status: Chronic Assessment and plan: -Continue outpatient respiratory treatment and avoid nebulizers. Qualifiers: COPD type: emphysema Emphysema type: centrilobular Qualified Code(s): J43.2 - Centrilobular emphysema (10) Hypertension: Assessment and plan: -Holding antihypertensives as above. Qualifiers: Hypertension type: primary hypertension Qualified Code(s): I10 - Essential (primary) hypertension (11) Depression: Assessment and plan: -Stable on treatment. Continue outpatient medical therapy. Qualifiers: Depression Type: persistent depressive disorder Qualified Code(s): F34.1 - Dysthymic disorder (12) Rheumatoid arthritis: Status: Chronic Assessment and plan: -Has been stable on outpatient medical therapy with methotrexate weekly. Holding for now. With pulmonary fibrosis on CT, MTX therapy may be reconsidered. Qualifiers: Rheumatoid arthritis location: other site Rheumatoid factor presence: with rheumatoid factor Qualified Code(s): M05.7A - Rheumatoid arthritis with rheumatoid factor of other specified site without organ or systems involvement Subjective Subjective Patient reports: tolerating a regular diet and voiding w/o difficulty (some incontinence); denies vomiting, shortness of breath or fever Interval history since last seen: Events: at 6:55 am RN called, patient was up brushing teeth and had syncopal episode, woke up on floor. Left ankle pain since. No obvious head trauma. No headache since. No associated chest pain, palpitations, or shortness of breath. She did feel a little nauseous before she passed out. She is not dizzy now, but she feels the same fatigue and lack of mental sharpness that she has felt since COVID. Her partner says she has abnormal color and she hasn't been herself during this time. no focal weaknes, vision change, or other new symtpoms. Exam Narrative Exam Narrative: Well appearing older female laying in bed in no acute distress, AOX4, heart RRR without murmur. Lungs clear anteriorly, rales in bilateral bases posteriorly 1/4 up lung peterson with slight wheeze in this area only, abdomen soft, non-tender, non-distended. Legs without cyanosis or edema, warm, not tender x left lateral malleolus. No overt swelling, flexes/extends without significant pain. CN 2-12 intact, nl strength and sensation in 4 extremities, normal speech and coordination, negative pronator drift, no tremor. She is able to stand, but needs support on that left ankle to take a few steps. Balance normal. Objective Last Vital Signs Temp 36.7 C 05/20/24 12:36 Pulse 64 05/20/24 12:36 Resp 18 05/20/24 12:36 BP 100/54 L 05/20/24 12:36 Pulse Ox 95 05/20/24 12:36 Laboratory Results - last 24 hr 05/20/24 08:00 WBC 4.86 RBC 3.26 L Hgb 10.3 L Hct 31.7 L MCV 97 H MCH 31.6 MCHC 32.5 RDW 14.0 Plt Count 167 MPV 10.2 Sodium 139 Potassium 3.4 L Chloride 103 Carbon Dioxide 28.8 Anion Gap 7.2 BUN 29 H Creatinine 1.5 H Est GFR (CKD-EPI 2020) 36.12 Glucose 106 Calcium 8.2 L Time Spent with Patient Time Spent with Patient: >50 minutes Time was spent: preparing to see the patient(eg.review tests), obtaining and/or reviewing separately otained hiistory, ordering medications,tests, procedures, referring, communicating with other health healthcare social worker, indepentently interpreting results, counseling the patient and care coordination
[2024-05-20] MEDS: Acetaminophen 325 MG TAB PO ×2 (17:40→23:43)
[2024-05-20] MEDS: Atorvastatin 20 MG TAB PO (21:49)
[2024-05-20] MEDS: Oxybutynin 5 MG TAB PO (21:50)
[2024-05-20] MEDS: Docusate Sodium 100 MG CAP PO (21:50)
[2024-05-21] VITALS (12 sets, daily range): BP systolic 90–114; BP diastolic 26–73; PULSE 50–76; RESP 15–16; TEMP 36–36.6; O2SAT 92–95
[2024-05-21 06:21] LABS: Anion Gap 5.9 mmol/L (3-11); BUN 26 mg/dL (7-18); CO2 28.1 mmol/L (21.0-32.0); CREATININE 1.4 mg/dL (0.55-1.02); Calcium 8.1 mg/dL (8.5-10.1); Chloride 104 mmol/L (98-107); Estimated GFR 39.23 (mL/min/1.73m2); Glucose 98 mg/dL (74-106); Sodium 138 mmol/L (136-145)
[2024-05-21 06:27] LABS: Magnesium 1.7 mg/dL (1.8-2.4)
[2024-05-21] MEDS: guaiFENesin 600 MG TABCR PO ×2 (08:00→20:57)
[2024-05-21] MEDS: Omeprazole 20 MG CAPCR 40 MG PO (08:01)
[2024-05-21] MEDS: Folic Acid 1 MG TAB PO (08:01)
[2024-05-21] MEDS: Aspirin E.C. 81 MG TABEC PO (08:01)
[2024-05-21] MEDS: Oxybutynin 5 MG TAB PO ×2 (08:02→20:57)
[2024-05-21] MEDS: Nystatin 500000 UNITS/5 ML SUSP 5ML CUP PO ×4 (08:02→20:57)
[2024-05-21] MEDS: FLUoxetine 20 MG CAP 40 MG PO (08:02)
[2024-05-21] MEDS: Normal Saline Flush 10 ML SYR IVP ×4 (08:03→20:59)
[2024-05-21] MEDS: Tiotropium Bromide-Respimat 10 PUFF INH 2 PUFF IH (08:23)
[2024-05-21] MEDS: Budesonide/Formoterol 160/4.5 6 GM 60 PUFF INH IH ×2 (08:23→20:08)
[2024-05-21] MEDS: MAGNESIUM SULFATE 1 GM/100 ML BAG IVINF (09:13)
[2024-05-21] MEDS: Acetaminophen 325 MG TAB PO ×3 (09:20→22:45)
--- NOTE | 2024-05-21 09:31 | PDOC.CMPRO ---
Date of service: 05/21/24 Time of Service: 09:32 Care Management Progress Note Progress Note Text Progress Note Text: Ml was sitting up in a chair when CM met with her. She was in good spirits and engaged easily with CM. Ml stated that she is feeling much better. She had Covid and then developed CHF requiring admission. She is now off isolation and is independent in her room. Apparently yesterday Ml had a syncopal episode and landed on the floor and fractured her distal left tibia. Today she was fitted with a walking boot. Ml seemed to take the episode in stride stating that :these things happen. She informed CM that it wasn't all that painful and that it will heal. ml hopes to be able to go home soon. Discharge Potential Discharge Needs: PCP F/U Appt Anticipated Barriers to Discharge: Medical Status Patient/Family Education Needs: Review discharge instructions, discuss Ask Me Three Transportation: Private vehicle Plan: Anticipate Ml will be discharged home with no new services when medically cleared. She will follow up with her PCP and plan of care and transport with family. CM will follow and continue to support discharge needs. SDOH(Care Management) Screening Will the Patient Participate in the Screening?: Declined to provide
--- NOTE | 2024-05-21 10:44 | CHAPLAIN ---
Ml is off COVID precautions now, so I'm visiting for the first time during this admission. Ml was very pleasant. She had someone on the room with her, I'm not sure of his relationship to Ml. Ml said she's beginning to feel better, but is tired. I explained my role and offered support.
--- NOTE | 2024-05-21 13:09 | W.PM.PROGNOT ---
Date of Service Date of service: 05/21/24 Time of Service: 13:09 Assessment and Plan Assessment and plan (1) Syncope: Status: Chronic Assessment and plan: 05/20 AM after brushing teeth. Fortunately she was on telemetry and no events recorded. Repeat EKG reassuring. Echocardiogram done 05/19 reassuring. She is orthostatic, likely was overdiuresed. We are holding diuretics and BP medications. She is taking good oral fluid and food. I want to monitor her until orthostasis resolves. I will not give IV fluids given she seemed to have CHF on admission and has some diastolic dysfunction on echo. Qualifiers: Syncope type: unspecified Qualified Code(s): R55 - Syncope and collapse (2) Hypotension due to drugs: Start date: 05/18/24 Status: Acute Assessment and plan: -Patient's 2 antihypertensive medications losartan and spironolactone have been held. She was been getting 40mg IV BID of furosemide. Stopped 05/20 after syncope/orthostasis. (3) Fracture of distal end of left fibula: Status: Acute Assessment and plan: unfortunately she seems to have a fibular fracture. Ortho confirms Dr. Broderick's read. She can bear weight with tall ankle boot, okay to remove when in bed. Work with PT. Can follow up with orthopedics formally as outpatient. Qualifiers: Encounter type: initial encounter Fracture type: closed Fracture morphology: other fracture Qualified Code(s): S82.832A - Other fracture of upper and lower end of left fibula, initial encounter for closed fracture (4) CHF (congestive heart failure): Start date: 05/18/24 Status: Acute Assessment and plan: -diagnosed with COVID-19 05/10/2024 and since then has had increased weakness with some shortness of breath. -Cough and upper respiratory symtpoms have improved. -She presented with low blood pressure on antihypertensives with KYA and rales and LE edema and b-lines on POCUS of the lungs in the ED, treated for CHF. However BNaP not impressive and b-lines could be related to COVID and/or fibrosis, CT not impressive for fluid overload. -TTE showed nl LVEF and no congestion of IVC, not suggesting acute CHF on 05/19 (after some diuresis). She does have grade 1 diastolic dysfunction. -Furosemide stopped 05/20 AM after syncope. Continue to monitor, see above. Qualifiers: Heart failure type: diastolic Heart failure chronicity: acute on chronic Qualified Code(s): I50.33 - Acute on chronic diastolic (congestive) heart failure (5) Pulmonary fibrosis: Status: Acute Assessment and plan: Ground glass nodularity as well as interstitial lung disease and fibrosis on CT. This does appear new since last CT in 12/10/21. She just had COVID, which could explain. She is also on methotrexate which can cause fibrosis. She has pulmonology and should follow up with them about these findings. (6) Acute kidney injury: Start date: 05/18/24 Status: Acute Assessment and plan: -baseline Cr 1.1, up to 2.2 on admission -holding losartan and spironolactone as noted above -Cr down to 1.4 AM 05/21, slowly improving. Follow (7) Hypomagnesemia: Start date: 05/18/24 Status: Acute Assessment and plan: -With frequent PVCs repleted again today, follow. Likely caused by diuretics. (8) COVID: Start date: 05/10/24 Status: Acute Assessment and plan: -There was no indication for treating with dexamethasone patient has not been hypoxic and remdesivir is not indicated with patient not having severe COVID symptoms or findings. -05/20 she 10 days from her positive test and largely resolved respiratory symptoms, discontinued precautions. (9) COPD (chronic obstructive pulmonary disease): Status: Chronic Assessment and plan: -Continue outpatient respiratory treatment for COPD/Asthma overlap, on ICS/LABA and LAMA Qualifiers: COPD type: emphysema Emphysema type: centrilobular Qualified Code(s): J43.2 - Centrilobular emphysema (10) Hypertension: Assessment and plan: -Holding antihypertensives as above. Qualifiers: Hypertension type: primary hypertension Qualified Code(s): I10 - Essential (primary) hypertension (11) Depression: Assessment and plan: -Stable on treatment. Continue outpatient medical therapy. Qualifiers: Depression Type: persistent depressive disorder Qualified Code(s): F34.1 - Dysthymic disorder (12) Rheumatoid arthritis: Status: Chronic Assessment and plan: -Has been stable on outpatient medical therapy with methotrexate weekly. Holding for now. With pulmonary fibrosis on CT, MTX therapy may be reconsidered. Address as outpatient Qualifiers: Rheumatoid arthritis location: other site Rheumatoid factor presence: with rheumatoid factor Qualified Code(s): M05.7A - Rheumatoid arthritis with rheumatoid factor of other specified site without organ or systems involvement Subjective Subjective Patient reports: tolerating a regular diet and voiding w/o difficulty; denies diarrhea, nausea, vomiting, shortness of breath or fever Interval history since last seen: No recurrence of syncopal events. She feels okay on her feet. She has a more cough today, but this is what she has been like since she got COVID. Exam Narrative Exam Narrative: Well appearing older female laying in bed in no acute distress, AOX4, heart RRR without murmur. Lungs clear anteriorly, rales in bilateral bases posteriorly 1/4 up lung peterson with slight wheeze in this area only, abdomen soft, non-tender, non-distended. Legs without cyanosis or edema, warm, left ankle in boot. Objective Last Vital Signs Temp 36.6 C 05/21/24 09:20 Pulse 74 05/21/24 09:09 Resp 16 05/21/24 07:35 BP 96/44 L 05/21/24 09:09 Pulse Ox 93 05/21/24 07:35 Laboratory Results - last 24 hr 05/21/24 05:50 Sodium 138 Potassium 4.0 Chloride 104 Carbon Dioxide 28.1 Anion Gap 5.9 BUN 26 H Creatinine 1.4 H Est GFR (CKD-EPI 2020) 39.23 Glucose 98 Calcium 8.1 L Magnesium 1.7 L Time Spent with Patient Time Spent with Patient: 35-49 minutes Time was spent: preparing to see the patient(eg.review tests), obtaining and/or reviewing separately otained hiistory, ordering medications,tests, procedures, referring, communicating with other health healthcare network pricing consultant, indepentently interpreting results, counseling the patient and care coordination
--- NOTE | 2024-05-21 16:08 | PHA.REVIEW2 ---
Pharmacy Admission Review Admission Clinical Review Admission Pharmacy Review: Fracture of distal end of left fibula (Acute) Pulmonary fibrosis (Acute) Hypotension due to drugs (Acute) CHF (congestive heart failure) (Acute) Hypomagnesemia (Acute) Acute kidney injury (Acute) Mouth ulcers (Acute) Oral thrush (Acute) COVID (Acute) No Known Allergies Allergy (Unverified 05/18/24 16:01) Resuscitation Status Full Code Height 5 ft Weight 64.8 kg Comments Comments/Follow Ups: Watch BP, HR, SCr, mag, labs and for med changes (possible renal dose adjustments) Pharmacy Admission Review Renal Dosing Renal Dosing: BUN 26 mg/dL (7-18) H 05/21/24 05:50 Creatinine 1.4 mg/dL (0.55-1.02) H 05/21/24 05:50 Medications needing adjustments: Reviewed (Crcl ~29.2 mL/min current meds okay) Anticoagulation Anticoagulation: Hgb 10.3 g/dL (11.2-15.7) L 05/20/24 08:00 Hct 31.7 % (36.0-46.0) L 05/20/24 08:00 Plt Count 167 10^3/uL (130-400) 05/20/24 08:00 Creatinine 1.4 mg/dL (0.55-1.02) H 05/21/24 05:50 DVT Prophylaxis: Reviewed Medications: Enoxaparin Opiate Usage Evaluate Pain Scale/Pains Meds: N/A Relevant Labs Relevant Labs: Sodium 138 mmol/L (136-145) 05/21/24 05:50 Potassium 4.0 mmol/L (3.5-5.1) 05/21/24 05:50 Chloride 104 mmol/L (98-107) 05/21/24 05:50 Magnesium 1.7 mg/dL (1.8-2.4) L 05/21/24 05:50 Electrolytes, C-Reactive P, ESR: Reviewed (IV and PO mag ordered) DM Control DM Control: Glucose 98 mg/dL (74-106) 05/21/24 05:50 DM Control: N/A Cardiac Review Cardiac Review: Troponin I < 50 ng/L (< or =60) 05/18/24 20:14 NT-Pro-B Natriuret Pep 890 pg/mL (<300) H 05/18/24 17:05 NT-Pro-B Natriuret Pep Cancelled 05/18/24 17:05 BP, HR, EF%: Reviewed (BP has been low most of admission so far. HR has been up and down some this admission.) QTc Review QTc: Reviewed (QTc 428 on admission) IV to PO Switch IV Medications: Reviewed Home Meds Home Med List reviewed: Reviewed Relevent Home Meds Not ordered & why?: fluticasone/salmeterol (has budesonide/formoterol subbed for this), losartan and spironolactone (held due to hypotension per H&P) Current Meds Current Medication Order Review: Reviewed Comments Comments/Follow Ups: Watch BP, HR, SCr, mag, labs and for med changes (possible renal dose adjustments)
[2024-05-21] MEDS: Enoxaparin 30 MG/0.3 ML SYR SC (17:42)
[2024-05-21] MEDS: Atorvastatin 20 MG TAB PO (20:57)
[2024-05-22] VITALS (11 sets, daily range): BP systolic 90–108; BP diastolic 40–68; PULSE 50–84; RESP 2–18; TEMP 36.2–37; O2SAT 91–97
[2024-05-22] MEDS: Albuterol 2.5 MG/3 ML INH SOLN VIAL (04:26)
[2024-05-22] MEDS: Budesonide/Formoterol 160/4.5 6 GM 60 PUFF INH IH (07:53)
[2024-05-22] MEDS: Tiotropium Bromide-Respimat 10 PUFF INH 2 PUFF IH (07:53)
--- NOTE | 2024-05-22 08:15 | W.ORTHOCONSU ---
Date of service: 05/22/24 History of Present Illness Narrative: Ml is a 73-year-old female who was admitted to the hospital for fluid overload. She was started on diuresis program. She was brushing her teeth on the morning of May 20 when she found herself laying on the floor. She had a syncopal event which was thought to be from orthostatic hypotension and overdiuresis. She did not hit her head. However, she did have some left ankle pain. X-ray was obtained which demonstrated an oblique fracture of the left distal fibula. She reports pain primarily over the lateral side of the left ankle. She was placed into a boot. She denies any new numbness or tingling. She has history of surgery to the first MTP joint. Consults Consult date: 05/21/24 Requesting physician: Lyndon Potter Consult Reason Left distal fibula fracture Assessment and Plan Assessment and plan (1) Fracture of distal end of left fibula: Status: Acute Assessment and plan: Ml is a 73-year-old female who had a syncopal event while admitted for some fluid overload. She is doing better. She is been along with physical therapy. X-ray does show a nondisplaced distal fibula fracture which is likely stable. I recommended fracture walker boot for immobilization. She is not mobilizing she may remove the boot. She may weight-bear as tolerated with an assistive device. This likely will heal just fine some will take some time to get better all the way. I recommend repeat x-ray and office visit in about 2 weeks. All of her questions were answered. Qualifiers: Encounter type: initial encounter Fracture type: closed Fracture morphology: other fracture Qualified Code(s): S82.832A - Other fracture of upper and lower end of left fibula, initial encounter for closed fracture Review of Systems All systems reviewed & are unremarkable except as noted in HPI and below PFSH All Active Problems Fracture of distal end of left fibula (Acute) Pulmonary fibrosis (Acute) Syncope (Chronic) Hypotension due to drugs (Acute) PVC (premature ventricular contraction) (Chronic) CHF (congestive heart failure) (Acute) Hypomagnesemia (Acute) Acute kidney injury (Acute) Mouth ulcers (Acute) Oral thrush (Acute) Thrush (Acute) Pneumonia (Acute) COVID (Acute) Asthma (Chronic) Asthma-COPD overlap syndrome (Acute) Respiratory failure with hypoxia (Acute) Personal history of nicotine dependence (Acute) COPD (chronic obstructive pulmonary disease) (Chronic) Pulmonary nodules (Acute) Frequent ventricular premature beats (Acute) Chronic cough (Acute) Urinary incontinence (Acute) LPRD (laryngopharyngeal reflux disease) (Chronic) Rheumatoid arthritis (Chronic 09/20/13) Colon cancer screening (Acute) Medical History Obesity Depression Colitis Nephrolithiasis ETOH abuse Osteopenia Hyperplastic colonic polyp GERD (gastroesophageal reflux disease) Hypertension COPD (chronic obstructive pulmonary disease) Bilateral leg edema Prediabetes Multiple pulmonary nodules Lumbar back pain Osteoporosis Irregular heart beat Social History Smoking/Tobacco Use Status: Former Tobacco Use Quit Date: 07/18/07 Tobacco: How many years used: 40 Smoking risk assessment performed?: Yes Alcohol Intake: former Drug use: Never Housing: house Current gender identity: female Do you feel safe at home: Yes Do you feel safe in your relationship?: Yes Additional Social history: Tobacco use ,quit 07/24 (1/2-1ppd x 40yrs) Exam Narrative Exam Narrative: Observed walking with physical therapy. Evaluation of the left foot shows only mild swelling. There is pain over the distal fibula. No pain anteriorly or medially. She is able to actively dorsiflex and plantarflex foot without limitation. Great toe extension and flexion is intact. Sensation intact to light touch over the deep and superficial peroneal nerve and tibial nerve. Palpable DP and PT pulse. Results Last Vital Signs Temp 36.2 C L 05/22/24 03:58 Pulse 60 05/22/24 04:36 Resp 18 05/22/24 04:36 BP 103/43 L 05/22/24 03:58 Pulse Ox 97 05/22/24 04:36 Labs 05/20/24 08:00 05/22/24 09:55 Imaging Imaging Studies: X-ray of the left ankle shows a nondisplaced oblique fracture running from proximal?posterior to distal?anterior, seen best on the lateral view. There is no displacement on this view nor is or any displacement or fracture visible on the AP or mortise. No significant arthritis seen within the ankle. Plate is seen about the first MTP joint from previous bunion surgery.
[2024-05-22] MEDS: Oxybutynin 5 MG TAB PO (08:32)
[2024-05-22] MEDS: FLUoxetine 20 MG CAP 40 MG PO (08:32)
[2024-05-22] MEDS: Aspirin E.C. 81 MG TABEC PO (08:34)
[2024-05-22] MEDS: Magnesium Oxide 400 MG TAB PO (08:34)
[2024-05-22] MEDS: Nystatin 500000 UNITS/5 ML SUSP 5ML CUP PO ×2 (08:35→13:26)
[2024-05-22] MEDS: guaiFENesin 600 MG TABCR PO (08:35)
[2024-05-22] MEDS: Folic Acid 1 MG TAB PO (08:35)
[2024-05-22] MEDS: Normal Saline Flush 10 ML SYR IVP (08:36)
[2024-05-22] MEDS: Acetaminophen 325 MG TAB PO (09:47)
[2024-05-22 10:13] LABS: Anion Gap 5.8 mmol/L (3-11); BUN 22 mg/dL (7-18); CO2 29.2 mmol/L (21.0-32.0); CREATININE 1.2 mg/dL (0.55-1.02); Calcium 8.3 mg/dL (8.5-10.1); Chloride 104 mmol/L (98-107); Estimated GFR 47.21 (mL/min/1.73m2); Glucose 105 mg/dL (74-106); Magnesium 1.9 mg/dL (1.8-2.4); Potassium 4.1 mmol/L (3.5-5.1); Sodium 139 mmol/L (136-145)
--- NOTE | 2024-05-22 12:12 | IN_ITS ---
PT Notes Visit Reasons: Congestive heart failure Inpatient Physical Therapy Evaluation Date: 05/22/2024 Referring Doctor: Dr. Carlton PT Orders: PT CONSULT: safety consult for d/c Precautions: L fibular fx, WBAT with use of CAM boot Patient Profile/Admitting Diagnosis: CHF, hypotension, Acute Kidney Injury Social History/Home Situation: Lives with significant other in [place] Current Functional Limitations: Fully independent at baseline Equipment Owned/DME: No walker at home Subjective: Pt admitted on 05/18/24 with SOB and weakness following a probable Covid diagnosis. She was treated for CHF and feeling better but on 05/20/24 she fell in the bathroom which caused a left fibular fracture. She is now in a CAM boot on the left. She states she lives with her in [place]. She does have a few stairs to enter but does have a railing on both sides. She normally does not use any form of AD for ambulation. She still drives. She is fully independent with all aspects of her life. Objective: General Observation: Lying comfortable in bed Mental Status: A+Ox4 Pain: manageable ROM: AROM bilat UEs WNL Strength: grossly 4+/5 strength observed throughout bilat LEs Sensation: Full Bed Mobility/Transfers: rolling - SBA sit to supine - SBA supine to sit - SBA sit to stand - SBA stand to sit - SBA Gait: Amb 200 ft w/RW and WBAT in a boot on LLE, needed minimal cues for RW use Stairs: Able to ascend/descend 4 stairs w/bilat UE support and CGA Balance: Static Sitting: No difficulty Dynamic Sitting: No difficulty Static Standing: Need support of RW Dynamic Standing: Need support of RW Special Tests: Mobility Limitations Standardized Measure [facility] AM-PAC 6 clicks Basic Mobility Inpatient Short Form: Raw Score: 21 CMS Score: 28.97% Informed Consent/Education: Patient instructed in purpose of PT consult and plan of care. Assessment: Pt presents with gait and functional deficits secondary to her left fibular fx. She is currently doing well in her CAM boot and ambulating with a RW. She is WBAT. She was able to manage stairs today with bilat UE support which she did very well with. Her pain seems well managed. She is able to return home with the support of her significant other when medically cleared. She does not require additional PT services while she is in the hospital unless her condition regresses. Patient is assessed as a [x] Low 36680 complexity based on the following: History: Low Examination: Low Presentation: Low Decision Making: Low Goals: No goals indicated at this time as patient is now d/c'd from PT services Plan of Care/Treatment Plan: RW provided to her for home, no further PT needed DISCHARGE RECOMMENDATIONS: [x] Home with no services TREATMENT CODE/TIME: Low Eval ([id number]) x1 - 30 min Please sign an return this page within 30 days if you agree with the above POC. Thank you! Physician Signature Date [facility]
--- NOTE | 2024-05-22 15:25 | DSE_ITS ---
Date of service: 05/22/24 Time of Service: 15:25 DS: Diagnosis Discharge Diagnosis (1) Fracture of distal end of left fibula: Status: Acute (2) Pulmonary fibrosis: Status: Acute (3) Syncope: Status: Chronic (4) Hypotension due to drugs: Status: Acute (5) CHF (congestive heart failure): Status: Acute (6) Hypomagnesemia: Status: Acute (7) Acute kidney injury: Status: Acute Asessment and Plan: resolved Discharge Plan Disposition Patient Disposition: Home Condition: Good Discharge Details Reason For Visit: CHF Admit Date/Time: 05/18/24 20:16 Admit Provider: Eulogio Sandy Attending Provider: Eulogio Sandy Primary Care Provider: Mounika Mccray [facility] Course Hospital Course: 73 yo female with history of asthma/COPD overlap, rheumatoid arthritis on methotrexate, HTN, chronic leg edema, and recent COVID infection presented with dyspnea and weakness and sent to the ED from the PCPs office due to low blood pressure at the PCPs office. Evaluation in the ED noted B-lines on POCUS and ground glass on CT as well as KYA. Her blood pressure medications were held. She was treated as CHF exacerbation based on imaging above and seemed to initially respond to diuresis with furosemide. She was getting 40mg furosemide BID until 7/4 AM when she had a syncopal event while brushing her teeth. There was no abnormal rhythm on the monitor at the time of the event, no changes to her EKG, but she was found to have orthostatic hypotension. She had already had an echocardiogram 05/19 which was only significant for mild diastolic dysfunction. Furosemide was stopped and monitoring was continued. Orthostatic hypotension resolved by 05/22. She felt better and was cleared for discharge by physical therapy. Unfortanately at the time of her fall she had a left ankle injury and was diagno sed with a fracture of her left distal fibula. She was fitted with walking boot and evaluated by orthopedic surgery. She can bear weight on the boot, and remove the boot when in bed for comfort. Repeat XR and office visit with orthopedics was planned for 2 weeks from discharge. KYA with Cr 2.2 was noted on admission. She improved steadily with Cr of 1.2 on day of discharge. Her spironolactone and losartan were not restarted as her blood pressure remained in the low normal range. She has noted recent weight loss and she may need less blood pressure medication. PCP can consider restarting on follow up. Her magnesium was low and she was supplemented. she was treated for thrush, with improved Lung CT done at admission showed ground glass that was c/w fluid overload vs residual inflammation from COVID. She also had fibrotic changes that were not noted on her previous CT scan. She is on methotrexate chronically which can cause lung fibrosis. She should follow up with her pulmonology team to review these findings. she had some ongoing cough 2 weeks out from COVID, which was treated for comfort Home Meds and New Rx's Prescriptions: New benzonatate 200 mg Capsule 200 mg PO TID PRN PRN (Reason: Cough) Qty: 20 0RF guaifenesin [Mucus Relief ER] 600 mg Tablet Extended Release 12hr 600 mg PO BID Qty: 30 0RF magnesium oxide 400 mg (241.3 mg magnesium) Tablet 400 mg PO DAILY Qty: 90 0RF Continued fluoxetine 40 mg capsule 40 mg PO DAILY omeprazole 40 mg capsule,delayed release(DR/EC) 40 mg PO DAILY Rx Instructions: May take a second if needed fluticasone propion-salmeterol [Advair HFA] 230-21 mcg/actuation HFA aerosol inhaler 2 puff inhalation BID Qty: 12 8RF albuterol sulfate [ProAir HFA] 8.5 GM HFA aerosol inhaler 1 - 2 puff Inhalation Q4H PRN Methotrexate (Anti-Rheumatic) 2.5 mg tablets,dose pack 2.5 mg PO . Q WEEK Patient Comments: 4 tabs every week, per PCP record Spiriva Respimat 2.5 mcg/actuation mist 2 puff inhalation DAILY Qty: 1 5RF (DME) Oxygen Tank See Rx Instructions .Route Qty: 1 0RF Rx Instructions: 3Lpm via NC/mask at night atorvastatin 20 mg tablet 20 mg PO DAILY folic acid 1 mg tablet 1 mg PO DAILY Patient Comments: Folic Acid is to go in conjunction with Methotrexate that I take once a week. aspirin [Aspir-81] 81 mg Tablet,Delayed Release (Dr/Ec) 81 mg PO DAILY oxybutynin chloride 5 mg Tablet 5 mg PO BID PRN Discontinued spironolactone 25 mg tablet 25 mg PO DAILY losartan 50 mg tablet 50 mg PO DAILY Discharge Instructions Instructions: Heart Failure, Adult (DC) Additional Instructions: You should NOT take the losartan or spironolactone. Remove these from your pill environmental planner. Monitor your blood pressure and follow up with your PCP. You should wear the boot when you are on your feet. You should make an appointment with Dr. Carlton's office ([facility]) in 2 weeks for the ankle. You should follow up for your lung issues with Michelle Bray. You should resume the methotrexate and other mediations for now. You were running low on magnesium and a supplement was prescribed. You were also prescribed cough suppressants. These all may be cheaper over the counter. Referrals: Michelle Bray PA [[employer] [facility]] - (follow up COPD/asthma, COVID, new fibrosis on CT) Mohamud Carlton MD [[facility] STAFF PHYSICIAN] - (2 week follow up for distal fibular fracture with repeat XR) Activity:: Activity as Tolerated Equipment/Supplies:: walking boot left ankle Diet:: As Tolerated Discharge Orders Discharge Orders: Discharge Order (Routine); Ordered 05/22/24 Ordered By: Lyndon Potter DS: Summary Time Spent with Patient providing and/or coordinating discharge services: Greater than 30 minutes Status at Discharge Functional status at discharge: independent ambulation (with boot) Overall status at discharge: patient is progressing back to baseline Mental Status: mental status grossly normal Speech and Movement: speech and movement normal Mood: congruent mood Affect: normal affect Quality:SDOH Health Related Social Needs: No Data to Display Exam Narrative Exam Narrative: Well appearing older female laying in bed in no acute distress, AOX4, heart RRR without murmur. Lungs clear anteriorly, rales in bilateral bases posteriorly 1/4 up lung peterson with slight wheeze in this area only, abdomen soft, non- tender, non-distended. Legs without cyanosis or edema, warm, left ankle in boot. Psych Mental Status: mental status grossly normal Speech and Movement: speech and movement normal Mood: congruent mood Affect: normal affect DS: Data Vitals/I&O Vitals and I&O: Vital Signs Temperature 37 C 05/22/24 07:45 Temperature Source Temporal Artery Scan 05/22/24 07:45 Pulse 83 05/22/24 11:03 Pulse Rhythm Regular 05/22/24 08:30 Pulse 71 05/18/24 21:31 Respiratory Rate 16 05/22/24 07:45 Respiratory Effort Normal 05/22/24 08:30 Respiratory Depth Normal 05/22/24 08:30 Respiratory Pattern Normal 05/22/24 08:30 Blood Pressure 100/68 05/22/24 11:03 Blood Pressure Mean 98 05/18/24 21:30 Pulse Oximetry 97 05/22/24 07:45 Oxygen Delivery Method Room Air 05/22/24 11:00 Oxygen Flow Rate 0 05/22/24 11:00 Pain Level 2 05/22/24 09:47 Comment standing 05/22/24 11:03 Intake & Output 05/21/24 05/22/24 05/22/24 23:59 11:59 23:59 Intake Total 880 / 1080 Output Total 150 / 150 300 / 300 Balance 730 / 930 -300 / -300 Weight 64.1 kg Intake: IV 400 / 400 Oral 480 / 680 Output: Urine 150 / 150 300 / 300 Other: Urine Color Yellow Yellow Urine Appearance Clear Cloudy Urine Odor Normal Normal Comment Pt LIGHTLY INCONTINENT IN BRIEF Voiding Methods Bedside Commode Diaper Diaper Incontinent Incontinent Data Completed and Pending Labs on day of discharge: Labs from last 24 hours 05/22/24 09:55 Sodium 139 Potassium 4.1 Chloride 104 Carbon Dioxide 29.2 Anion Gap 5.8 BUN 22 H Creatinine 1.2 H Est GFR (CKD-EPI 2020) 47.21 Glucose 105 Calcium 8.3 L Magnesium 1.9 Preliminary micro results at discharge 05/18/24 17:05 Blood Culture - Preliminary Blood NO GROWTH 72 HOURS 05/18/24 17:05 Blood Culture - Preliminary Blood NO GROWTH 72 HOURS PFS All Active Problems Fracture of distal end of left fibula (Acute) Pulmonary fibrosis (Acute) Syncope (Chronic) Hypotension due to drugs (Acute) PVC (premature ventricular contraction) (Chronic) CHF (congestive heart failure) (Acute) Hypomagnesemia (Acute) Acute kidney injury (Acute) Mouth ulcers (Acute) Oral thrush (Acute) Thrush (Acute) Pneumonia (Acute) COVID (Acute) Asthma (Chronic) Asthma-COPD overlap syndrome (Acute) Respiratory failure with hypoxia (Acute) Personal history of nicotine dependence (Acute) COPD (chronic obstructive pulmonary disease) (Chronic) Pulmonary nodules (Acute) Frequent ventricular premature beats (Acute) Chronic cough (Acute) Urinary incontinence (Acute) LPRD (laryngopharyngeal reflux disease) (Chronic) Rheumatoid arthritis (Chronic 09/20/13) Colon cancer screening (Acute) Medical History Obesity Depression Colitis Nephrolithiasis ETOH abuse Osteopenia Hyperplastic colonic polyp GERD (gastroesophageal reflux disease) Hypertension COPD (chronic obstructive pulmonary disease) Bilateral leg edema Prediabetes Multiple pulmonary nodules Lumbar back pain Osteoporosis Irregular heart beat Social History Smoking/Tobacco Use Status: Former Tobacco Use Quit Date: 07/18/07 Tobacco: How many years used: 40 Smoking risk assessment performed?: Yes Alcohol Intake: former Drug use: Never Housing: house Current gender identity: female Do you feel safe at home: Yes Do you feel safe in your relationship?: Yes Additional Social history: Tobacco use ,quit 07/24 (1/2-1ppd x 40yrs) Time Spent with Patient Time Spent with Patient: <45 minutes Time was spent: preparing to see the patient(eg.review tests), obtaining and/or reviewing separately otained hiistory, ordering medications,tests, procedures, referring, communicating with other health director of home care hospice, indepentently interpreting results, counseling the patient and care coordination
--- NOTE | 2024-05-22 18:13 | PDOC.CMDIS ---
Date of service: 05/22/24 Time of Service: 18:13 LACE Index Scoring Tool Questions: Length of Stay (in days): 4 - 6 Was the patient admitted via the E.D.?: Yes Comorbidities: Congestive Heart Failure and Chronic Pulmonary Disease E.D. Visits: 1 Answers: Total Score: 13 Risk of Readmission: High Risk Care Management Discharge Plan Reason for Hospitalization: CHF Discharge Plan: Ml returned home today with no new services. She was transported home via private vehicle by family. She will follow up with her PCP, Ortho, and her discharge plan of care. She is happy to be going home. Patient/Family Education Needs: Review discharge instructions and limitations, discussion of self care needs including ask me three. SDOH Health Related Social Needs: No Data to Display
== END 2024-05-22 18:08 | disposition home or self-care (01) | DRG 291 ==
LOC: ER 19:42 → MS 21:47
PROVIDERS: Family Medicine; Admitting Provider Family Medicine; Emergency Provider Emergency Medicine; PCP Family Medicine; Visit Provider Family Medicine
DX: I11.0 Hypertensive heart disease with heart failure (principal); I50.33 Acute on chronic diastolic (congestive) heart failure; U07.1 COVID-19; N17.9 Acute kidney failure, unspecified; B37.0 Candidal stomatitis; I95.2 Hypotension due to drugs; E83.42 Hypomagnesemia; J43.2 Centrilobular emphysema; I49.3 Ventricular premature depolarization; F34.1 Dysthymic disorder; M05.7A Rheumatoid arthritis with rheumatoid factor of other specified site without organ or systems involvement; J84.10 Pulmonary fibrosis, unspecified; R53.1 Weakness; R06.00 Dyspnea, unspecified; Z87.891 Personal history of nicotine dependence; R91.8 Other nonspecific abnormal finding of lung field; R05.3 Chronic cough; R32 Unspecified urinary incontinence; K21.9 Gastro-esophageal reflux disease without esophagitis; F10.11 Alcohol abuse, in remission; M54.50 Low back pain, unspecified; E66.9 Obesity, unspecified; S82.65XA Nondisplaced fracture of lateral malleolus of left fibula, initial encounter for closed fracture; W19.XXXA Unspecified fall, initial encounter; R55 Syncope and collapse; Z79.631 Long term (current) use of antimetabolite agent
CPT/HCPCS: 00123; 36415; 71250; 80048; 80053; 82805; 84145; 85027; 87040; 93005; 93308; 94640; 96365; 96368; 96372; 97161; 99222; 99285; 71045; 73610; 81003; 81015; 82565; 83605; 83735; 83880; 84156; 84484; 85025; 85379; 93010; 93306; 94664; 94760; 99223; 99232; 99233; 99238; J0692; J1650; J1940; J1941; J3372; J3475; J7613

== ENCOUNTER 2024-05-18 17:28 | Outpatient (CLI) | payer MEDICARE, SELFPAY ==
[2024-05-18 14:36] LABS: BE (Venous) -2 mmol/L (-2-3); HCO3 (Venous) 24 mmol/L (23-28); O2 Sat (Venous) 39 %; TCO2 (Venous) 22 mmol/L (24-29); pCO2 (Venous) 45 mmHg (41-51); pH (Venous) 7.33 (7.31-7.41); pO2 (Venous) 25 mmHg
[2024-05-18 14:37] LABS: Abs Immature Grans 0.04 10^3/uL (0.0-0.06); Absolute Eosinophil Count 0.14 10^3/uL (0.0-0.7); Absolute Lymphocyte Count 0.92 10^3/uL (1.2-3.4); Absolute Monocyte Count 0.23 10^3/uL (0.1-0.8); Absolute Neutrophil Count 2.44 10^3/uL (1.2-6.7); Eosinophils % 3.7 %; HCT 34.1 % (36.0-46.0); HGB 10.9 g/dL (11.2-15.7); Immature Grans % 1.1 %; Lymphocytes % 24.4 %; MCH 31.6 pg (27.0-33.0); MCV 99 fL (80-95); MPV 9.8 fL (8.0-11.0); Monocytes % 6.1 %; Neutrophils % 64.7 %; Platelet Count 230 10^3/uL (130-400); RBC 3.45 10^6/uL (3.93-5.22); RDW 14.4 % (11.7-14.6); RDW-SD 51.4 fL; WBC 3.77 10^3/uL (4.4-10.8)
[2024-05-18 14:45] LABS: Lactate 2.5 mmol/L (0.6-1.4)
[2024-05-18 15:11] LABS: ALT 23 U/L (14-59); AST 20 U/L (15-37); Albumin 2.6 g/dL (3.4-5.0); Alkaline Phosphatase 71 U/L (46-116); Anion Gap 11.4 mmol/L (3-11); BUN 32 mg/dL (7-18); CO2 24.6 mmol/L (21.0-32.0); CREATININE 2.2 mg/dL (0.55-1.02); Calcium 9.1 mg/dL (8.5-10.1); Chloride 105 mmol/L (98-107); Estimated GFR 22.81 (mL/min/1.73m2); Glucose 116 mg/dL (74-106); Magnesium 1.7 mg/dL (1.8-2.4); Potassium 3.7 mmol/L (3.5-5.1); Sodium 141 mmol/L (136-145); Total Protein 6.2 g/dL (6.4-8.2)
[2024-05-18 15:12] LABS: Procalcitonin < 0.1 ng/mL
== END 2024-05-18 17:29 | disposition home or self-care (01) ==
LOC: LBO 17:29
PROVIDERS: PCP Family Medicine; Visit Provider Physician Assistant Surgical
DX: J18.9 Pneumonia, unspecified organism (principal); U07.1 COVID-19; J96.91 Respiratory failure, unspecified with hypoxia
CPT/HCPCS: 36415; 80053; 82805; 84145; 83605; 83735; 85025

== ENCOUNTER → 2024-05-18 17:33 | Outpatient (CLI) | payer MEDICARE, SELFPAY ==
--- NOTE | 2024-05-18 14:41 | DI.RAD_ITS ---
Exam(s) XR CHEST 2V PA LATERAL EXAM: XR CHEST 2V PA LATERAL CLINICAL HISTORY: follow up pneumonia, J18.9. TECHNIQUE: 2D digital imaging was performed. COMPARISON: CT CT CHEST LUNG CANCER SCREEN from 12/10/2021 CR XR CHEST 2V PA LATERAL from 05/10/2024 FINDINGS: 2 views: Heart size is normal. The mediastinum is not widened. Bilateral hyperinflation is again noted. Right lung is presently clear. There are increased marking s in left lower lobe retrocardiac region which are probably vascular. Less likely confluent infiltra te. There are no pleural effusions. IMPRESSION: Mild increased left lower lobe markings which are probably vascular and appear unchanged from previou s. No pleural effusions. No pulmonary edema. DATA REPOSITORY: RADIATION DOSE DELIVERED:
== END ==
PROVIDERS: PCP Family Medicine; Visit Provider Physician Assistant Surgical
DX: J18.9 Pneumonia, unspecified organism (principal)
CPT/HCPCS: 71046

== ENCOUNTER 2024-05-26 14:21 | Outpatient (REF) | payer MEDICARE, SELFPAY ==
[2024-05-26 18:09] LABS: Iron 56 ug/dL (50-170); Total Iron Binding Capacity 230 ug/dL (250-450); Transferrin Sat 24 % (15-50)
[2024-05-26 18:46] LABS: Anion Gap 4.9 mmol/L (3-11); BUN 15 mg/dL (7-18); CO2 31.1 mmol/L (21.0-32.0); CREATININE 1.2 mg/dL (0.55-1.02); Calcium 8.8 mg/dL (8.5-10.1); Chloride 108 mmol/L (98-107); Estimated GFR 47.21 (mL/min/1.73m2); Ferritin 385 ng/mL (8-252); Glucose 92 mg/dL (74-106); Magnesium 1.9 mg/dL (1.8-2.4); Potassium 4.7 mmol/L (3.5-5.1); Sodium 144 mmol/L (136-145); TSH (W/Ref FT4) 1.64 uIU/mL (0.36-3.74); Vitamin B12 534 pg/mL (193-986)
[2024-05-26 18:49] LABS: Folate > 20.0 ng/mL (8.6-20.0)
== END 2024-05-26 14:22 | disposition home or self-care (01) ==
LOC: NCHCN 14:21
PROVIDERS: PCP Family Medicine; Visit Provider Student in an Organized Health Care Education/Training Program
DX: D64.9 Anemia, unspecified (principal); E88.42 MERRF syndrome
CPT/HCPCS: 80048; 82607; 82728; 82746; 83540; 83550; 83735; 84443

== ENCOUNTER 2024-06-01 12:47 | Outpatient (REF) | payer MEDICARE, SELFPAY | END 2024-06-01 12:48 | disposition home or self-care (01) | LOC: LBN 12:47 | PROVIDERS: PCP Family Medicine; Visit Provider Nurse Practitioner Family | DX: L98.9 Disorder of the skin and subcutaneous tissue, unspecified (principal) | CPT/HCPCS: 87070; 87205 ==

== ENCOUNTER → 2024-06-01 12:51 | Outpatient (CLI) | payer MEDICARE, SELFPAY ==
--- NOTE | 2024-06-01 13:50 | DI.US_ITS ---
Exam(s) US LOWER EXTREMITY VENOUS LT EXAM: US LOWER EXTREMITY VENOUS LT CLINICAL HISTORY: evaluate DVT,LOCALIZED LOWER EXT EDEMA, R60.0 TECHNIQUE: Grayscale, color, and doppler imaging of the deep venous system of the left lower extremi ty was performed. COMPARISON: US US ECHOCARDIOGRAM from 05/19/2024 FINDINGS: There is no evidence of intraluminal thrombus and there is normal compression and augmentation demons trated within the common femoral vein, femoral vein, and popliteal vein. In the ipsilateral calf the interrogated veins also exhibit normal compression/ augmentation properti es. The ipsilateral saphenofemoral junction is patent. IMPRESSION: 1. No evidence of DVT in the left lower extremity. DATA REPOSITORY:
== END ==
PROVIDERS: PCP Family Medicine; Visit Provider Nurse Practitioner Family
DX: R60.0 Localized edema (principal)
CPT/HCPCS: 93971

== ENCOUNTER 2024-06-03 13:32 | Outpatient (CLI) | payer MEDICARE, SELFPAY ==
--- NOTE | 2024-06-03 08:24 | DI.RAD_ITS ---
Exam(s) XR ANKLE LT COMPLETE EXAM: XR ANKLE LT COMPLETE CLINICAL HISTORY: F/U FRACTURE. TECHNIQUE: 2D digital imaging was performed. COMPARISON: CR,XR XR ANKLE LT COMPLETE from 05/20/2024 FINDINGS: 3 views Again noted is a previously described subtle nondisplaced oblique fracture the distal fibula at this syndesmosis level. There is no widening the ankle mortise. Talar dome unremarkable. Fusion plate i n the great toe metatarsophalangeal joint region again noted IMPRESSION: Nondisplaced subtle oblique fracture distal fibula again noted. DATA REPOSITORY: RADIATION DOSE DELIVERED:
== END 2024-06-03 13:33 | disposition home or self-care (01) ==
LOC: DIORS 13:32
PROVIDERS: PCP Family Medicine; Referring Provider Family Medicine
DX: S82.832D Other fracture of upper and lower end of left fibula, subsequent encounter for closed fracture with routine healing; X58.XXXD Exposure to other specified factors, subsequent encounter
CPT/HCPCS: 99213; 73610

== ENCOUNTER → 2024-06-07 08:46 | Outpatient (BNVA) | payer MEDICARE, SELFPAY | PROVIDERS: PCP Family Medicine; Referring Provider Family Medicine; Visit Provider Internal Medicine Critical Care Medicine | DX: J43.2 Centrilobular emphysema (principal); R91.8 Other nonspecific abnormal finding of lung field; J84.10 Pulmonary fibrosis, unspecified | CPT/HCPCS: 99215 ==

== ENCOUNTER 2024-06-17 13:29 | Observation (INO) | payer MEDICARE, SELFPAY ==
[2024-06-17] VITALS (53 sets, daily range): BP systolic 107–134; BP diastolic 30–90; PULSE 64–95; RESP 12–21; TEMP 36.4–36.6; O2SAT 87–97
--- NOTE | 2024-06-17 15:15 | RT.EKG_ITS ---
APPROVED REPORT Exam: Resting ECG Reason for Exam: Aspiration Patient Location: E HR:72 bpm ECG Measurements Heart Rate 72 AXIS WV 115 P 67 QRSd 79 QRS 65 QT 376 T 65 QTc 412 Conclusion Sinus rhythm...normal P axis, V-rate 60- 99 Ventricular trigeminy...trigeminy string>6 w/ V complexes Abnrm T, consider ischemia, anterolateral lds...T <-0.20mV, I aVL V2-V6
--- NOTE | 2024-06-17 15:52 | W.ED.GENAD ---
Discharge Plan Discharge Details Chief Complaint: RespSymp Reason For Visit: sent by pulmuntary Admit Date/Time: 06/17/24 22:59 Primary Care Provider: Mounika Mccray ED Provider: Danielle Marsh Home Meds and New Rx's Prescriptions: No Action fluoxetine 40 mg capsule 40 mg PO DAILY omeprazole 40 mg capsule,delayed release(DR/EC) 40 mg PO DAILY Rx Instructions: May take a second if needed fluticasone propion-salmeterol [Advair HFA] 230-21 mcg/actuation HFA aerosol inhaler 2 puff inhalation BID Qty: 12 8RF alendronate 70 mg tablet 70 mg PO QWEEK albuterol sulfate [ProAir HFA] 8.5 GM HFA aerosol inhaler 1 - 2 puff Inhalation Q4H PRN Methotrexate (Anti-Rheumatic) 2.5 mg tablets,dose pack 2.5 mg PO . Q WEEK Patient Comments: 4 tabs every week, per PCP record Spiriva Respimat 2.5 mcg/actuation mist 2 puff inhalation DAILY Qty: 1 5RF atorvastatin 20 mg tablet 20 mg PO DAILY folic acid 1 mg tablet 1 mg PO DAILY Patient Comments: Folic Acid is to go in conjunction with Methotrexate that I take once a week. benzonatate 200 mg Capsule 200 mg PO TID PRN PRN (Reason: Cough) Qty: 20 0RF guaifenesin [Mucus Relief ER] 600 mg Tablet Extended Release 12hr 600 mg PO BID Qty: 30 0RF magnesium oxide 400 mg (241.3 mg magnesium) Tablet 400 mg PO DAILY Qty: 90 0RF aspirin [Aspir-81] 81 mg Tablet,Delayed Release (Dr/Ec) 81 mg PO DAILY oxybutynin chloride 5 mg Tablet 5 mg PO BID PRN HPI General Date/Time Provider Initiated Documentation: 06/17/24 13:37. HPI Narrative: Ml is a 73-year-old female with history of asthma/COPD, pulmonary fibrosis, CHF, and rheumatoid arthritis who presents to the emergency department today for evaluation of hemoptysis with increasing cough/sputum production. She reports that 7 days ago she swallowed a tablet of her Prozac, says she felt to get stuck in her throat before finally breaking apart or something. She is concerned it may have been aspirated. She has had a hoarse voice, occasional chills, and cough for the last 2 days since this happened. She denies fever, dizziness, congestion, chest pain, shortness of breath, nausea/vomiting, change in p.o. intake, difficulty swallowing, abdominal pain, change in bowel or bladder function, blood in stools, increasing swelling to her lower extremities. She denies history of blood clots, hormone use, known active malignancy. She did recently break her distal fibula while hospitalized in April for COVID, has been wearing an ortho boot since then and less active than usual. She does take her inhalers as prescribed, has not had any increased wheezing above baseline. Physical exam reassuring. Patient does have hoarse voice, moist mucous membranes, normal oropharynx, full painless range of motion to neck, no lymphadenopathy. Easy work of breathing, coarse rhonchi in all lung peterson, occasional end expiratory wheezes. Normal heart sounds. Abdomen is soft, nondistended, nontender to palpation. No obvious asymmetry: Calf swelling/warmth/redness. +CMS to toes. DDx includes but is not limited to: Pneumonia, pulmonary embolism, malignancy, upper respiratory bleeding, COPD exacerbation, clotting dysfunction, viral bronchitis Discussed case with Dr Eagle, [employer] dispatcher, who came to the ED to evaluate patient. If PE study is negative, bronchoscopy is indicated (this will require transfer as it is not available at [facility] over the weekend). Pt advised that transfer is likely; she is agreeable with plan of care. I independently interpreted the following tests: EKG shows normal sinus rhythm, rate 72 with ventricular bigeminy. No changes consistent with acute ischemia. Relatively unchanged from previous on 05/20/2024 (ventricular trigeminy at that time). CBC notable for mild anemia new since 05/20/24 (8.7, 28.1). Ddimer very elevated, 1425. Reassuring CMP, coags, UA, and COVID/flu/RSV 20:45- Discussed case with Dr Chisholm, [employer] dispatcher at [facility]. Pt to be transferred for bronchoscopy/pulmonary evaluation. Recommends azithromycin, ceftrixone, and prednisone. Presented case to Dr Sandy, [facility] hospitalist. Pt to be admitted for observation until transfer to [facility] in the morning. Related Data Home Medications ?Medication ?Instructions ?Recorded ?Confirmed albuterol sulfate 90 mcg/actuation 1 - 2 puff inhalation Q4H PRN 09/20/13 06/17/24 aerosol inhaler (ProAir HFA) aspirin 81 mg tablet,delayed 81 mg PO DAILY 05/17/19 06/17/24 release (Aspir-) oxybutynin chloride 5 mg tablet 5 mg PO BID PRN 05/17/19 06/17/24 fluoxetine 40 mg capsule 40 mg PO DAILY 11/26/21 06/17/24 methotrexate sodium 2.5 mg tablets 2.5 mg PO . Q WEEK 11/26/21 06/17/24 in a dose pack (Methotrexate (Anti-Rheumatic)) omeprazole 40 mg capsule,delayed 40 mg PO DAILY 11/26/21 06/17/24 release tiotropium bromide 2.5 2 puff inhalation DAILY #1 inh 12/14/21 06/17/24 mcg/actuation mist for inhalation (Spiriva Respimat) fluticasone propionate 230 2 puff inhalation BID #12 grams 09/30/23 06/17/24 mcg-salmeterol 21 mcg/actuation HFA inhaler (Advair HFA) atorvastatin 20 mg tablet 20 mg PO DAILY high cholesterol 05/18/24 06/17/24 folic acid 1 mg tablet 1 mg PO DAILY I take Methotrexate 05/18/24 06/17/24 benzonatate 200 mg capsule 200 mg PO TID PRN PRN Cough #20 05/22/24 06/17/24 caps guaifenesin 600 mg tablet, 600 mg PO BID #30 tabs 05/22/24 06/17/24 extended release 12 hr (Mucus Relief ER) magnesium oxide 400 mg (241.3 mg 400 mg PO DAILY #90 tabs 05/22/24 06/17/24 magnesium) tablet alendronate 70 mg tablet 70 mg PO QWEEK 06/07/24 06/17/24 Previous Rx's ?Medication ?Instructions ?Recorded tiotropium bromide 2.5 2 puff inhalation DAILY #1 inh 12/14/21 mcg/actuation mist for inhalation (Spiriva Respimat) fluticasone propionate 230 2 puff inhalation BID #12 grams 09/30/23 mcg-salmeterol 21 mcg/actuation HFA inhaler (Advair HFA) benzonatate 200 mg capsule 200 mg PO TID PRN PRN Cough #20 05/22/24 caps guaifenesin 600 mg tablet, 600 mg PO BID #30 tabs 05/22/24 extended release 12 hr (Mucus Relief ER) magnesium oxide 400 mg (241.3 mg 400 mg PO DAILY #90 tabs 05/22/24 magnesium) tablet Allergies Allergy/AdvReac Type Severity Reaction Status Date / Time No Known Allergies Allergy Unverified 06/17/24 13:34 General Stated Complaint: RespSymp LAURA: 3 Review of Systems Narrative: see HPI Exam Const General: cooperative, healthy appearing and comfortable HENMT Head: normal to inspection Ears: hearing grossly normal bilaterally General nose exam: external nose normal Face and sinus: normal facial exam Mouth: oral mucosae normal Throat: posterior oropharynx normal Neck Neck: normal visual inspection Resp Effort & Inspection: normal respiratory effort and able to speak in complete sentences Auscultation: rhonchi (course scattered rhonchi) Cardio Jugular venous pressure: no JVD Rate: regular rate Rhythm: regular rhythm GI Inspection: normal to inspection and non-distended Palpation: not soft, not firm and nontender Skin General skin exam: no rashes or lesions noted Course Vital Signs Vital signs: Vital Signs Temperature 36.6 C 06/17/24 13:36 Pulse 87 06/17/24 13:36 Respiratory Rate 16 06/17/24 13:36 Blood Pressure 115/47 L 06/17/24 13:36 Pulse Oximetry 91 L 06/17/24 13:36 Temperature 36.6 C 06/17/24 13:36 Temperature Source Temporal Artery Scan 06/17/24 13:36 Pulse 87 06/17/24 13:36 Respiratory Rate 18 06/17/24 15:17 Respiratory Effort Short of Breath 06/17/24 15:17 Respiratory Depth Normal 06/17/24 15:17 Respiratory Pattern Normal 06/17/24 15:17 Blood Pressure 115/47 L 06/17/24 13:36 Blood Pressure Position Sitting 06/17/24 13:36 Pulse Oximetry 88 L 06/17/24 15:17 Oxygen Delivery Method Room Air 06/17/24 15:17 Oxygen Flow Rate 0 06/17/24 15:17 Pain Level 5 06/17/24 13:36 Medical Decision Making Quality:SDOH Health Related Social Needs: No Data to Display PFSH All Active Problems (Updated 06/17/24 @ 22:58 by Eulogio Sandy) Acute hypernatremia (Acute) Foreign body aspiration (Acute) Hemoptysis (Acute) Ground glass opacity present on imaging of lung (Acute) Fracture of distal end of left fibula (Acute 05/20/24) Pulmonary fibrosis (Acute) Syncope (Chronic) Hypotension due to drugs (Acute) PVC (premature ventricular contraction) (Chronic) CHF (congestive heart failure) (Acute) Thrush (Acute) Pneumonia (Acute) Asthma (Chronic) Asthma-COPD overlap syndrome (Acute) Respiratory failure with hypoxia (Acute) Personal history of nicotine dependence (Acute) COPD (chronic obstructive pulmonary disease) (Chronic) Pulmonary nodules (Acute) Frequent ventricular premature beats (Acute) Chronic cough (Acute) Urinary incontinence (Acute) LPRD (laryngopharyngeal reflux disease) (Chronic) Rheumatoid arthritis (Chronic 09/20/13) Colon cancer screening (Acute) Medical History Obesity Depression Colitis Nephrolithiasis ETOH abuse Osteopenia Hyperplastic colonic polyp GERD (gastroesophageal reflux disease) Hypertension COPD (chronic obstructive pulmonary disease) Bilateral leg edema Prediabetes Multiple pulmonary nodules Lumbar back pain Osteoporosis Irregular heart beat Social History Smoking/Tobacco Use Status: Former Tobacco Use Quit Date: 07/18/07 Tobacco: How many years used: 40 Smoking risk assessment performed?: Yes Alcohol Intake: former Drug use: Never Housing: house Current gender identity: female Do you feel safe at home: Yes Do you feel safe in your relationship?: Yes Additional Social history: Tobacco use ,quit 07/24 (1/2-1ppd x 40yrs)
[2024-06-17 16:18] LABS: Abs Immature Grans 0.05 10^3/uL (0.0-0.06); Absolute Basophil Count 0.05 10^3/uL (0.0-0.2); Absolute Eosinophil Count 1.09 10^3/uL (0.0-0.7); Absolute Monocyte Count 0.61 10^3/uL (0.1-0.8); Absolute Neutrophil Count 3.98 10^3/uL (1.2-6.7); Basophils % 0.6 %; Eosinophils % 13.8 %; HCT 28.1 % (36.0-46.0); HGB 8.7 g/dL (11.2-15.7); Immature Grans % 0.6 %; Lymphocytes % 26.6 %; MCH 31.3 pg (27.0-33.0); MCV 101 fL (80-95); MPV 9.6 fL (8.0-11.0); Monocytes % 7.7 %; Neutrophils % 50.7 %; Platelet Count 247 10^3/uL (130-400); RBC 2.78 10^6/uL (3.93-5.22); RDW 15.1 % (11.7-14.6); RDW-SD 53.8 fL; WBC 7.88 10^3/uL (4.4-10.8)
[2024-06-17 16:31] LABS: INR 1.1 (0.9-1.1); PTT Activated 22.4 sec (23.6-32.8)
[2024-06-17 16:36] LABS: ALT 18 U/L (14-59); AST 20 U/L (15-37); Albumin 2.5 g/dL (3.4-5.0); Alkaline Phosphatase 89 U/L (46-116); Anion Gap 6.9 mmol/L (3-11); BUN 14 mg/dL (7-18); Bilirubin, Total 0.48 mg/dL (0.2-1.0); CO2 32.1 mmol/L (21.0-32.0); CREATININE 1.4 mg/dL (0.55-1.02); Calcium 8.5 mg/dL (8.5-10.1); Chloride 107 mmol/L (98-107); Estimated GFR 39.23 (mL/min/1.73m2); Glucose 84 mg/dL (74-106); Potassium 4.2 mmol/L (3.5-5.1); Sodium 146 mmol/L (136-145); Total Protein 6.1 g/dL (6.4-8.2)
--- NOTE | 2024-06-17 16:36 | PUCON_ITS ---
General Date Of Service Date of service: 06/17/24 Time of Service: 16:30 Reason for Consult: Hemoptysis, Pill Aspiration Recommendations: 73yo female w/hx/o Asthma/COPD overlap syndrome, RA on Methotrexate, bibasilar fibrosis, chronic hypoxemic respiratory Failure presenting w/ 1 week hx/o chest congestion, hoarseness, and 2 days of hemoptysis after presumably aspirating a fluoxetine capsule. As discussed earlier in the phone this am, she needs further work up w/ bronchoscopy for airway inspection and unfortunately this institution does not have Pulmonary coverage over the next several days to be able to perform this. She needs to be transferred to a center capable of carrying this plan. For the time being obtain CT Chest (ok for PE protocol but doubt that is cause of hemoptsysis) Will need antibiotics coverage and steroids. Assessment and Plan Assessment and plan (1) Hemoptysis: Status: Acute (2) Foreign body aspiration: Status: Acute Qualifiers: Encounter type: initial encounter Qualified Code(s): T17.908A - Unspecified foreign body in respiratory tract, part unspecified causing other injury, initial encounter (3) Asthma-COPD overlap syndrome: Status: Acute (4) Respiratory failure with hypoxia: Status: Acute Qualifiers: Chronicity: acute on chronic Qualified Code(s): J96.21 - Acute and chronic respiratory failure with hypoxia (5) Pulmonary fibrosis: Status: Acute History of Present Illness Narrative: Ml is a 73yo female w/ hx/o Asthma-COPD overlap syndrome, IPP980% (2021), RA on Methotrexate, chronic hypoxemic respiratory Failure w/3L on exertion and QHS, bibasilar opacities c/w mild fibrosis on Spiriva and Advair presents to ED w/ hemoptysis of 2 days duration. She called our office this morning reporting she choked on a fluoxetine capsule about a week ago and since then she devolopped hoarseness, chest congestion followed by hemoptysis for about 2 days. Over the phone our office explained to her due to lack of weekend coverage she had to present to [facility] to be evaluated for airway inspection butr she decided to come to [facility] ED anyway. In the Ed she was found to have mild hypoxemia 88-89% on RA. No labs/films yet obtained. She also was seen at Urgent care end of April for COVID infection. No paxlovid given. Then seen by PCP early April DDimer still elevated, Lower ext Doppler obtained.Mild leukopenia observed but improving. Due to low BP Anti hypertensives and diuretics held. Plan was for restart diuretics. Review of Systems All systems reviewed & are unremarkable except as noted in HPI and below PFSH All Active Problems (Updated 06/17/24 @ 16:56 by Isha Eagle MD) Foreign body aspiration (Acute) Hemoptysis (Acute) Ground glass opacity present on imaging of lung (Acute) Fracture of distal end of left fibula (Acute 05/20/24) Pulmonary fibrosis (Acute) Syncope (Chronic) Hypotension due to drugs (Acute) PVC (premature ventricular contraction) (Chronic) CHF (congestive heart failure) (Acute) Thrush (Acute) Pneumonia (Acute) Asthma (Chronic) Asthma-COPD overlap syndrome (Acute) Respiratory failure with hypoxia (Acute) Personal history of nicotine dependence (Acute) COPD (chronic obstructive pulmonary disease) (Chronic) Pulmonary nodules (Acute) Frequent ventricular premature beats (Acute) Chronic cough (Acute) Urinary incontinence (Acute) LPRD (laryngopharyngeal reflux disease) (Chronic) Rheumatoid arthritis (Chronic 09/20/13) Colon cancer screening (Acute) Medical History Obesity Depression Colitis Nephrolithiasis ETOH abuse Osteopenia Hyperplastic colonic polyp GERD (gastroesophageal reflux disease) Hypertension COPD (chronic obstructive pulmonary disease) Bilateral leg edema Prediabetes Multiple pulmonary nodules Lumbar back pain Osteoporosis Irregular heart beat Social History Smoking/Tobacco Use Status: Former Tobacco Use Quit Date: 07/18/07 Tobacco: How many years used: 40 Smoking risk assessment performed?: Yes Alcohol Intake: former Drug use: Never Housing: house Current gender identity: female Do you feel safe at home: Yes Do you feel safe in your relationship?: Yes Additional Social history: Tobacco use ,quit 07/24 (1/2-1ppd x 40yrs) Visit Medication and Allergies Allergies No Known Allergies Allergy (Unverified 06/17/24 13:34) Exam Narrative Exam Narrative: AOx3 NAD Resp Other: bilateral ronchi Extrem Other: !+ pitting edema bilaterally Results Last Vital Signs Temp 36.6 C 06/17/24 13:36 Pulse 87 06/17/24 13:36 Resp 18 06/17/24 15:17 BP 115/47 L 06/17/24 13:36 Pulse Ox 88 L 06/17/24 15:17 Labs 06/17/24 16:05 06/17/24 16:05 Labs: Laboratory Results - last 24 hr 06/17/24 06/17/24 15:51 16:05 WBC 7.88 RBC 2.78 L Hgb 8.7 L Hct 28.1 L MCV 101 H MCH 31.3 MCHC 31.0 L RDW 15.1 H Plt Count 247 MPV 9.6 Immature Gran % 0.6 Neutrophils % 50.7 Lymphocytes % 26.6 Monocytes % 7.7 Eosinophils % 13.8 Basophils % 0.6 Nucleated RBC % 0.0 Absolute Neutrophils 3.98 Absolute Lymphocytes 2.10 Absolute Monocytes 0.61 Absolute Eosinophils 1.09 H Absolute Basophils 0.05 PT 11.0 INR 1.1 APTT 22.4 L NT-Pro-B Natriuret Pep Cancelled
[2024-06-17 16:50] LABS: COVID-19 PCR Negative (Negative); Influenza A PCR Negative (Negative); Influenza B PCR Negative (Negative); RSV PCR Negative (Negative)
[2024-06-17 16:52] LABS: Source Nasopharynx
--- NOTE | 2024-06-17 17:00 | DI.CT_ITS ---
Exam(s) CT CHEST PE CTA EXAM: CT CHEST PE CTA CLINICAL HISTORY: hemoptysis. TECHNIQUE: Imaging Protocol: Axial CT angiography was performed with multi-slice acquisition and mu lti-planar and/or 3D reconstructions. CONTRAST MATERIAL: Intravenous: Omnipaque 350 contrast volume:100 mL COMPARISON: CT CT CHEST LUNG CANCER SCREEN from 12/10/[address] CHEST WO from 05/18/2024 FINDINGS: Tracheobronchial tree: Patent where visualized. No bronchiectasis. Pulmonary parenchyma: Moderate emphysematous changes are seen in the lungs. There is a new 5 mm nodu le in the left lower lobe (series 7, image 366). There is a stable 7 to 8 mm nodule in the right upp er lobe (series 7, image 136). No focal consolidating infiltrates. Pulmonary fibrotic changes are p resent in the lungs. Pulmonary Arteries: No evidence of filling defect to suggest pulmonary emboli. Mediastinum and Astrid: No dominant adenopathy or fluid collection. The esophagus is unremarkable. Visualized thyroid gland: Unremarkable. Pleura: No effusion or pneumothorax. Heart: The heart is not dilated. Coronary artery calcifications are present. No pericardial effusion . Aorta: Thoracic aorta non-dilated. No evidence of dissection. Atherosclerotic calcification is presen t. Upper abdomen: Cholelithiasis. Soft tissues: Unremarkable. Bones: Within normal limits for the patient's age.There is a stable L1 compression fracture deformity . IMPRESSION: 1. No evidence of pulmonary embolism, thoracic aortic dissection or aneurysm. 2. New 5 mm nodule in the left lower lobe. Solid nodules smaller than 6 mm do not require routine follow-up in all patients with high clinical r isk; however, some nodules smaller than 6 mm with suspicious morphology, upper lobe location, or both may warrant follow-up at 12 months (grade 2A; weak recommendation, high-quality evidence). (Solis et al., 2017) Single solid noncalcified nodules. ???Solid nodules smaller than 6 mm (those 5 mm or smaller) do not require routine follow-up in patients at low risk (grade 1C; strong recommendation, low- or very-low- quality evidence). (Solis et al., 2017) RADIATION DOSE DELIVERED: Total DLP DATA REPOSITORY: All CT scans at this facility are submitted to the National Radiology Data Registry (NRDR) Dose Index Registry (DIR) with the [employer] (ACR). RADIATION OPTIMIZATION: All CT scans at this facility use at least one of these dose optimization te chniques: automated exposure control; mA and/or kV adjustment per patient size (includes targeted exa ms where dose is matched to clinical indication); or iterative reconstruction.
[2024-06-17 17:06] LABS: Bilirubin Negative (Negative); Blood Negative (Negative); Clarity Clear (Clear); Glucose Negative (Negative); Ketones Negative (Negative); Leukocyte Esterase Negative (Negative); Nitrite Negative (Negative); Specific Gravity 1.015 (1.005-1.025); Urobilinogen 0.2 mg/dL (Up to 0.2)
[2024-06-17 17:08] LABS: D-Dimer 1425 ng/mlFEU (<500)
[2024-06-17] MEDS: Normal Saline - Diluent 50 ML VIAL IJ (17:33)
[2024-06-17] MEDS: Omnipaque 350 MG/ML 100 ML BTL IJ (17:34)
[2024-06-17] MEDS: cefTRIAXone 2 GM/50 ML BAG IVPB (20:54)
[2024-06-17] MEDS: predniSONE 20 MG TAB 60 MG PO (20:54)
[2024-06-17] MEDS: Azithromycin 250 MG TAB 500 MG PO (20:54)
--- NOTE | 2024-06-17 22:43 | HPE_ITS ---
Date of service: 06/17/24 Time of Service: 22:44 Assessment and Plan Assessment and plan (1) Foreign body aspiration: Start date: 06/17/24 Status: Acute Assessment and plan: This is a 73-year-old lady who appears to have aspirated her Prozac filled about a week ago. She continues to have raspy voice and coarse cough and is admitted for IV Rocephin and Zithromax given in the ED as well as prednisone 60 mg p.o. She will be transferred in the morning to the ED at [facility] for pulmonology to perform bronchoscopy. She is agreeable with this plan. If she is stable after bronchoscopy they were discharged with medical therapy versus admit to [facility] for further treatment. She is a full code. Qualifiers: Encounter type: initial encounter Qualified Code(s): T17.908A - Unspecified foreign body in respiratory tract, part unspecified causing other injury, initial encounter (2) Hemoptysis: Start date: 06/17/24 Status: Acute Assessment and plan: Most likely due to irritation from aspiration of failed. Bronchoscopy as planned. (3) Acute hypernatremia: Start date: 06/17/24 Status: Acute Assessment and plan: Gentle IV hydration overnight with follow-up lab in the morning. (4) COPD (chronic obstructive pulmonary disease): Status: Chronic Assessment and plan: Continue outpatient medical therapy with nebulizers while hospitalized. Qualifiers: COPD type: emphysema Emphysema type: centrilobular Qualified Code(s): J43.2 - Centrilobular emphysema (5) Multiple pulmonary nodules: Assessment and plan: Follow-up with pulmonology locally with this chronic problem and now a new nodule which is less than 2 cm. (6) GERD (gastroesophageal reflux disease): Assessment and plan: Continue outpatient therapy. Qualifiers: Esophagitis presence: without esophagitis Qualified Code(s): K21.9 - Gastro-esophageal reflux disease without esophagitis History of Present Illness History of Present Illness Chief Complaint: Possible aspiration of medication tablet 1 week ago Narrative: This is a 73-year-old female patient who may have swallowed a tablet of her Prozac the wrong way being presumed that her airway having got stuck in her throat and seeming to partially dissolve but leaving her with a hoarse voice and progressive cough with production of sputum and some blood with hemoptysis last 2 days. She has occasional chills but denies any measured fever. She is not having chest pain or shortness of breath and denies any nausea or vomiting. She is able to swallow food without difficulty and is not having any abdominal or symptoms. She recently did have a hospitalization for COVID and did fall breaking her distal fibula during that stay. She is wearing an Ortho boot and has been less active than usual since that hospitalization. She does take inhalers for COPD with emphysema. She does see pulmonology who did consult in the ED recommending an urgent bronchoscopy for evaluation of possible aspiration of her Prozac tablet which could be done through the ED at [facility]. [facility] pulmonology also agrees with this and the ED provider did discuss case with Dr. Chisholm who recommended IV Rocephin and Zithromax along with oral prednisone being observed overnight pending transfer to the ED for bronchoscopy in the morning at [facility] once the appropriate team could be assembled. Patient was not having hypoxemia or respiratory distress but continued hoarse voice and increased sputum production. Do not requiring oxygen. She does not appear to be having exacerbation of her COPD overall. She does have a new pulmonary nodule and is follow-up of multiple pulmonary nodules by pulmonology. Patient does live with her partner who is supportive. She is a full code. Review of Systems Narrative: 13 point review of systems otherwise unrevealing or stable. PFSH All Active Problems (Updated 06/18/24 @ 00:00 by Danielle Bauman) Aspiration into respiratory tract (Acute) Acute hypernatremia (Acute) Foreign body aspiration (Acute) Hemoptysis (Acute) Ground glass opacity present on imaging of lung (Acute) Fracture of distal end of left fibula (Acute 05/20/24) Pulmonary fibrosis (Acute) Syncope (Chronic) Hypotension due to drugs (Acute) PVC (premature ventricular contraction) (Chronic) CHF (congestive heart failure) (Acute) Thrush (Acute) Pneumonia (Acute) Asthma (Chronic) Asthma-COPD overlap syndrome (Acute) Respiratory failure with hypoxia (Acute) Personal history of nicotine dependence (Acute) COPD (chronic obstructive pulmonary disease) (Chronic) Pulmonary nodules (Acute) Frequent ventricular premature beats (Acute) Chronic cough (Acute) Urinary incontinence (Acute) LPRD (laryngopharyngeal reflux disease) (Chronic) Rheumatoid arthritis (Chronic 09/20/13) Colon cancer screening (Acute) Medical History Obesity Depression Colitis Nephrolithiasis ETOH abuse Osteopenia Hyperplastic colonic polyp GERD (gastroesophageal reflux disease) Hypertension COPD (chronic obstructive pulmonary disease) Bilateral leg edema Prediabetes Multiple pulmonary nodules Lumbar back pain Osteoporosis Irregular heart beat Social History Smoking/Tobacco Use Status: Former Tobacco Use Quit Date: 07/18/07 Tobacco: How many years used: 40 Smoking risk assessment performed?: Yes Alcohol Intake: former Drug use: Never Housing: house Current gender identity: female Do you feel safe at home: Yes Do you feel safe in your relationship?: Yes Additional Social history: Tobacco use ,quit 07/24 (1/2-1ppd x 40yrs) Meds Allergies and Home Medications Allergies Allergy/AdvReac Type Severity Reaction Status Date / Time No Known Allergies Allergy Unverified 06/17/24 13:34 Home Medications ?Medication ?Instructions ?Recorded ?Confirmed ?Type albuterol sulfate 90 mcg/actuation 1 - 2 puff inhalation Q4H PRN 09/20/13 06/17/24 History aerosol inhaler (ProAir HFA) aspirin 81 mg tablet,delayed 81 mg PO DAILY 05/17/19 06/17/24 History release (Aspir-) oxybutynin chloride 5 mg tablet 5 mg PO BID PRN 05/17/19 06/17/24 History fluoxetine 40 mg capsule 40 mg PO DAILY 11/26/21 06/17/24 History methotrexate sodium 2.5 mg tablets 2.5 mg PO . Q WEEK 11/26/21 06/17/24 History in a dose pack (Methotrexate (Anti-Rheumatic)) omeprazole 40 mg capsule,delayed 40 mg PO DAILY 11/26/21 06/17/24 History release tiotropium bromide 2.5 2 puff inhalation DAILY #1 inh 12/14/21 06/17/24 Rx mcg/actuation mist for inhalation (Spiriva Respimat) fluticasone propionate 230 2 puff inhalation BID #12 grams 09/30/23 06/17/24 Rx mcg-salmeterol 21 mcg/actuation HFA inhaler (Advair HFA) atorvastatin 20 mg tablet 20 mg PO DAILY high cholesterol 05/18/24 06/17/24 History folic acid 1 mg tablet 1 mg PO DAILY I take Methotrexate 05/18/24 06/17/24 History benzonatate 200 mg capsule 200 mg PO TID PRN PRN Cough #20 05/22/24 06/17/24 Rx caps guaifenesin 600 mg tablet, 600 mg PO BID #30 tabs 05/22/24 06/17/24 Rx extended release 12 hr (Mucus Relief ER) magnesium oxide 400 mg (241.3 mg 400 mg PO DAILY #90 tabs 05/22/24 06/17/24 Rx magnesium) tablet alendronate 70 mg tablet 70 mg PO QWEEK 06/07/24 06/17/24 History Exam Narrative Exam Narrative: General: Patient appears older than stated age, alert and oriented x 3 and in no acute distress. She does have a coarse cough. She also has a raspy speech. HEENT: Normocephalic, eyes with pupils equal and reactive light symmetrically, extraocular movement and sclera anicteric. Oropharynx with dry mucosa. Neck: Supple without JVD. Back: Kyphotic without CVA tenderness. Lungs: Raspy coarse rhonchi with inspiration and expiration without expiratory wheeze. No increased expiratory phase. No focalizing inspiratory rales. Fair aeration. Heart: Regular rate and rhythm with no appreciable murmur or gallop. Breast: Exam deferred. Abdomen: Obese contour, soft and nontender to palpation with no palpable hepatosplenomegaly. Bowel sounds positive all quadrants. Genitalia/bladder: Exam deferred. Extremities: Without clubbing, cyanosis or pitting edema with nonpitting edema both lower extremities. Fair capillary refill. Skin: Normal color, warm and dry. Neuro: Facial nerves II through XII gross intact, no focalizing motor deficits and no tremor. Psych: Normal affect and mood. No abnormal thought processes. Remote and recent memory grossly intact. Results Imaging Imaging Studies: EXAM: CT CHEST PE CTA CLINICAL HISTORY: hemoptysis. TECHNIQUE: Imaging Protocol: Axial CT angiography was performed with multi- slice acquisition and multi-planar and/or 3D reconstructions. CONTRAST MATERIAL: Intravenous: Omnipaque 350 contrast volume:100 mL COMPARISON: CT CT CHEST LUNG CANCER SCREEN from 12/10/[address] CHEST WO from 05/18/2024 FINDINGS: Tracheobronchial tree: Patent where visualized. No bronchiectasis. Pulmonary parenchyma: Moderate emphysematous changes are seen in the lungs. There is a new 5 mm nodule in the left lower lobe (series 7, image 366). There is a stable 7 to 8 mm nodule in the right upper lobe (series 7, image 136). No focal consolidating infiltrates. Pulmonary fibrotic changes are present in the lungs. Pulmonary Arteries: No evidence of filling defect to suggest pulmonary emboli. Mediastinum and Astrid: No dominant adenopathy or fluid collection. The esophagus is unremarkable. Visualized thyroid gland: Unremarkable. Pleura: No effusion or pneumothorax. Heart: The heart is not dilated. Coronary artery calcifications are present. No pericardial effusion. Aorta: Thoracic aorta non-dilated. No evidence of dissection. Atherosclerotic calcification is present. Upper abdomen: Cholelithiasis. Soft tissues: Unremarkable. Bones: Within normal limits for the patient's age.There is a stable L1 compression fracture deformity. IMPRESSION: 1. No evidence of pulmonary embolism, thoracic aortic dissection or aneurysm. 2. New 5 mm nodule in the left lower lobe. Labs 06/17/24 16:05 06/17/24 16:05 Labs: Laboratory Results - last 24 hr 06/17/24 06/17/24 06/17/24 15:51 16:05 16:48 WBC 7.88 RBC 2.78 L Hgb 8.7 L Hct 28.1 L MCV 101 H MCH 31.3 MCHC 31.0 L RDW 15.1 H Plt Count 247 MPV 9.6 Immature Gran % 0.6 Neutrophils % 50.7 Lymphocytes % 26.6 Monocytes % 7.7 Eosinophils % 13.8 Basophils % 0.6 Nucleated RBC % 0.0 Absolute Neutrophils 3.98 Absolute Lymphocytes 2.10 Absolute Monocytes 0.61 Absolute Eosinophils 1.09 H Absolute Basophils 0.05 PT 11.0 INR 1.1 APTT 22.4 L D-Dimer 1425 H Sodium 146 H Potassium 4.2 Chloride 107 Carbon Dioxide 32.1 H Anion Gap 6.9 BUN 14 Creatinine 1.4 H Est GFR (CKD-EPI 2020) 39.23 Glucose 84 Calcium 8.5 Total Bilirubin 0.48 AST 20 ALT 18 Alkaline Phosphatase 89 NT-Pro-B Natriuret Pep Cancelled Total Protein 6.1 L Albumin 2.5 L Urine Color Yellow Urine Clarity Clear Urine pH 7.0 Ur Specific [place] 1.015 Urine Protein Negative Urine Ketones Negative Urine Blood Negative Urine Nitrite Negative Urine Bilirubin Negative Urine Urobilinogen 0.2 Ur Leukocyte Esterase Negative Urine Glucose Negative COVID-19 Source Nasopharynx SARS-CoV-2 (PCR) Negative Influenza Type A (PCR) Negative Influenza Type B (PCR) Negative RSV (PCR) Negative Last Vital Signs Temp 36.6 C 06/17/24 13:36 Pulse 75 06/17/24 21:01 Resp 20 06/17/24 17:10 BP 129/57 L 06/17/24 21:01 Pulse Ox 92 06/17/24 21:01 Time Spent Time spent with Patient: >75 minutes Time was spent: preparing to see the patient(eg.review tests), obtaining and/or reviewing separately otained hiistory, ordering medications,tests, procedures, referring, communicating with other health respiratory care practitioner, indepentently interpreting results, counseling the patient and care coordination
--- NOTE | 2024-06-18 01:12 | W.PC.ACHO ---
Registration Status: Primary Language: Preferred Language: ED Information & Data Chief Complaint RespSymp 06/17/24 15:54 Triage Note pt with aspiration of 06/17/24 13:36 prozaac last week, now loose congestion with raspy voice , no longer on O2 at night, O2 sats 90 on arrival then 94 while sitting. Medical / Surgical History (Last Reviewed 06/17/24 @ 16:49 by Isha Eagle MD) Obesity Depression Colitis Nephrolithiasis ETOH abuse Osteopenia Hyperplastic colonic polyp GERD (gastroesophageal reflux disease) Hypertension COPD (chronic obstructive pulmonary disease) Bilateral leg edema Prediabetes Multiple pulmonary nodules Lumbar back pain Osteoporosis Irregular heart beat Most Recent Vital Signs Temperature 36.4 C L 06/17/24 23:59 Temperature Source Temporal Artery Scan 06/17/24 23:57 Pulse 72 06/17/24 23:59 Pulse Rhythm Regular 06/17/24 23:59 Pulse 73 06/17/24 17:20 Respiratory Rate 18 06/17/24 23:59 Respiratory Effort Normal 06/17/24 23:59 Respiratory Depth Normal 06/17/24 23:59 Respiratory Pattern Normal 06/17/24 23:59 Blood Pressure 115/56 L 06/17/24 23:59 Blood Pressure Mean 61 06/17/24 22:31 Blood Pressure Position Sitting 06/17/24 13:36 Pulse Oximetry 94 06/17/24 23:59 Oxygen Delivery Method Room Air 06/17/24 23:59 Oxygen Flow Rate 0 06/17/24 23:59 Pain Level 0 06/17/24 23:59 Allergies No Known Allergies Allergy (Unverified 06/17/24 13:34) Precautions Isolation Standard precaution 06/17/24 13:38 Active Medications Generic Name Dose Route Start Last Admin Trade Name Anoop PRN Reason Stop Dose Admin Iohexol 100 ml 06/17/24 17:45 06/17/24 17:34 Omnipaque 350 Mg/Ml 100 Ml Btl IJ 07/17/24 23:59 100 ml DIRECTED BLADE Administration Methotrexate Sodium 10 mg 06/17/24 19:00 06/17/24 21:00 Methotrexate 2.5 Mg Tab PO Not Given Q7D BLADE Sodium Chloride 50 ml 06/17/24 17:45 06/17/24 17:33 Normal Saline - Diluent 50 Ml Vial IJ 50 ml .FOR DI USE BLADE Administration IV IV Catheter Type [Right Peripheral IV Antecubital] IV Catheter Gauge [Right 18 Antecubital] Diet Orders Category Date Time Status Heart Healthy Eating [DIET] Nutrition 06/18/24 Breakfast Active Diagnostics 06/18/24 06/17/24 06/17/24 Range/Units 04:35 23:05 16:48 WBC Pending (4.4-10.8) 10^3/uL RBC Pending (3.93-5.22) 10^6/uL Hgb Pending (11.2-15.7) g/dL Hct Pending (36.0-46.0) % MCV Pending (80-95) fL MCH Pending (27.0-33.0) pg MCHC Pending (32.0-36.0) % RDW Pending (11.7-14.6) % Plt Count Pending (130-400) 10^3/uL MPV Pending (8.0-11.0) fL Immature Gran % % Neutrophils % % Lymphocytes % % Monocytes % % Eosinophils % % Basophils % % Nucleated RBC % (0.0-0.3) % Absolute Neutrophils (1.2-6.7) 10^3/uL Absolute Lymphocytes (1.2-3.4) 10^3/uL Absolute Monocytes (0.1-0.8) 10^3/uL Absolute Eosinophils (0.0-0.7) 10^3/uL Absolute Basophils (0.0-0.2) 10^3/uL PT (9.1-11.1) sec INR (0.9-1.1) APTT (23.6-32.8) sec D-Dimer (<500) ng/mlFEU Sodium Pending (136-145) mmol/L Potassium Pending (3.5-5.1) mmol/L Chloride Pending (98-107) mmol/L Carbon Dioxide Pending (21.0-32.0) mmol/L Anion Gap Pending (3-11) mmol/L BUN Pending (7-18) mg/dL Creatinine Pending (0.55-1.02) mg/dL Est GFR (CKD-EPI 2020) Pending (mL/min/1.73m2) Glucose Pending (74-106) mg/dL Calcium Pending (8.5-10.1) mg/dL Total Bilirubin Pending (0.2-1.0) mg/dL AST Pending (15-37) U/L ALT Pending (14-59) U/L Alkaline Phosphatase Pending (46-116) U/L NT-Pro-B Natriuret Pep Total Protein Pending (6.4-8.2) g/dL Albumin Pending (3.4-5.0) g/dL Urine Color Yellow (Yellow) Urine Clarity Clear (Clear) Urine pH 7.0 (5-8) Ur Specific [place] 1.015 (1.005-1.025) Urine Protein Negative (Neg-Trace) mg/dL Urine Ketones Negative (Negative) mg/dL Urine Blood Negative (Negative) Urine Nitrite Negative (Negative) Urine Bilirubin Negative (Negative) Urine Urobilinogen 0.2 (Up to 0.2) mg/dL Ur Leukocyte Esterase Negative (Negative) Urine Glucose Negative (Negative) mg/dL COVID-19 Source Cancelled SARS-CoV-2 (PCR) Cancelled (Negative) Influenza Type A (PCR) (Negative) Influenza Type B (PCR) (Negative) RSV (PCR) (Negative) 06/17/24 06/17/24 Range/Units 16:05 15:51 WBC 7.88 (4.4-10.8) 10^3/uL RBC 2.78 L (3.93-5.22) 10^6/uL Hgb 8.7 L (11.2-15.7) g/dL Hct 28.1 L (36.0-46.0) % MCV 101 H (80-95) fL MCH 31.3 (27.0-33.0) pg MCHC 31.0 L (32.0-36.0) % RDW 15.1 H (11.7-14.6) % Plt Count 247 (130-400) 10^3/uL MPV 9.6 (8.0-11.0) fL Immature Gran % 0.6 % Neutrophils % 50.7 % Lymphocytes % 26.6 % Monocytes % 7.7 % Eosinophils % 13.8 % Basophils % 0.6 % Nucleated RBC % 0.0 (0.0-0.3) % Absolute Neutrophils 3.98 (1.2-6.7) 10^3/uL Absolute Lymphocytes 2.10 (1.2-3.4) 10^3/uL Absolute Monocytes 0.61 (0.1-0.8) 10^3/uL Absolute Eosinophils 1.09 H (0.0-0.7) 10^3/uL Absolute Basophils 0.05 (0.0-0.2) 10^3/uL PT 11.0 (9.1-11.1) sec INR 1.1 (0.9-1.1) APTT 22.4 L (23.6-32.8) sec D-Dimer 1425 H (<500) ng/mlFEU Sodium 146 H (136-145) mmol/L Potassium 4.2 (3.5-5.1) mmol/L Chloride 107 (98-107) mmol/L Carbon Dioxide 32.1 H (21.0-32.0) mmol/L Anion Gap 6.9 (3-11) mmol/L BUN 14 (7-18) mg/dL Creatinine 1.4 H (0.55-1.02) mg/dL Est GFR (CKD-EPI 2020) 39.23 (mL/min/1.73m2) Glucose 84 (74-106) mg/dL Calcium 8.5 (8.5-10.1) mg/dL Total Bilirubin 0.48 (0.2-1.0) mg/dL AST 20 (15-37) U/L ALT 18 (14-59) U/L Alkaline Phosphatase 89 (46-116) U/L NT-Pro-B Natriuret Pep Cancelled Total Protein 6.1 L (6.4-8.2) g/dL Albumin 2.5 L (3.4-5.0) g/dL Urine Color (Yellow) Urine Clarity (Clear) Urine pH (5-8) Ur Specific [place] (1.005-1.025) Urine Protein (Neg-Trace) mg/dL Urine Ketones (Negative) mg/dL Urine Blood (Negative) Urine Nitrite (Negative) Urine Bilirubin (Negative) Urine Urobilinogen (Up to 0.2) mg/dL Ur Leukocyte Esterase (Negative) Urine Glucose (Negative) mg/dL COVID-19 Source Nasopharynx SARS-CoV-2 (PCR) Negative (Negative) Influenza Type A (PCR) Negative (Negative) Influenza Type B (PCR) Negative (Negative) RSV (PCR) Negative (Negative) Intake and Output - 24 Hour Total 06/17/24 13:29 thru 06/17/24 23:59 Intake Total 10 Balance 10 Weight 68 kg Intake: IV 10 Falls Risk Assessment History of Falls Previous History 06/17/24 23:59 Contributing Factors No Factors 06/17/24 23:59 Ambulatory Aids Uses ambulatory device 06/17/24 23:59 Tubes/Lines None 06/17/24 23:59 Gait Evaluation W/no contributing factors 06/17/24 23:59 Cognition Cognitive impairment 06/17/24 23:59 Fall Total Score 55 06/17/24 23:59 Level of Risk High Risk 06/17/24 23:59 Problems (Last Reviewed 06/17/24 @ 16:49 by Isha Eagle MD) Aspiration into respiratory tract (Acute) Acute hypernatremia (Acute) Foreign body aspiration (Acute) Hemoptysis (Acute) Pulmonary fibrosis (Acute) Asthma-COPD overlap syndrome (Acute) Respiratory failure with hypoxia (Acute) COPD (chronic obstructive pulmonary disease) (Chronic) v v v v v v v v v Sending and/or Receiving Nurses: Please use comment section below to note any information pertinent to the patient hand-off not included above. Information / Comments: Patient with significant pulmonary history known to [facility] presents to ED with hoarseness, cough and difficulty swallowing for approximately a week. Patient states she was taking capsule ~ week ago and pill got stuck. Patient has had symptoms since then. No SOB. Patient able to manage secretions. Patient is alert and oriented x4, vital signs stable. Patient has been up to [facility]; she has walking boot to left lower extremity from previous recent injury, however is able to walk small distances and pivot. Patient has 18g IV in right AC. Plan for transfer to [facility] tomorrow for bronchoscopy. Report received from: Napoleon Ennis RN
[2024-06-18 02:42] VITALS: PULSE 54; RESP 18; RESP 8; O2SAT 93
[2024-06-18] MEDS: Albuterol/Ipratropium 3 ML UPD VIAL UPD (02:42)
[2024-06-18 02:52] VITALS: PULSE 60; RESP 18; O2SAT 99
[2024-06-18 03:38] VITALS: BP 139/60; PULSE 76; RESP 18; TEMP 36.2; O2SAT 92
[2024-06-18 05:42] LABS: HCT 27.2 % (36.0-46.0); HGB 8.7 g/dL (11.2-15.7); MCH 31.5 pg (27.0-33.0); MCV 99 fL (80-95); MPV 9.9 fL (8.0-11.0); Platelet Count 255 10^3/uL (130-400); RBC 2.76 10^6/uL (3.93-5.22); RDW 15.4 % (11.7-14.6); RDW-SD 53.8 fL; WBC 9.14 10^3/uL (4.4-10.8)
--- NOTE | 2024-06-18 05:43 | W.PM.DS.N ---
Date of service: 06/18/24 Time of Service: 05:52 DS: Diagnosis Discharge Diagnosis (1) Foreign body aspiration: Start date: 06/17/24 Status: Acute Asessment and Plan: Patient did well overnight with IV hydration and IV Rocephin with Zithromax being given in the ED. She also had prednisone orally. She has less cough but continues to have a raspy voice. She is being transferred to [facility] ED for planned bronchoscopy with pulmonology. He will to be admitted after bronchoscopy if needed for discharge home (2) Hemoptysis: Status: Acute Asessment and Plan: Secondary to aspiration most likely. Bronchoscopy will be helpful for diagnosis. (3) Acute hypernatremia: Status: Acute Asessment and Plan: Repeat lab pending at discharge. Follow-up as an outpatient. (4) COPD (chronic obstructive pulmonary disease): Status: Chronic Asessment and Plan: Continue follow-up with pulmonology. (5) Multiple pulmonary nodules: Asessment and Plan: Continue follow-up with pulmonology. (6) GERD (gastroesophageal reflux disease): Asessment and Plan: Continue PPI. Discharge Plan Disposition Specific Acute Inpt Facility: [facility] Condition: Fair Condition: Fair Discharge Details Reason For Visit: Aspiration foreign body, COPD with emphysema Admit Date/Time: 06/17/24 22:59 Admit Provider: Eulogio Sandy Attending Provider: Eulogio Sandy Primary Care Provider: Mounika Mccray [facility] Course Hospital Course: This is a 73-year-old lady who was admitted for possible aspiration of Prozac tablet 1 week prior to admission. She was on observation overnight and did well after initial IV antibiotics given in the ED with oral prednisone. She was accepted to [facility] ED for pulmonology to perform bronchoscopy with plans for either admission at [facility] for discharge home from that facility. She will follow-up with her PCP after this event. She also follows with local pulmonology for her chronic. She is a full code. Home Meds and New Rx's Prescriptions: No Action fluoxetine 40 mg capsule 40 mg PO DAILY omeprazole 40 mg capsule,delayed release(DR/EC) 40 mg PO DAILY Rx Instructions: May take a second if needed fluticasone propion-salmeterol [Advair HFA] 230-21 mcg/actuation HFA aerosol inhaler 2 puff inhalation BID Qty: 12 8RF alendronate 70 mg tablet 70 mg PO QWEEK albuterol sulfate [ProAir HFA] 8.5 GM HFA aerosol inhaler 1 - 2 puff Inhalation Q4H PRN Methotrexate (Anti-Rheumatic) 2.5 mg tablets,dose pack 2.5 mg PO . Q WEEK Patient Comments: 4 tabs every week, per PCP record Spiriva Respimat 2.5 mcg/actuation mist 2 puff inhalation DAILY Qty: 1 5RF atorvastatin 20 mg tablet 20 mg PO DAILY folic acid 1 mg tablet 1 mg PO DAILY Patient Comments: Folic Acid is to go in conjunction with Methotrexate that I take once a week. benzonatate 200 mg Capsule 200 mg PO TID PRN PRN (Reason: Cough) Qty: 20 0RF guaifenesin [Mucus Relief ER] 600 mg Tablet Extended Release 12hr 600 mg PO BID Qty: 30 0RF magnesium oxide 400 mg (241.3 mg magnesium) Tablet 400 mg PO DAILY Qty: 90 0RF aspirin [Aspir-81] 81 mg Tablet,Delayed Release (Dr/Ec) 81 mg PO DAILY oxybutynin chloride 5 mg Tablet 5 mg PO BID PRN Discharge Instructions Activity:: Activity as Tolerated Activity:: Activity as Tolerated Equipment/Supplies:: No Equipment Needed Diet:: As Tolerated Discharge Data Discharge Physician: Eulogio Sandy DS: Summary Time Spent with Patient providing and/or coordinating discharge services: Greater than 30 minutes Status at Discharge Functional status at discharge: independent ambulation Overall status at discharge: patient is not back to baseline Mental Status: mental status grossly normal Speech and Movement: speech and movement normal Mood: congruent mood Affect: normal affect Quality:SDOH Health Related Social Needs: No Data to Display Exam Narrative Exam Narrative: See H&P physical exam which was unchanged at discharge. Patient was not wearing her orthopedic boot while in bed. Psych Mental Status: mental status grossly normal Speech and Movement: speech and movement normal Mood: congruent mood Affect: normal affect DS: Data Vitals/I&O Vitals and I&O: Vital Signs Temperature 36.2 C L 06/18/24 03:38 Temperature Source Tympanic 06/18/24 03:38 Pulse 76 06/18/24 03:38 Pulse Rhythm Regular 06/17/24 23:59 Pulse 73 06/17/24 17:20 Respiratory Rate 18 06/18/24 03:38 Respiratory Effort Normal 06/17/24 23:59 Respiratory Depth Normal 06/17/24 23:59 Respiratory Pattern Normal 06/17/24 23:59 Blood Pressure 139/60 06/18/24 03:38 Blood Pressure Mean 61 06/17/24 22:31 Blood Pressure Position Sitting 06/17/24 13:36 Pulse Oximetry 92 06/18/24 03:38 Oxygen Delivery Method Room Air 06/18/24 03:38 Oxygen Flow Rate 0 06/18/24 03:38 Pain Level 0 06/18/24 03:38 Intake & Output 06/17/24 06/17/24 06/18/24 11:59 23:59 11:59 Intake Total Balance Weight 68 kg 67 kg Intake: IV Other: Urine Color Yellow Urine Appearance Clear Comment x1 pt up to commode. x1 incontinent brief. Voiding Methods Bedside Commode Data Completed and Pending Labs on day of discharge: Labs from last 24 hours 06/18/24 06/17/24 06/17/24 05:25 23:05 16:48 WBC Pending RBC Pending Hgb Pending Hct Pending MCV Pending MCH Pending MCHC Pending RDW Pending Plt Count Pending MPV Pending Immature Gran % Neutrophils % Lymphocytes % Monocytes % Eosinophils % Basophils % Nucleated RBC % Absolute Neutrophils Absolute Lymphocytes Absolute Monocytes Absolute Eosinophils Absolute Basophils PT INR APTT D-Dimer Sodium Pending Potassium Pending Chloride Pending Carbon Dioxide Pending Anion Gap Pending BUN Pending Creatinine Pending Est GFR (CKD-EPI 2020) Pending Glucose Pending Calcium Pending Total Bilirubin Pending AST Pending ALT Pending Alkaline Phosphatase Pending NT-Pro-B Natriuret Pep Total Protein Pending Albumin Pending Urine Color Yellow Urine Clarity Clear Urine pH 7.0 Ur Specific [place] 1.015 Urine Protein Negative Urine Ketones Negative Urine Blood Negative Urine Nitrite Negative Urine Bilirubin Negative Urine Urobilinogen 0.2 Ur Leukocyte Esterase Negative Urine Glucose Negative COVID-19 Source Cancelled SARS-CoV-2 (PCR) Cancelled Influenza Type A (PCR) Influenza Type B (PCR) RSV (PCR) 06/17/24 06/17/24 16:05 15:51 WBC 7.88 RBC 2.78 L Hgb 8.7 L Hct 28.1 L MCV 101 H MCH 31.3 MCHC 31.0 L RDW 15.1 H Plt Count 247 MPV 9.6 Immature Gran % 0.6 Neutrophils % 50.7 Lymphocytes % 26.6 Monocytes % 7.7 Eosinophils % 13.8 Basophils % 0.6 Nucleated RBC % 0.0 Absolute Neutrophils 3.98 Absolute Lymphocytes 2.10 Absolute Monocytes 0.61 Absolute Eosinophils 1.09 H Absolute Basophils 0.05 PT 11.0 INR 1.1 APTT 22.4 L D-Dimer 1425 H Sodium 146 H Potassium 4.2 Chloride 107 Carbon Dioxide 32.1 H Anion Gap 6.9 BUN 14 Creatinine 1.4 H Est GFR (CKD-EPI 2020) 39.23 Glucose 84 Calcium 8.5 Total Bilirubin 0.48 AST 20 ALT 18 Alkaline Phosphatase 89 NT-Pro-B Natriuret Pep Cancelled Total Protein 6.1 L Albumin 2.5 L Urine Color Urine Clarity Urine pH Ur Specific [place] Urine Protein Urine Ketones Urine Blood Urine Nitrite Urine Bilirubin Urine Urobilinogen Ur Leukocyte Esterase Urine Glucose COVID-19 Source Nasopharynx SARS-CoV-2 (PCR) Negative Influenza Type A (PCR) Negative Influenza Type B (PCR) Negative RSV (PCR) Negative PFSH All Active Problems (Updated 06/18/24 @ 00:00 by Danielle Bauman) Aspiration into respiratory tract (Acute) Acute hypernatremia (Acute) Foreign body aspiration (Acute) Hemoptysis (Acute) Ground glass opacity present on imaging of lung (Acute) Fracture of distal end of left fibula (Acute 05/20/24) Pulmonary fibrosis (Acute) Syncope (Chronic) Hypotension due to drugs (Acute) PVC (premature ventricular contraction) (Chronic) CHF (congestive heart failure) (Acute) Thrush (Acute) Pneumonia (Acute) Asthma (Chronic) Asthma-COPD overlap syndrome (Acute) Respiratory failure with hypoxia (Acute) Personal history of nicotine dependence (Acute) COPD (chronic obstructive pulmonary disease) (Chronic) Pulmonary nodules (Acute) Frequent ventricular premature beats (Acute) Chronic cough (Acute) Urinary incontinence (Acute) LPRD (laryngopharyngeal reflux disease) (Chronic) Rheumatoid arthritis (Chronic 09/20/13) Colon cancer screening (Acute) Medical History Obesity Depression Colitis Nephrolithiasis ETOH abuse Osteopenia Hyperplastic colonic polyp GERD (gastroesophageal reflux disease) Hypertension COPD (chronic obstructive pulmonary disease) Bilateral leg edema Prediabetes Multiple pulmonary nodules Lumbar back pain Osteoporosis Irregular heart beat Social History Smoking/Tobacco Use Status: Former Tobacco Use Quit Date: 07/18/07 Tobacco: How many years used: 40 Smoking risk assessment performed?: Yes Alcohol Intake: former Drug use: Never Housing: house Current gender identity: female Do you feel safe at home: Yes Do you feel safe in your relationship?: Yes Additional Social history: Tobacco use ,quit 07/24 (1/2-1ppd x 40yrs) Time Spent with Patient Time Spent with Patient: 45-69 minutes Time was spent: preparing to see the patient(eg.review tests), obtaining and/or reviewing separately otained hiistory, ordering medications,tests, procedures, referring, communicating with other health specialist wound care, indepentently interpreting results, counseling the patient and care coordination
[2024-06-18 05:59] LABS: ALT 18 U/L (14-59); AST 16 U/L (15-37); Albumin 2.5 g/dL (3.4-5.0); Alkaline Phosphatase 88 U/L (46-116); Anion Gap 7.6 mmol/L (3-11); BUN 12 mg/dL (7-18); Bilirubin, Total 0.44 mg/dL (0.2-1.0); CO2 29.4 mmol/L (21.0-32.0); CREATININE 1.3 mg/dL (0.55-1.02); Calcium 8.7 mg/dL (8.5-10.1); Chloride 105 mmol/L (98-107); Estimated GFR 42.88 (mL/min/1.73m2); Glucose 171 mg/dL (74-106); Sodium 142 mmol/L (136-145); Total Protein 6.2 g/dL (6.4-8.2)
== END 2024-06-18 07:29 | disposition short-term general hospital (02) | DRG 205 ==
LOC: ER 22:02 → MS 23:38
PROVIDERS: Admitting Provider Family Medicine; Emergency Provider Nurse Practitioner Family; PCP Family Medicine; Visit Provider Family Medicine
DX: T17.898A Other foreign object in other parts of respiratory tract causing other injury, initial encounter (principal); J96.21 Acute and chronic respiratory failure with hypoxia; R04.2 Hemoptysis; E87.0 Hyperosmolality and hypernatremia; W44.8XXA Other foreign body entering into or through a natural orifice, initial encounter; J44.9 Chronic obstructive pulmonary disease, unspecified; J84.10 Pulmonary fibrosis, unspecified; K21.9 Gastro-esophageal reflux disease without esophagitis; I49.3 Ventricular premature depolarization; I50.9 Heart failure, unspecified; R32 Unspecified urinary incontinence; I11.0 Hypertensive heart disease with heart failure; R73.03 Prediabetes; M81.0 Age-related osteoporosis without current pathological fracture
CPT/HCPCS: 00123; 36415; 71275; 80053; 85027; 87635; 87637; 93005; 96365; 99222; 99285; 81003; 83880; 85025; 85379; 85610; 85730; 93010; 94640; 99223; 99239; J0696; J3490; J7512; J7620

== ENCOUNTER 2024-06-29 01:50 | Outpatient (CLI) | payer MEDICARE, SELFPAY ==
--- NOTE | 2024-06-29 07:30 | DI.CT_ITS ---
Exam(s) CT CHEST WO EXAM: CT CHEST WO CLINICAL HISTORY: f/u post covid ground glass [id number]. TECHNIQUE: Multi planar reconstructions were performed. CONTRAST MATERIAL: None COMPARISON: CT CT CHEST LUNG CANCER SCREEN from 12/10/[address] CHEST WO from 05/18/[address] CHEST PE CTA from 06/17/2024 FINDINGS: CHEST: LUNGS: There is COPD findings as well as some interstitial fibrosis disease again noted. The ground glass infiltrates which were evident in the posterior segment of the right upper lobe on the 05/18/20 24 have mostly resolved.. There are no new areas of confluent infiltrate nor pleural effusions. The re is a noncalcified oval 7 by 6 mm nodule in the right upper lobe, unchanged from CT scan of 022 as well as unchanged from CT scan of 06/09/2019. Left upper lobe scarring is also unchanged. Ri ght upper lobe scarring also unchanged. No new findings in the trachea and mainstem bronchi.. MEDIASTINUM: There is no obvious hilar nor mediastinal adenopathy. No obvious axillary adenopathy CARDIAC: Heart size is upper normal. There is no pericardial effusion.Caliber of the thoracic aorta is within normal limits. VISUALIZED UPPER ABDOMEN:No adrenal masses. Benign cyst noted in the partially visualized left kidne y. Two small calcified gallstones are noted. No obvious cholecystitis findings. OSSEOUS: No significant osseous lesions.Nonacute compression fracture L1 which which is unchanged fro m CT scans listed above. The posterior superior cortex of the L1 vertebral body is again noted to be displaced posteriorly by 7 mm with some compression of the thecal sac at this level.. No other vert ebral fractures identified. IMPRESSION: 1. Advanced COPD changes and pulmonary fibrosis again noted. 2. Previously present ground-glass infiltrates have mostly resolved and there are no areas of new con fluent infiltrate nor pleural effusions nor new intrathoracic adenopathy. 3. There is again noted a 7 x 6 mm noncalcified nodule in the right upper lobe which is unchanged fro m CT scans dating back to May 2019 and therefore benign. RADIATION DOSE DELIVERED: Total DLP DATA REPOSITORY: All CT scans at this facility are submitted to the National Radiology Data Registry (NRDR) Dose Index Registry (DIR) with the [employer] (A[employer]). RADIATION OPTIMIZATION: All CT scans at this facility use at least one of these dose optimization te chniques: automated exposure control; mA and/or kV adjustment per patient size (includes targeted exa ms where dose is matched to clinical indication); or iterative reconstruction.
== END 2024-06-29 02:10 ==
LOC: DI 01:50
PROVIDERS: PCP Family Medicine; Visit Provider Internal Medicine Critical Care Medicine
DX: R91.8 Other nonspecific abnormal finding of lung field (principal)
CPT/HCPCS: 71250

== ENCOUNTER 2024-06-29 17:12 | Outpatient (CLI) | payer MEDICARE, SELFPAY ==
[2024-06-29 15:28] LABS: Abs Immature Grans 0.04 10^3/uL (0.0-0.06); Absolute Basophil Count 0.04 10^3/uL (0.0-0.2); Absolute Eosinophil Count 0.68 10^3/uL (0.0-0.7); Absolute Lymphocyte Count 2.44 10^3/uL (1.2-3.4); Absolute Monocyte Count 0.86 10^3/uL (0.1-0.8); Absolute Neutrophil Count 4.57 10^3/uL (1.2-6.7); Basophils % 0.5 %; Eosinophils % 7.9 %; HCT 30.5 % (36.0-46.0); HGB 9.5 g/dL (11.2-15.7); Immature Grans % 0.5 %; Lymphocytes % 28.3 %; MCH 31.4 pg (27.0-33.0); MCHC 31.1 % (32.0-36.0); MCV 101 fL (80-95); MPV 10.8 fL (8.0-11.0); Neutrophils % 52.8 %; Platelet Count 355 10^3/uL (130-400); RBC 3.03 10^6/uL (3.93-5.22); RDW 15.8 % (11.7-14.6); RDW-SD 56.8 fL; WBC 8.63 10^3/uL (4.4-10.8)
[2024-06-29 17:02] LABS: ALT 49 U/L (14-59); AST 27 U/L (15-37); Albumin 3.2 g/dL (3.4-5.0); Alkaline Phosphatase 86 U/L (46-116); Anion Gap 8.3 mmol/L (3-11); BUN 15 mg/dL (7-18); Bilirubin, Total 0.45 mg/dL (0.2-1.0); CO2 28.7 mmol/L (21.0-32.0); CREATININE 1.4 mg/dL (0.55-1.02); Calcium 8.8 mg/dL (8.5-10.1); Chloride 103 mmol/L (98-107); Estimated GFR 39.23 (mL/min/1.73m2); Glucose 84 mg/dL (74-106); Potassium 3.8 mmol/L (3.5-5.1); Sodium 140 mmol/L (136-145); Total Protein 6.7 g/dL (6.4-8.2)
[2024-06-29 17:49] LABS: NT-proBNP 685 pg/mL (<300)
[2024-06-30 10:47] LABS: Hepatitis B Surface Ag Negative (Negative)
[2024-06-30 11:15] LABS: Hep B Core Antibody Negative (Negative)
[2024-06-30 18:06] LABS: Hepatitis Be Antigen Negative (Negative)
== END 2024-06-29 17:13 | disposition home or self-care (01) ==
LOC: NCHCN 17:16
PROVIDERS: PCP Family Medicine; Visit Provider Family Medicine
DX: Z79.899 Other long term (current) drug therapy (principal); R60.0 Localized edema
CPT/HCPCS: 36415; 80053; 86704; 87340; 83735; 83880; 85025; 87350

== ENCOUNTER 2024-07-05 11:55 | Day surgery (SDC) | payer MEDICARE, SELFPAY ==
[2024-07-05] VITALS (21 sets, daily range): BP systolic 85–128; BP diastolic 28–69; PULSE 47–88; RESP 12–23; TEMP 36.3–36.7; O2SAT 92–98; BMI 28.1
[2024-07-05] MEDS: Lactated Ringers 1,000 ML 30 ML IV (12:35)
--- NOTE | 2024-07-05 12:53 | W.ANESPRE ---
General Info Date of Service Date Performed: 07/05/24 Height: 4 ft 11 in Weight: 63.2 kg Body Mass Index (BMI): 28.1 Surgical Procedure: Operation Date: 07/05/24 13:40 Proposed Procedure Side Surgeon p Bronchoscopy w/BAL, Transbronchial Biopsies Isha Eagle MD Meds Allergies and Home Medications Allergies Allergy/AdvReac Type Severity Reaction Status Date / Time No Known Allergies Allergy Verified 07/05/24 12:06 Home Medication ?Medication ?Instructions ?Recorded albuterol sulfate 90 mcg/actuation 1 - 2 puff inhalation Q4H PRN 09/20/13 aerosol inhaler (ProAir HFA) aspirin 81 mg tablet,delayed 81 mg PO DAILY 05/17/19 release (Aspir-) oxybutynin chloride 5 mg tablet 5 mg PO BID PRN 05/17/19 fluoxetine 40 mg capsule 40 mg PO DAILY 11/26/21 omeprazole 40 mg capsule,delayed 40 mg PO DAILY 11/26/21 release tiotropium bromide 2.5 2 puff inhalation DAILY #1 inh 12/14/21 mcg/actuation mist for inhalation (Spiriva Respimat) fluticasone propionate 230 2 puff inhalation BID #12 grams 09/30/23 mcg-salmeterol 21 mcg/actuation HFA inhaler (Advair HFA) atorvastatin 20 mg tablet 20 mg PO DAILY high cholesterol 05/18/24 folic acid 1 mg tablet 1 mg PO DAILY I take Methotrexate 05/18/24 benzonatate 200 mg capsule 200 mg PO TID PRN PRN Cough #20 05/22/24 caps guaifenesin 600 mg tablet, 600 mg PO BID #30 tabs 05/22/24 extended release 12 hr (Mucus Relief ER) magnesium oxide 400 mg (241.3 mg 400 mg PO DAILY #90 tabs 05/22/24 magnesium) tablet alendronate 70 mg tablet 70 mg PO QWEEK 06/07/24 Current Visit Medications: Current Medications Generic Name Dose Route Start Last Admin Trade Name Freq PRN Reason Stop Dose Admin Ringer's Solution 1,000 mls @ 30 mls/hr 07/05/24 06:00 07/05/24 12:35 IV 08/01/24 23:59 30 mls/hr INFUSION BLADE Administration IV Miscellaneous Supplies 1 each 07/05/24 06:00 Iv Access IV 08/01/24 23:59 DIRECTED BLADE Sodium Chloride 0 ml 07/05/24 06:00 Normal Saline Flush 10 Ml Syr IV 08/01/24 23:59 PRN PRN Sodium Chloride 0 ml 07/05/24 06:00 Normal Saline 10 Ml Vial IJ 08/01/24 23:59 DIRECTED PRN Sterile Water 0 ml 07/05/24 06:00 Water,Injection,Sterile 10 Ml Vial IJ 08/01/24 23:59 DIRECTED PRN PFSH Active Problems Active Problems: Problem Status Onset Code Aspiration into respiratory tract Acute T17.908A Acute hypernatremia Acute E87.0 Foreign body aspiration Acute T17.908A Hemoptysis Acute R04.2 Ground glass opacity present on imaging of lung Acute R91.8 Fracture of distal end of left fibula Acute 05/20/24 S82.832A Pulmonary fibrosis Acute J84.10 Syncope Chronic R55 Hypotension due to drugs Acute I95.2 PVC (premature ventricular contraction) Chronic I49.3 CHF (congestive heart failure) Acute I50.9 Thrush Acute B37.0 Pneumonia Acute J18.9 Asthma Chronic J45.909 Respiratory failure with hypoxia Acute J96.91 Personal history of nicotine dependence Acute Z87.891 COPD (chronic obstructive pulmonary disease) Chronic J44.9 Pulmonary nodules Acute R91.8 Frequent ventricular premature beats Acute I49.3 Chronic cough Acute R05.3 Urinary incontinence Acute R32 LPRD (laryngopharyngeal reflux disease) Chronic K21.9 Rheumatoid arthritis Chronic 09/20/13 M06.9 Colon cancer screening Acute Z12.11 Medical History Medical History Obesity Depression Colitis Nephrolithiasis ETOH abuse Osteopenia Hyperplastic colonic polyp GERD (gastroesophageal reflux disease) Hypertension COPD (chronic obstructive pulmonary disease) Bilateral leg edema Prediabetes Multiple pulmonary nodules Lumbar back pain Osteoporosis Irregular heart beat Tobacco Smoking/Tobacco Use Status: Former Tobacco Use Alcohol Alcohol Intake: former Substance Use Substance use: Never Substance use type: does not use Vital Signs and Lab Results Vital Signs Most Recent Vital Signs in EMR: Most Recent Vital Signs Temp Pulse Resp BP Pulse Ox 36.7 C 65 16 128/69 98 07/05/24 12:19 07/05/24 12:19 07/05/24 12:19 07/05/24 12:19 07/05/24 12:19 Lab Results Blood Type / Crossmatch: No Data to Display Complete Blood Count: White Blood Count 8.63 10^3/uL (4.4-10.8) 06/29/24 14:30 Red Blood Count 3.03 10^6/uL (3.93-5.22) L 06/29/24 14:30 Hemoglobin 9.5 g/dL (11.2-15.7) L 06/29/24 14:30 Hematocrit 30.5 % (36.0-46.0) L 06/29/24 14:30 Platelet Count 355 10^3/uL (130-400) 06/29/24 14:30 Complete Metabolic Panel: Sodium 140 mmol/L (136-145) 06/29/24 14:30 Potassium 3.8 mmol/L (3.5-5.1) 06/29/24 14:30 Chloride 103 mmol/L (98-107) 06/29/24 14:30 Carbon Dioxide 28.7 mmol/L (21.0-32.0) 06/29/24 14:30 BUN 15 mg/dL (7-18) 06/29/24 14:30 Creatinine 1.4 mg/dL (0.55-1.02) H 06/29/24 14:30 Est GFR (CKD-EPI 2020) 39.23 (mL/min/1.73m2) 06/29/24 14:30 Magnesium 2.0 mg/dL (1.8-2.4) 06/29/24 14:30 Calcium 8.8 mg/dL (8.5-10.1) 06/29/24 14:30 Albumin 3.2 g/dL (3.4-5.0) L 06/29/24 14:30 Glucose 84 mg/dL (74-106) 06/29/24 14:30 Liver Function Panel: Alanine Aminotransferase (ALT/SGPT) 49 U/L (14-59) 06/29/24 14:30 Aspartate Amino Transf (AST/SGOT) 27 U/L (15-37) 06/29/24 14:30 Coagulation Panel: INR International Normalized Ratio 1.1 (0.9-1.1) 06/17/24 16:05 Prothrombin Time 11.0 sec (9.1-11.1) 06/17/24 16:05 Activated Partial Thromboplast Time 22.4 sec (23.6-32.8) L 06/17/24 16:05 D-Dimer 1425 ng/mlFEU (<500) H 06/17/24 16:05 Cardiac Panel: NT-Pro-B Natriuret Pep 685 pg/mL (<300) H 06/29/24 Arterial Blood Gas: No Data to Display Venous Blood Gas: No Data to Display Pancreas Panel: No Data to Display Thyroid Panel: No Data to Display Infectious Disease: Coronavirus (COVID-19)(PCR) Negative (Negative) 06/17/24 16:05 Coronavirus 2019 Source Nasopharynx 06/17/24 16:05 Influenza Virus Type A (PCR) Negative (Negative) 06/17/24 16:05 Influenza Virus Type B (PCR) Negative (Negative) 06/17/24 16:05 Respiratory Syncytial Virus (PCR) Negative (Negative) 06/17/24 16:05 Hepatitis B Surface Antigen Negative (Negative) 06/29/24 14:30 Blood Cultures: No Data to Display Toxicology Panel: No Data to Display Imaging and Studies Imaging and Studies Study information below may be from another EMR and interpreted by another provider. Please see original notes in EMR for more complete details. EKG Summary: 06/17/24: Exam: Resting ECG Reason for Exam: Aspiration Patient Location: E HR:72 bpm ECG Measurements Heart Rate 72 AXIS FL 115 P 67 QRSd 79 QRS 65 QT 376 T65 QTc 412 Conclusion Sinus rhythm...normal P axis, V-rate 60- 99 Ventricular trigeminy...trigeminy string>6 w/ V complexes Abnrm T, consider ischemia, anterolateral lds...T <-0.20mV, I aVL V2-V6 I have reviewed and I agree with the emergency room physician's ECG interpretation. Echocardiogram Summary: 05/19/24: Reviewed in [facility] [place] records, WNL, EF 56% Anesthesia Assessment and Plan Anesthesia History Personal History: No History of Anesthesia Complications Family History: No Family History of Anesthesia Complications Exercise Tolerance Exercise Tolerance: Metabolic Equivalents>4 Pertinent Negatives Pertinent Negatives: No Major Cardiovascular Symptoms or Complaints Cardiac & Pulmonary Exam Cardiac Exam: Normal S1/S2 Heart Sounds Pulmonary Exam: Rhonchi Present Implantable Cardiac Device Does patient have a Pacemaker or an ICD?: No Airway Exam Known Difficult Airway: No Mallampati Class: 2 Mouth Opening: Normal (> 3cm) Thyromental Distance: Greater than 3 cm Neck Range of Motion: Full ROM Neck Circumference: Normal Teeth Condition: Generalized Poor Dentition (lower) and Removable Dentures/Plates Upper ASA Classification ASA Score: ASA 3 Emergency Case?: No NPO Status NPO Status: NPO Clears >2 hours, Solids >8 hours Anesthesia Plan Resuscitation Status: Full Code Anesthesia Technique: General Anesthesia Airway Planned: Endotracheal Tube Monitors Used: Standard Monitors
--- NOTE | 2024-07-05 14:06 | W.ANESPOSTOP ---
Postoperative Evaluation Date, Time and Location Date Performed: 07/05/24 Time Performed: 14:06 Patient Location: Day Surgery Unit Vital Signs Most Recent Imported Vital Signs: Most Recent Vital Signs Temp Pulse Resp BP Pulse Ox 36.7 C 65 16 128/69 98 07/05/24 12:19 07/05/24 12:19 07/05/24 12:19 07/05/24 12:19 07/05/24 12:19 Pain Score Most Recent Pain Score: Most Recent Pain Score Pain Level 0 07/05/24 12:19 Assessment Mental Status: Awake (Alert & Oriented to Patient Baseline) Airway and Respiratory Function: Patent airway with normal (patient baseline) respiratory exam Cardiovascular Function: Hemodynamically Stable Hydration Status: Adequately Hydrated Nausea & Vomiting: No Nausea or Vomiting Pain: Pt. Denies Any Pain Peripheral Nerve Block: Patient did not receive a nerve block
--- NOTE | 2024-07-05 14:29 | W.PM.OP ---
Date of service: 07/05/24 Time of Service: 14:29 Operative Note Operative Note DATE OF PROCEDURE: 07/05/24 PRE-OP DIAGNOSIS: Pill aspiration, productive cough POST-OP DIAGNOSIS: same PROCEDURE: Bronchoscopy for airway inspection and BAL RML SURGEON: Isha Eagle ANESTHESIA TYPE: General LMA/ETT Refer to Anesthesia Record COMPLICATIONS: None Patient was transported to: PACU Patient's condition: stable Procedure Description: After consent obtained, patient was brought to the operating room and after receiving general anesthesia ET tube 7.5 was introduced without difficulty. Subsequently bronchoscope was introduced in trachea and right main and left main bronchus were inspected as well as subsegments and was suctioned free of secretions. A large amount of white thick sputum was seen in both the right main and left main bronchus. No endobronchial lesions. No residual foreign body observed. BAL of the right middle lobe was obtained. 100 mL were instilled and approximately 50 mL returned. Patient tolerated the procedure well. No bleeding encountered. BAL will be sent for micro
[2024-07-05 22:17] LABS: Lymphocytes Fluid Relative 7 %; Mono/Macrophage Fluid Relative 3 %; Neutrophils Fluid Relative 90 %
[2024-07-07 07:31] LABS: Gram Smear Result Neutrophils Present
== END 2024-07-05 15:35 | disposition home or self-care (01) ==
PROVIDERS: PCP Family Medicine; Visit Provider Internal Medicine Critical Care Medicine
PROC: 0BJ08ZZ Inspection of Tracheobronchial Tree, Via Natural or Artificial Opening Endoscopic (ICD-10-PCS; CPT 31622; principal; 2024-07-05 13:30)
DX: R05.9 Cough, unspecified; T17.908A Unspecified foreign body in respiratory tract, part unspecified causing other injury, initial encounter
CPT/HCPCS: 31624; 00123; 80162; 87070; 87077; 87205; 99213; J2001; J2405; J2704

== ENCOUNTER 2024-07-05 15:45 | Outpatient (CLI) | payer MEDICARE, SELFPAY ==
--- NOTE | 2024-07-05 10:11 | DI.RAD_ITS ---
Exam(s) XR ANKLE LT COMPLETE EXAM: XR ANKLE LT COMPLETE CLINICAL HISTORY: F/U L DISTAL FIB FX TECHNIQUE: 2D digital imaging was performed of the left ankle. Three images were obtained. AP, lat eral and oblique views were obtained. COMPARISON: CR XR ANKLE LT COMPLETE from 06/03/2024 FINDINGS: BONES: There is no change in alignment of the distal fibular fracture. No new fractures identified. There is a small enthesophyte at the posterior calcaneus. No bony destructive lesion is seen. JOINTS:The ankle mortise is normally aligned. SOFT TISSUE: Mild soft tissue swelling over the lateral ankle. IMPRESSION: Stable alignment of the distal left fibular fracture. DATA REPOSITORY: RADIATION DOSE DELIVERED:
== END 2024-07-05 15:46 | disposition home or self-care (01) ==
LOC: DIORS 15:46
PROVIDERS: PCP Family Medicine; Visit Provider Student in an Organized Health Care Education/Training Program
DX: S82.832D Other fracture of upper and lower end of left fibula, subsequent encounter for closed fracture with routine healing (principal); X58.XXXD Exposure to other specified factors, subsequent encounter
CPT/HCPCS: 73610

== ENCOUNTER → 2024-07-07 10:42 | Outpatient (BNVA) | payer MEDICARE, SELFPAY | PROVIDERS: PCP Family Medicine; Referring Provider Family Medicine; Visit Provider Internal Medicine Critical Care Medicine | DX: J43.2 Centrilobular emphysema (principal); R91.8 Other nonspecific abnormal finding of lung field; T17.908A Unspecified foreign body in respiratory tract, part unspecified causing other injury, initial encounter | CPT/HCPCS: 99443 ==

== ENCOUNTER → 2024-07-21 13:37 | Outpatient (BNVA) | payer MEDICARE, SELFPAY | PROVIDERS: PCP Family Medicine; Referring Provider Family Medicine; Visit Provider Physician Assistant Surgical | DX: J44.89 Other specified chronic obstructive pulmonary disease (principal); M05.7A Rheumatoid arthritis with rheumatoid factor of other specified site without organ or systems involvement; R91.8 Other nonspecific abnormal finding of lung field; J96.21 Acute and chronic respiratory failure with hypoxia; Z87.891 Personal history of nicotine dependence | CPT/HCPCS: 99214 ==

== ENCOUNTER 2024-08-18 00:56 | Outpatient (CLI) | payer MEDICARE, SELFPAY ==
--- NOTE | 2024-08-18 08:53 | DI.CT_ITS ---
Exam(s) CT CHEST WO EXAM: CT CHEST WO CLINICAL HISTORY: GROUND GLASS opacities, nodule,r91.8 TECHNIQUE: Imaging Protocol: Axial computed tomography images with coronal and sagittal reformatted images were created and reviewed CONTRAST MATERIAL: Intravenous: Omnipaque 350 Contrast volume:structured data ml. COMPARISON: CT CT CHEST LUNG CANCER SCREEN from 09/08/[address] CHEST WO from 06/29/2024 FINDINGS: Pulmonary parenchyma: No consolidation. Interstitial changes throughout. Emphysematous changes at t he upper lobes. No ground-glass infiltrates present. Stable smoothly marginated nodule in the right upper lobe. Tracheobronchial tree: No bronchiectasis or mucous plugging. Mediastinum and Astrid: No dominant adenopathy or fluid collection. Pleura: No effusion. No pneumothorax. Heart: The heart is mildly dilated. [id number] coronary artery calcifications are seen. Aorta: Thoracic aorta non-dilated. Mild atherosclerotic changes. Pulmonary arteries: Normal diameter. Upper abdomen: No acute findings. Bones: Degenerative changes in the spine. Stable L1 compression fracture. Soft tissues: Unremarkable. IMPRESSION: No acute abnormality. Resolution of ground-glass infiltrates. Underlying emphysematous and fibrotic changes. Stable right upper lobe nodule. RADIATION DOSE DELIVERED: 162.38mGy.cm Total DLP DATA REPOSITORY: All CT scans at this facility are submitted to the National Radiology Data Registry (NRDR) Dose Index Registry (DIR) with the [employer] (A[employer]). RADIATION OPTIMIZATION: All CT scans at this facility use at least one of these dose optimization te chniques: automated exposure control; mA and/or kV adjustment per patient size (includes targeted exa ms where dose is matched to clinical indication); or iterative reconstruction.
== END 2024-08-18 01:16 ==
LOC: DI 00:56
PROVIDERS: PCP Family Medicine; Visit Provider Internal Medicine Critical Care Medicine
DX: R91.8 Other nonspecific abnormal finding of lung field (principal)
CPT/HCPCS: 71250

== ENCOUNTER 2024-09-21 02:18 | Outpatient (CLI) | payer MEDICARE, SELFPAY ==
[2024-09-21 11:08] LABS: Abs Immature Grans 0.03 10^3/uL (0.0-0.06); Absolute Basophil Count 0.07 10^3/uL (0.0-0.2); Absolute Eosinophil Count 0.48 10^3/uL (0.0-0.7); Absolute Lymphocyte Count 1.39 10^3/uL (1.2-3.4); Absolute Monocyte Count 0.64 10^3/uL (0.1-0.8); Absolute Neutrophil Count 5.66 10^3/uL (1.2-6.7); Basophils % 0.8 %; Eosinophils % 5.8 %; HGB 11.1 g/dL (11.2-15.7); Immature Grans % 0.4 %; Lymphocytes % 16.8 %; MCH 29.1 pg (27.0-33.0); MCHC 31.7 % (32.0-36.0); MCV 92 fL (80-95); MPV 9.3 fL (8.0-11.0); Monocytes % 7.7 %; Neutrophils % 68.5 %; Platelet Count 306 10^3/uL (130-400); RBC 3.82 10^6/uL (3.93-5.22); RDW 13.7 % (11.7-14.6); RDW-SD 45.6 fL; WBC 8.27 10^3/uL (4.4-10.8)
[2024-09-21 11:57] LABS: ALT 18 U/L (14-59); AST 17 U/L (15-37); Albumin 3.1 g/dL (3.4-5.0); Alkaline Phosphatase 95 U/L (46-116); BUN 18 mg/dL (7-18); Bilirubin, Total 0.52 mg/dL (0.2-1.0); CREATININE 1.2 mg/dL (0.55-1.02); Chloride 107 mmol/L (98-107); Estimated GFR 47.21 (mL/min/1.73m2); Glucose 110 mg/dL (74-106); Potassium 3.7 mmol/L (3.5-5.1); Sodium 145 mmol/L (136-145); Total Protein 6.8 g/dL (6.4-8.2)
[2024-09-21 12:06] LABS: NT-proBNP 362 pg/mL (<300)
== END 2024-09-21 02:19 | disposition home or self-care (01) ==
LOC: LBO 02:18
PROVIDERS: Nurse Practitioner Family; PCP Family Medicine; Visit Provider Student in an Organized Health Care Education/Training Program
DX: I50.9 Heart failure, unspecified (principal); Z79.899 Other long term (current) drug therapy; L03.90 Cellulitis, unspecified; R39.9 Unspecified symptoms and signs involving the genitourinary system; R05.9 Cough, unspecified; R68.89 Other general symptoms and signs; N30.00 Acute cystitis without hematuria; J06.9 Acute upper respiratory infection, unspecified
CPT/HCPCS: 36415; 80053; 83880; 85025

== ENCOUNTER 2024-09-21 11:24 | Outpatient (REF) | payer MEDICARE, SELFPAY ==
[2024-09-21 15:40] LABS: Bilirubin Negative (Negative); Blood Trace-lysed (Negative); Clarity Sl Cloudy (Clear); Glucose Negative (Negative); Ketones Negative (Negative); Leukocyte Esterase Small (Negative); Nitrite Positive (Negative); Specific Gravity 1.015 (1.005-1.025); Urobilinogen 0.2 mg/dL (Up to 0.2); pH 6.5 (5-8)
[2024-09-21 15:55] LABS: C & S Indicated? Yes; WBC >50 HPF (0-5)
== END 2024-09-21 11:25 | disposition home or self-care (01) ==
LOC: LBN 11:24
PROVIDERS: PCP Family Medicine; Visit Provider Nurse Practitioner Family
DX: R39.9 Unspecified symptoms and signs involving the genitourinary system (principal); L03.90 Cellulitis, unspecified; I50.33 Acute on chronic diastolic (congestive) heart failure; I50.9 Heart failure, unspecified; R05.9 Cough, unspecified; R68.89 Other general symptoms and signs; N30.00 Acute cystitis without hematuria; J06.9 Acute upper respiratory infection, unspecified
CPT/HCPCS: 87077; 81003; 81015; 87086; 87186

== ENCOUNTER 2024-09-21 13:54 | Outpatient (CLI) | payer MEDICARE, SELFPAY ==
--- NOTE | 2024-09-21 11:00 | DI.RAD_ITS ---
Exam(s) XR CHEST 2V PA LATERAL EXAM: XR CHEST 2V PA LATERAL CLINICAL HISTORY: eval pathology R05.9 COUGH TECHNIQUE: 2D digital imaging was performed of the chest. Two images were obtained. PA and lateral views were obtained. COMPARISON: CR XR CHEST 2V PA LATERAL from 05/18/2024 FINDINGS: MEDIASTINUM: Normal. HEART: Normal. PULMONARY VASCULATURE: Normal. LUNGS: No focal consolidating infiltrates are present. PLEURAL SPACE: No pleural effusion or pneumothorax. BONE:Within normal limits for the patient's age. There is an old L1 compression fracture deformity. OTHER FINDINGS:Normal. IMPRESSION: No acute pulmonary findings. DATA REPOSITORY: RADIATION DOSE DELIVERED:
== END 2024-09-21 14:14 ==
PROVIDERS: PCP Family Medicine; Visit Provider Nurse Practitioner Family
DX: R05.9 Cough, unspecified (principal)
CPT/HCPCS: 71046

== ENCOUNTER 2024-10-05 03:17 | Outpatient (CLI) | payer MEDICARE, SELFPAY ==
[2024-10-05 13:28] LABS: Abs Immature Grans 0.05 10^3/uL (0.0-0.06); Absolute Basophil Count 0.12 10^3/uL (0.0-0.2); Absolute Eosinophil Count 0.94 10^3/uL (0.0-0.7); Absolute Lymphocyte Count 2.04 10^3/uL (1.2-3.4); Absolute Monocyte Count 0.84 10^3/uL (0.1-0.8); Basophils % 1.1 %; Eosinophils % 8.5 %; HCT 36.4 % (36.0-46.0); HGB 11.5 g/dL (11.2-15.7); Immature Grans % 0.5 %; Lymphocytes % 18.4 %; MCH 28.7 pg (27.0-33.0); MCHC 31.6 % (32.0-36.0); MCV 91 fL (80-95); MPV 9.7 fL (8.0-11.0); Monocytes % 7.6 %; Neutrophils % 63.9 %; Platelet Count 345 10^3/uL (130-400); RBC 4.01 10^6/uL (3.93-5.22); RDW 14.9 % (11.7-14.6); RDW-SD 48.8 fL; WBC 11.08 10^3/uL (4.4-10.8)
[2024-10-05 13:33] LABS: Absolute Neutrophil Count 7.08 10^3/uL (1.2-6.7)
[2024-10-05 13:42] LABS: Anion Gap 8.5 mmol/L (3-11); BUN 18 mg/dL (7-18); CO2 27.5 mmol/L (21.0-32.0); CREATININE 1.2 mg/dL (0.55-1.02); Calcium 9.2 mg/dL (8.5-10.1); Chloride 107 mmol/L (98-107); Estimated GFR 47.21 (mL/min/1.73m2); Glucose 155 mg/dL (74-106); Potassium 4.1 mmol/L (3.5-5.1); Sodium 143 mmol/L (136-145)
== END 2024-10-05 03:18 | disposition home or self-care (01) ==
LOC: LBO 03:17
PROVIDERS: PCP Family Medicine; Visit Provider Nurse Practitioner Family
DX: L03.90 Cellulitis, unspecified (principal); I50.33 Acute on chronic diastolic (congestive) heart failure
CPT/HCPCS: 36415; 80048; 85025

== ENCOUNTER → 2024-10-06 08:01 | Outpatient (BNVA) | payer MEDICARE, SELFPAY | PROVIDERS: PCP Family Medicine; Referring Provider Family Medicine; Visit Provider Physician Assistant Surgical | DX: J44.9 Chronic obstructive pulmonary disease, unspecified (principal); M05.7A Rheumatoid arthritis with rheumatoid factor of other specified site without organ or systems involvement; R91.8 Other nonspecific abnormal finding of lung field; J96.21 Acute and chronic respiratory failure with hypoxia; Z87.891 Personal history of nicotine dependence | CPT/HCPCS: 99214 ==

== ENCOUNTER 2024-10-06 10:42 | Outpatient (CLI) | payer MEDICARE, SELFPAY ==
--- NOTE | 2024-10-06 08:42 | DI.RAD_ITS ---
Exam(s) XR CHEST 2V PA LATERAL EXAM: XR CHEST 2V PA LATERAL CLINICAL HISTORY: left lower lobe rhonchi and ill, pneumonia, J18.9. TECHNIQUE: 2D digital imaging was performed. COMPARISON: CT CT CHEST WO from 06/29/[address] CHEST WO from 08/18/2024 CR XR CHEST 2V PA LATERAL from 09/21/2024 FINDINGS: 2 views: Heart size is normal. The mediastinum is not widened. No new confluent infiltrates nor pleural effusions. Mild infiltrate in the right upper lobe is uncha nged. This is located in the anterior segment subpleural location of the right upper lobe on recent CT scan 08/18/2024. However, is chronic-unchanged from CT scan of 06/29/2024. There also appears to be an element of interstitial fibrosis again evident.. No pleural effusions. No pulmonary edema. IMPRESSION: Findings as above but unchanged from 09/21/2024 chest x-ray DATA REPOSITORY: RADIATION DOSE DELIVERED:
== END 2024-10-06 11:02 ==
PROVIDERS: PCP Family Medicine; Visit Provider Physician Assistant Surgical
DX: J18.9 Pneumonia, unspecified organism (principal)
CPT/HCPCS: 71046

== ENCOUNTER 2024-12-03 01:02 | Outpatient (CLI) | payer MEDICARE, SELFPAY ==
[2024-12-03 11:41] LABS: Abs Immature Grans 0.03 10^3/uL (0.0-0.06); Absolute Basophil Count 0.05 10^3/uL (0.0-0.2); Absolute Lymphocyte Count 1.59 10^3/uL (1.2-3.4); Absolute Monocyte Count 0.57 10^3/uL (0.1-0.8); Absolute Neutrophil Count 5.84 10^3/uL (1.2-6.7); Basophils % 0.6 %; Eosinophils % 5.8 %; HCT 34.4 % (36.0-46.0); Immature Grans % 0.3 %; Lymphocytes % 18.5 %; MCH 29.8 pg (27.0-33.0); MCV 93 fL (80-95); MPV 9.9 fL (8.0-11.0); Monocytes % 6.6 %; Neutrophils % 68.2 %; Platelet Count 188 10^3/uL (130-400); RBC 3.69 10^6/uL (3.93-5.22); RDW 15.2 % (11.7-14.6); RDW-SD 52.3 fL; WBC 8.58 10^3/uL (4.4-10.8)
[2024-12-03 12:09] LABS: ALT 18 U/L (14-59); AST 17 U/L (15-37); Albumin 3.3 g/dL (3.4-5.0); Alkaline Phosphatase 78 U/L (46-116); Anion Gap 3.9 mmol/L (3-11); BUN 14 mg/dL (7-18); Bilirubin, Total 0.51 mg/dL (0.2-1.0); CO2 32.1 mmol/L (21.0-32.0); Calcium 9.2 mg/dL (8.5-10.1); Chloride 107 mmol/L (98-107); Estimated GFR 58.39 (mL/min/1.73m2); Glucose 100 mg/dL (74-106); Potassium 4.4 mmol/L (3.5-5.1); Sodium 143 mmol/L (136-145); Total Protein 6.5 g/dL (6.4-8.2)
== END 2024-12-03 01:03 | disposition home or self-care (01) ==
LOC: LBO 01:02
PROVIDERS: PCP Family Medicine; Visit Provider Student in an Organized Health Care Education/Training Program
DX: Z79.899 Other long term (current) drug therapy (principal); M05.79 Rheumatoid arthritis with rheumatoid factor of multiple sites without organ or systems involvement
CPT/HCPCS: 36415; 80053; 85025

== ENCOUNTER 2024-12-31 11:38 | Outpatient (REF) | payer MEDICARE, SELFPAY ==
[2024-12-31 15:40] LABS: Abs Immature Grans 0.08 10^3/uL (0.0-0.06); Absolute Basophil Count 0.05 10^3/uL (0.0-0.2); Absolute Neutrophil Count 9.22 10^3/uL (1.2-6.7); Basophils % 0.4 %; Eosinophils % 3.5 %; HCT 34.1 % (36.0-46.0); HGB 11.1 g/dL (11.2-15.7); Immature Grans % 0.7 %; Lymphocytes % 8.7 %; MCH 30.5 pg (27.0-33.0); MCHC 32.6 % (32.0-36.0); MCV 94 fL (80-95); MPV 10.5 fL (8.0-11.0); Monocytes % 10.7 %; Platelet Count 280 10^3/uL (130-400); RBC 3.64 10^6/uL (3.93-5.22); RDW 14.2 % (11.7-14.6); RDW-SD 48.2 fL; WBC 12.13 10^3/uL (4.4-10.8)
[2024-12-31 15:42] LABS: ESR 23 mm/hr (0-30)
[2024-12-31 15:48] LABS: Absolute Eosinophil Count 0.42 10^3/uL (0.0-0.7); Absolute Lymphocyte Count 1.06 10^3/uL (1.2-3.4)
[2024-12-31 15:55] LABS: ALT 19 U/L (14-59); AST 16 U/L (15-37); Albumin 3.1 g/dL (3.4-5.0); Alkaline Phosphatase 82 U/L (46-116); BUN 26 mg/dL (7-18); Bilirubin, Total 0.43 mg/dL (0.2-1.0); C-Reactive Protein 13.13 mg/dL (<or=0.5); CREATININE 1.3 mg/dL (0.55-1.02); Calcium 8.9 mg/dL (8.5-10.1); Chloride 108 mmol/L (98-107); Estimated GFR 42.62 (mL/min/1.73m2); Glucose 109 mg/dL (74-106); Potassium 4.3 mmol/L (3.5-5.1); Sodium 143 mmol/L (136-145); Total Protein 6.4 g/dL (6.4-8.2)
== END 2024-12-31 11:39 | disposition home or self-care (01) ==
LOC: NCHCN 11:38
PROVIDERS: PCP Family Medicine; Visit Provider Family Medicine
DX: N18.32 Chronic kidney disease, stage 3b (principal); M06.9 Rheumatoid arthritis, unspecified
CPT/HCPCS: 80053; 85652; 85025; 86140

== ENCOUNTER 2025-01-17 01:03 | Outpatient (CLI) | payer MEDICARE, SELFPAY ==
--- NOTE | 2025-01-17 | DI.CT_ITS ---
Exam(s) CT CHEST WO EXAM: CT CHEST WO CLINICAL HISTORY: ASTHMA-COPD OVERLAP SYNDROME J44.9, KNOWN RA, ABNL CXR 12/30/24 CONCERN FOR. TECHNIQUE: Imaging protocol: Axial computed tomography images were obtained and coronal and sagittal reformatted images were created and reviewed. Computer aided detection (CAD) was utilized. CONTRAST MATERIAL: Noncontrast COMPARISON: CT CT CHEST PE CTA from 06/17/[address] CHEST WO from 06/29/[address] CHEST WO from 08/18/2024 CR XR CHEST 2V PA LATERAL from 09/21/2024 CR XR CHEST 2V PA LATERAL from 10/06/2024 FINDINGS: Pulmonary parenchyma: Mild patchy infiltrates now seen posteriorly in the lower lobes no consolidatio n. Stable right upper lobe nodule. Interstitial changes: Stable appearance of increased interchange interstitial changes greatest in th e right upper lobe. Scarring bilateral upper lobes. Emphysema: Stable upper lobe emphysematous changes. Tracheobronchial tree: No mucous plugging. No bronchiectasis . Pleura: No effusion or pneumothorax. Heart: The heart is mildly dilated. The coronary arteries show moderate calcifications. Aorta: Thoracic aorta non-dilated. Mild atherosclerotic changes. Lymph nodes: No enlarged lymph nodes. Bones: Degenerative changes are seen. Stable L1 compression fracture. Upper abdomen: Unremarkable. Soft tissues: Unremarkable. IMPRESSION: Stable appearance emphysematous and fibrotic changes in the upper lobes. New mild patchy infiltrates in both lower lobes. RADIATION DOSE DELIVERED: Total DLP Total DLP DATA REPOSITORY: All CT scans at this facility are submitted to the National Radiology Data Registry (NRDR) Dose Index Registry (DIR) with the [employer] (ACR). RADIATION OPTIMIZATION: All CT scans at this facility use at least one of these dose optimization te chniques: automated exposure control; mA and/or kV adjustment per patient size (includes targeted exa ms where dose is matched to clinical indication); or iterative reconstruction.
== END 2025-01-17 01:23 ==
LOC: DI 01:03
PROVIDERS: PCP Family Medicine; Visit Provider Family Medicine
DX: J44.9 Chronic obstructive pulmonary disease, unspecified (principal)
CPT/HCPCS: 71250

== ENCOUNTER → 2025-01-18 11:07 | Outpatient (BNVA) | payer MEDICARE, SELFPAY | PROVIDERS: PCP Family Medicine; Referring Provider Family Medicine; Visit Provider Physician Assistant Surgical | DX: M05.7A Rheumatoid arthritis with rheumatoid factor of other specified site without organ or systems involvement (principal); R91.8 Other nonspecific abnormal finding of lung field; Z87.891 Personal history of nicotine dependence; J96.21 Acute and chronic respiratory failure with hypoxia; J44.9 Chronic obstructive pulmonary disease, unspecified | CPT/HCPCS: 99214 ==

== ENCOUNTER 2025-03-30 03:32 | Outpatient (CLI) | payer MEDICARE, SELFPAY ==
[2025-03-30 09:17] LABS: Abs Immature Grans 0.02 10^3/uL (0.0-0.06); Absolute Basophil Count 0.09 10^3/uL (0.0-0.2); Absolute Eosinophil Count 1.02 10^3/uL (0.0-0.7); Absolute Lymphocyte Count 2.06 10^3/uL (1.2-3.4); Absolute Monocyte Count 0.67 10^3/uL (0.1-0.8); Absolute Neutrophil Count 2.95 10^3/uL (1.2-6.7); Basophils % 1.3 %; HCT 35.3 % (36.0-46.0); HGB 11.7 g/dL (11.2-15.7); Immature Grans % 0.3 %; Lymphocytes % 30.2 %; MCHC 33.1 % (32.0-36.0); MCV 96 fL (80-95); Monocytes % 9.8 %; Neutrophils % 43.4 %; Platelet Count 202 10^3/uL (130-400); RBC 3.66 10^6/uL (3.93-5.22); RDW 14.4 % (11.7-14.6); RDW-SD 50.3 fL; WBC 6.81 10^3/uL (4.4-10.8)
[2025-03-30 10:28] LABS: ALT 22 U/L (14-59); AST 21 U/L (15-37); Albumin 3.7 g/dL (3.4-5.0); Alkaline Phosphatase 67 U/L (46-116); BUN 21 mg/dL (7-18); Bilirubin, Total 0.3 mg/dL (0.2-1.0); CREATININE 1.1 mg/dL (0.55-1.02); Calcium 9.3 mg/dL (8.5-10.1); Chloride 107 mmol/L (98-107); Estimated GFR 52.08 (mL/min/1.73m2); Glucose 90 mg/dL (74-106); Potassium 4.4 mmol/L (3.5-5.1); Sodium 144 mmol/L (136-145); Total Protein 6.2 g/dL (6.4-8.2)
== END 2025-03-30 03:33 | disposition home or self-care (01) ==
LOC: LBO 03:32
PROVIDERS: PCP Family Medicine; Visit Provider Student in an Organized Health Care Education/Training Program
DX: M05.79 Rheumatoid arthritis with rheumatoid factor of multiple sites without organ or systems involvement (principal); Z79.899 Other long term (current) drug therapy
CPT/HCPCS: 36415; 80053; 85025

== ENCOUNTER 2025-06-24 01:08 | Outpatient (CLI) | payer MEDICARE, SELFPAY ==
[2025-06-24 10:34] LABS: Abs Immature Grans 0.03 10^3/uL (0.0-0.06); HCT 31.5 % (36.0-46.0); HGB 10.3 g/dL (11.2-15.7); Immature Grans % 0.3 %; MCH 33.0 pg (27.0-33.0); MCHC 32.7 % (32.0-36.0); MCV 101 fL (80-95); MPV 9.8 fL (8.0-11.0); Platelet Count 161 10^3/uL (130-400); RBC 3.12 10^6/uL (3.93-5.22); RDW 13.4 % (11.7-14.6); RDW-SD 49.0 fL; WBC 9.17 10^3/uL (4.4-10.8)
[2025-06-24 11:20] LABS: ALT 26 U/L (14-59); AST 23 U/L (15-37); Albumin 3.6 g/dL (3.4-5.0); Alkaline Phosphatase 67 U/L (46-116); Anion Gap 8.7 mmol/L (3-11); BUN 34 mg/dL (7-18); Bilirubin, Total 0.6 mg/dL (0.2-1.0); CO2 26.3 mmol/L (21.0-32.0); Calcium 9.2 mg/dL (8.5-10.1); Chloride 105 mmol/L (98-107); Estimated GFR 18.55 (mL/min/1.73m2); Glucose 102 mg/dL (74-106); Potassium 5.4 mmol/L (3.5-5.1); Sodium 140 mmol/L (136-145); Total Protein 6.1 g/dL (6.4-8.2)
== END 2025-06-24 01:09 | disposition home or self-care (01) ==
LOC: LBO 01:08
PROVIDERS: PCP Family Medicine; Visit Provider Student in an Organized Health Care Education/Training Program
DX: M06.00 Rheumatoid arthritis without rheumatoid factor, unspecified site (principal)
CPT/HCPCS: 36415; 80053; 85025

== ENCOUNTER 2025-06-25 09:55 | Emergency (ER) | payer MEDICARE, SELFPAY ==
[2025-06-25 09:59] VITALS: BP 137/83; PULSE 74; RESP 16; TEMP 36.5; O2SAT 96
[2025-06-25 10:12] VITALS: BP 137/83; PULSE 74; RESP 16; TEMP 36.5; O2SAT 96
[2025-06-25 10:23] VITALS: BP 114/47; PULSE 78; PULSE 79; RESP 17; O2SAT 95
--- NOTE | 2025-06-25 10:25 | W.ED.GENAD ---
Discharge Plan Disposition Patient Disposition: Home Condition: Stable Discharge Details Clinical Impression: COPD exacerbation, KYA (acute kidney injury) Primary Care Provider: Mounika Mccray ED Provider: Sergio Rod Home Meds and New Rx's Prescriptions: New prednisone 20 mg tablet 60 mg PO DAILY 4 Days Qty: 12 0RF doxycycline hyclate 100 mg tablet 100 mg PO BID Qty: 14 0RF Continued fluoxetine 40 mg capsule 40 mg PO DAILY omeprazole 40 mg capsule,delayed release(DR/EC) 40 mg PO DAILY Rx Instructions: May take a second if needed fluticasone propion-salmeterol [Advair HFA] 230-21 mcg/actuation HFA aerosol inhaler 2 puff inhalation BID Qty: 12 8RF alendronate 70 mg tablet 70 mg PO QWEEK spironolactone 25 mg tablet 25 mg PO DAILY nystatin 100,000 unit/mL suspension 1 ml PO QID PRN Rx Instructions: swish and swallow nystatin 100,000 unit/gram powder 1 applic topical QID PRN furosemide 20 mg tablet 20 mg PO DAILY guaifenesin [Mucus Relief ER] 600 mg tablet extended release 12hr 600 mg PO BID PRN hydroxychloroquine 200 mg tablet 200 mg PO DAILY acetaminophen [Tylenol Extra Strength] 500 mg tablet 500 mg PO Q6H PRN prednisone 10 mg tablet 10 mg PO DAILY Qty: 34 0RF Rx Instructions: Take 40mg (4 tablets) one a day for 4 days, 30mg (3 tablets) once a day for 3 days, 20mg (2 tablets) once a day for 3 days , 10mg (1 tablet) for 2 days, 5mg (0.5 tablets) for 2 days albuterol sulfate [ProAir HFA] 8.5 GM HFA aerosol inhaler 1 - 2 puff Inhalation Q4H PRN Spiriva Respimat 2.5 mcg/actuation mist 2 puff inhalation DAILY Qty: 1 5RF atorvastatin 20 mg tablet 20 mg PO DAILY folic acid 1 mg tablet 1 mg PO DAILY Patient Comments: Folic Acid is to go in conjunction with Methotrexate that I take once a week. magnesium oxide 400 mg (241.3 mg magnesium) Tablet 400 mg PO DAILY Qty: 90 0RF aspirin [Aspir-81] 81 mg Tablet,Delayed Release (Dr/Ec) 81 mg PO DAILY oxybutynin chloride 5 mg Tablet 5 mg PO BID PRN Discharge Instructions Instructions: Low-potassium diet Additional Instructions: Your kidney function improved compared to yesterday. You should avoid taking any nonsteroidal anti-inflammatory drugs such as ibuprofen or Naprosyn. Make sure you are drinking plenty of fluids during the day to stay hydrated. Try to eat a low potassium diet. You should have your metabolic panel rechecked with your primary care provider within 1 to 2 weeks. If you feel significantly more ill or have new symptoms such as severe worsening shortness of breath or weakness return to the emergency department for reevaluation. HPI General Mode of arrival: ambulatory. Date/Time Provider Initiated Documentation: 06/25/25 09:57. Limitations to Documentation: no limitations. Information obtained by: patient. History of Present Illness 74 year old F presents to the emergency department with the chief complaint of Abnormal lab work, Patient started experiencing this day(s) (1) and it has been constant. No relieving factors improve symptom(s), No exacerbating factors reported . Patient notes cough and shortness of breath; denies chest pain and fever/chills. Patient did receive the following treatments prior to arrival, none Related Data Home Medications ?Medication ?Instructions ?Recorded ?Confirmed albuterol sulfate 90 mcg/actuation 1 - 2 puff inhalation Q4H PRN 09/20/13 01/18/25 aerosol inhaler (ProAir HFA) aspirin 81 mg tablet,delayed 81 mg PO DAILY 05/17/19 01/18/25 release (Aspir-) oxybutynin chloride 5 mg tablet 5 mg PO BID PRN 05/17/19 01/18/25 fluoxetine 40 mg capsule 40 mg PO DAILY 11/26/21 01/18/25 omeprazole 40 mg capsule,delayed 40 mg PO DAILY 11/26/21 01/18/25 release tiotropium bromide 2.5 2 puff inhalation DAILY #1 inh 12/14/21 01/18/25 mcg/actuation mist for inhalation (Spiriva Respimat) fluticasone propionate 230 2 puff inhalation BID #12 grams 09/30/23 01/18/25 mcg-salmeterol 21 mcg/actuation HFA inhaler (Advair HFA) atorvastatin 20 mg tablet 20 mg PO DAILY high cholesterol 05/18/24 01/18/25 folic acid 1 mg tablet 1 mg PO DAILY I take Methotrexate 05/18/24 01/18/25 magnesium oxide 400 mg (241.3 mg 400 mg PO DAILY #90 tabs 05/22/24 01/18/25 magnesium) tablet alendronate 70 mg tablet 70 mg PO QWEEK 06/07/24 01/18/25 nystatin 100,000 unit/gram topical 1 applic topical QID PRN 07/06/24 01/18/25 powder nystatin 100,000 unit/mL oral 1 ml PO QID PRN 07/06/24 01/18/25 suspension spironolactone 25 mg tablet 25 mg PO DAILY 07/06/24 01/18/25 furosemide 20 mg tablet 20 mg PO DAILY 07/21/24 01/18/25 acetaminophen 500 mg tablet 500 mg PO Q6H PRN 10/06/24 01/18/25 (Tylenol Extra Strength) hydroxychloroquine 200 mg tablet 200 mg PO DAILY 10/06/24 01/18/25 prednisone 10 mg tablet 10 mg PO DAILY #34 tabs 10/06/24 01/18/25 guaifenesin 600 mg tablet, 600 mg PO BID PRN 01/18/25 01/18/25 extended release 12 hr (Mucus Relief ER) doxycycline hyclate 100 mg tablet 100 mg PO BID #14 tabs 06/25/25 prednisone 20 mg tablet 60 mg (3 x 20 mg) PO DAILY 4 days 06/25/25 #12 tabs Previous Rx's ?Medication ?Instructions ?Recorded tiotropium bromide 2.5 2 puff inhalation DAILY #1 inh 12/14/21 mcg/actuation mist for inhalation (Spiriva Respimat) fluticasone propionate 230 2 puff inhalation BID #12 grams 09/30/23 mcg-salmeterol 21 mcg/actuation HFA inhaler (Advair HFA) magnesium oxide 400 mg (241.3 mg 400 mg PO DAILY #90 tabs 05/22/24 magnesium) tablet prednisone 10 mg tablet 10 mg PO DAILY #34 tabs 10/06/24 doxycycline hyclate 100 mg tablet 100 mg PO BID #14 tabs 06/25/25 prednisone 20 mg tablet 60 mg (3 x 20 mg) PO DAILY 4 days 06/25/25 #12 tabs Allergies Allergy/AdvReac Type Severity Reaction Status Date / Time No Known Allergies Allergy Verified 06/25/25 10:02 General Stated Complaint: GenMedical LAURA: 3 Review of Systems All systems reviewed & are unremarkable except as noted in HPI and below Constitutional Constitutional: Denies chills, Denies fever(s) and Denies weakness Cardiovascular Cardiovascular: Denies chest pain and Reports dyspnea Respiratory Respiratory: Reports cough and Reports dyspnea Gastrointestinal Gastrointestinal: Denies abdominal pain, Denies nausea and Denies vomiting Neurologic Neurologic: Denies weakness Exam Const General: no acute distress Orientation: alert HENMT Head: normal to inspection Ears: external ears normal General nose exam: external nose normal Mouth: moist mucous membranes Eyes General: appearance normal, both eyes and all related structures Neck Neck: normal visual inspection Resp Effort & Inspection: normal respiratory effort, able to speak in complete sentences and cough Auscultation: wheezes Cardio Rate: regular rate Skin General skin exam: no rashes or lesions noted Neuro General: patient alert and patient oriented x3 Extrem General: normal to inspection Psych Mental Status: mental status grossly normal Course Vital Signs Vital signs: Vital Signs Temperature 36.5 C 06/25/25 09:59 Pulse 74 06/25/25 09:59 Respiratory Rate 16 06/25/25 09:59 Blood Pressure 137/83 06/25/25 09:59 Pulse Oximetry 96 06/25/25 09:59 Temperature 36.5 C 06/25/25 10:12 Temperature Source Tympanic 06/25/25 09:59 Pulse 74 06/25/25 10:12 Respiratory Rate 16 06/25/25 10:12 Blood Pressure 137/83 06/25/25 10:12 Pulse Oximetry 96 06/25/25 10:12 Oxygen Delivery Method Room Air 06/25/25 10:12 Oxygen Flow Rate 0 06/25/25 09:59 Pain Level 0 06/25/25 10:12 Medical Decision Making 74-year-old female with history of COPD comes in after she had lab work done with her bagging salvager and it showed she had a low hemoglobin and elevated creatinine. Upon review it looks like her hemoglobin is around her baseline but her creatinine did increase from a normal range in March to 2.6 yesterday. She states she has a cough but is unsure if it is worse than her baseline and states she has some mild shortness of breath but she says she has that every day and is not sure that it is actually worse than normal. She denies any fevers, chills, vomiting, diaphoresis, chest pain. She states she is urinating normally. She denies any leg pain or calf tenderness. She is well-appearing on exam, she does have wheezing in all lung peterson on exam. No JVD or pedal edema. I will recheck a CBC and CMP and also UA. Will obtain a chest x-ray to evaluate for infiltrate and treat her symptoms with methylprednisolone and DuoNeb. Will also obtain a CTA to exclude obstructive causes for her change in her creatinine Patient feels better and lung sounds are improved. Creatinine has improved from yesterday to 2.2. Does have very mild elevation of serum potassium to 5.6. She says she does not drink much fluids during the day so feel her KYA is likely related to dehydration. I am going to have her avoid any nonsteroidal anti-inflammatory drugs. She is can increase her water intake and also have a low potassium diet. She will have her labs rechecked with her PCP, return precautions given. I am going to start her on doxycycline for her increased cough despite her x-ray being negative. Patient is nitrite positive, she denies any urinary symptoms, no fevers or back pain to suggest pyelonephritis. I am going to give her a one-time dose of fosfomycin. Differential Diagnosis Differential Diagnosis: Chronic kidney disease, KYA, pneumonia, COPD exacerbation Lab Data Lab results reviewed: Yes I reviewed the patient's lab results. PFSH All Active Problems (Updated 06/25/25 @ 12:16 by Sergio Rod MD) KYA (acute kidney injury) (Acute) COPD exacerbation (Acute) [place] grade 1 cystocele (Acute) Minimal symptoms. Patient does not desire surgical correction, or the use of a pessary at this point Aspiration into respiratory tract (Acute) Acute hypernatremia (Acute) Foreign body aspiration (Acute) Hemoptysis (Acute) Ground glass opacity present on imaging of lung (Acute) Fracture of distal end of left fibula (Acute 05/20/24) Pulmonary fibrosis (Acute) Syncope (Chronic) Hypotension due to drugs (Acute) PVC (premature ventricular contraction) (Chronic) CHF (congestive heart failure) (Acute) Thrush (Acute) Pneumonia (Acute) Asthma (Chronic) Respiratory failure with hypoxia (Acute) Personal history of nicotine dependence (Acute) COPD (chronic obstructive pulmonary disease) (Chronic) Pulmonary nodules (Acute) Frequent ventricular premature beats (Acute) Chronic cough (Acute) Urinary incontinence (Acute) LPRD (laryngopharyngeal reflux disease) (Chronic) Rheumatoid arthritis (Chronic 09/20/13) Colon cancer screening (Acute) Medical History Asthma-COPD overlap syndrome Obesity Depression Colitis Nephrolithiasis ETOH abuse Osteopenia Hyperplastic colonic polyp GERD (gastroesophageal reflux disease) Hypertension COPD (chronic obstructive pulmonary disease) Bilateral leg edema Prediabetes Multiple pulmonary nodules Lumbar back pain Osteoporosis Irregular heart beat Surgical History H/O tubal ligation Family History Other Osteoporosis Social History Smoking/Tobacco Use Status: Former Tobacco Use Quit Date: 07/18/07 Tobacco: How many years used: 40 Smoking risk assessment performed?: Yes Alcohol Intake: former Drug use: Never Substance use type: does not use Housing: house Current gender identity: female Additional Social history: [employer]
[2025-06-25 10:48] VITALS: RESP 20
[2025-06-25 10:56] LABS: Abs Immature Grans 0.02 10^3/uL (0.0-0.06); HCT 30.8 % (36.0-46.0); HGB 10.1 g/dL (11.2-15.7); Immature Grans % 0.4 %; MCH 32.8 pg (27.0-33.0); MCHC 32.8 % (32.0-36.0); MCV 100 fL (80-95); MPV 10.1 fL (8.0-11.0); Platelet Count 162 10^3/uL (130-400); RBC 3.08 10^6/uL (3.93-5.22); RDW 13.3 % (11.7-14.6); RDW-SD 48.1 fL; WBC 5.70 10^3/uL (4.4-10.8)
--- NOTE | 2025-06-25 11:03 | DI.RAD_ITS ---
Exam(s) XR CHEST 2V PA LATERAL EXAM: XR CHEST 2V PA LATERAL CLINICAL HISTORY: cough TECHNIQUE: 2D digital imaging was performed of the chest. Images were obtained. PA and lateral views were obtained. COMPARISON: CR XR CHEST 2V PA LATERAL from 10/06/2024 FINDINGS: MEDIASTINUM: Normal. HEART: Normal. PULMONARY VASCULATURE: Normal. LUNGS: There is diffuse interstitial prominence which is likely chronic and reflecting pulmonary fibrosis. No focal consolidating infiltrates are seen. PLEURAL SPACE: No pleural effusion or pneumothorax. BONE:Within normal limits for the patient's age. There is an old stable L1 compression fracture. OTHER FINDINGS:Normal. IMPRESSION: No acute pulmonary findings. DATA REPOSITORY: RADIATION DOSE DELIVERED:
[2025-06-25 11:05] LABS: ALT 31 U/L (14-59); AST 22 U/L (15-37); Albumin 3.6 g/dL (3.4-5.0); Alkaline Phosphatase 64 U/L (46-116); Anion Gap 7.0 mmol/L (3-11); BUN 32 mg/dL (7-18); Bilirubin, Total 0.7 mg/dL (0.2-1.0); CO2 29.0 mmol/L (21.0-32.0); Calcium 9.1 mg/dL (8.5-10.1); Chloride 105 mmol/L (98-107); Estimated GFR 22.67 (mL/min/1.73m2); Glucose 98 mg/dL (74-106); Magnesium 1.7 mg/dL (1.8-2.4); Potassium 5.6 mmol/L (3.5-5.1); Sodium 141 mmol/L (136-145); Total Protein 6.1 g/dL (6.4-8.2)
--- NOTE | 2025-06-25 11:07 | DI.CT_ITS ---
Exam(s) CT ABDOMEN PELVIS WO EXAM: CT ABDOMEN PELVIS WO CLINICAL HISTORY: elevated creatinine, ?urinary obstruction. TECHNIQUE: Imaging Protocol: Axial computed tomography images with coronal and sagittal reformatted images were created and reviewed. COMPARISON: CT CT ABDOMEN PELVIS W from 08/12/[address] CHEST WO from 08/18/[address] CHEST WO from 01/17/2025 FINDINGS: ABDOMEN: Lung Bases: There is a diffuse interstitial process in the lung bases. No focal consolidating infiltrates are present. Liver: Normal density. No measurable mass. Gallbladder and biliary tract: No radiodense calculus or biliary ductal dilation. Pancreas: There is fatty replacement of the pancreas. Spleen: Normal. Kidneys: Normal size, contour and axis.No radiodense stones or obstructive uropathy. There is a stable simple cyst in the left kidney. No follow-up is recommended. Adrenal glands: No mass is seen. Lymph nodes: Within normal limits. Abdominal Aorta: Abdominal portion non-dilated. Atherosclerotic calcification is present. PELVIS: Bladder:Symmetric distention, no gross wall thickening. Bowel: No obstruction or bowel wall thickening. There is no evidence of appendicitis. There is a small hiatal hernia. There is diverticulosis in the colon but no evidence of acute diverticulitis. There is stool throughout the colon consistent with constipation. Peritoneal cavity: No ascites, collection or mesenteric inflammatory response. No free air. Reproductive organs: Calcified uterine fibroid is present. Bones: Within normal limits. There is an old stable L1 compression fracture deformity. There is stable mild grade 1 anterolisthesis of L4 on L5 which is likely degenerative in nature. Soft Tissues: Within normal limits. IMPRESSION: 1. There is no evidence of nephrolithiasis or obstructive uropathy. 2. Constipation. 3. Mild diffuse interstitial process in the lung bases. Differential considerations include mild interstitial edema, pneumonitis or pulmonary fibrosis. 4. No focal consolidating infiltrates are seen in the lung bases. 5. Colonic diverticulosis without evidence of acute diverticulitis. RADIATION DOSE DELIVERED: 461.61mGy.cm Total DLP DATA REPOSITORY: All CT scans at this facility are submitted to the National Radiology Data Registry (NRDR) Dose Index Registry (DIR) with the [employer] (ACR). RADIATION OPTIMIZATION: All CT scans at this facility use at least one of these dose optimization techniques: automated exposure control; mA and/or kV adjustment per patient size (includes targeted exams where dose is matched to clinical indication); or iterative reconstruction.
[2025-06-25] MEDS: Albuterol/Ipratropium 3 ML UPD VIAL UPD (11:08)
[2025-06-25] MEDS: methylPREDNISolone SUCC 125 MG VIAL IVP (11:08)
[2025-06-25] MEDS: Normal Saline 1,000 ML 1000 ML IV (11:08)
[2025-06-25 12:12] LABS: Glucose Negative (Negative)
[2025-06-25 12:20] LABS: C & S Indicated? Yes; WBC >50 HPF (0-5)
[2025-06-25] MEDS: Fosfomycin Tromethamine 3 GM PACKET PO (12:46)
--- NOTE | 2025-06-28 11:17 | NUR.NOTE ---
Access chart to get the antibiotic dispensed on discharge for urine culture. Nursing Note:
--- NOTE | 2025-06-28 13:54 | W.ED.FU ---
Date of service: 06/28/25 Time of Service: 13:54 Follow Up Plan: Positive urine culture received from this patient's ED visit on 06/25/2025. Urine culture positive for greater than 100,000 colonies of Citrobacter freundii. On review of the chart I note that this patient was given a one-time dose of fosfomycin, and was sent home on doxycycline for reactive airway disease exacerbation. She does not require additional antibiosis at this time. Beatrice Hilario MD
== END 2025-06-25 12:55 | disposition home or self-care (01) ==
PROVIDERS: Emergency Provider Emergency Medicine; PCP Family Medicine
DX: N17.9 Acute kidney failure, unspecified (principal); J44.1 Chronic obstructive pulmonary disease with (acute) exacerbation
CPT/HCPCS: 36415; 80053; 87077; 94640; 96361; 96374; 99284; 71046; 74176; 81003; 81015; 83735; 85025; 87086; 87186; J2919; J3490; J7620

== ENCOUNTER 2025-07-04 16:35 | Outpatient (REF) | payer MEDICARE, SELFPAY ==
[2025-07-04 17:31] LABS: Anion Gap 7.7 mmol/L (3-11); BUN 33 mg/dL (7-18); CO2 30.3 mmol/L (21.0-32.0); Calcium 8.7 mg/dL (8.5-10.1); Chloride 106 mmol/L (98-107); Estimated GFR 22.67 (mL/min/1.73m2); Glucose 112 mg/dL (74-106); Potassium 4.6 mmol/L (3.5-5.1); Sodium 144 mmol/L (136-145)
== END 2025-07-04 16:36 | disposition home or self-care (01) ==
LOC: NCHCN 16:35
PROVIDERS: PCP Family Medicine; Visit Provider Family Medicine
DX: I10 Essential (primary) hypertension (principal)
CPT/HCPCS: 80048

== ENCOUNTER 2025-07-13 02:22 | Outpatient (CLI) | payer MEDICARE, SELFPAY ==
[2025-07-13 12:05] LABS: Anion Gap 8.0 mmol/L (3-11); BUN 23 mg/dL (7-18); CO2 28.0 mmol/L (21.0-32.0); Calcium 9.3 mg/dL (8.5-10.1); Chloride 105 mmol/L (98-107); Estimated GFR 23.97 (mL/min/1.73m2); Glucose 87 mg/dL (74-106); Potassium 4.8 mmol/L (3.5-5.1); Sodium 141 mmol/L (136-145)
== END 2025-07-13 02:23 | disposition home or self-care (01) ==
PROVIDERS: PCP Family Medicine; Visit Provider Internal Medicine Rheumatology
DX: N17.9 Acute kidney failure, unspecified (principal); Z79.899 Other long term (current) drug therapy
CPT/HCPCS: 36415; 80048

== ENCOUNTER → 2025-07-19 10:10 | Outpatient (BNVA) | payer MEDICARE, SELFPAY | PROVIDERS: PCP Family Medicine; Referring Provider Family Medicine; Visit Provider Physician Assistant Surgical | DX: J44.89 Other specified chronic obstructive pulmonary disease (principal); M05.7A Rheumatoid arthritis with rheumatoid factor of other specified site without organ or systems involvement; R91.8 Other nonspecific abnormal finding of lung field; J96.21 Acute and chronic respiratory failure with hypoxia; Z87.891 Personal history of nicotine dependence; Z71.89 Other specified counseling | CPT/HCPCS: 99214; 94664 ==

== ENCOUNTER 2025-07-22 05:13 | Outpatient (CLI) | payer MEDICARE, SELFPAY | END 2025-07-22 05:14 | disposition home or self-care (01) | LOC: RT 05:13 | PROVIDERS: PCP Family Medicine; Visit Provider Physician Assistant Surgical | DX: J96.21 Acute and chronic respiratory failure with hypoxia (principal); J44.9 Chronic obstructive pulmonary disease, unspecified | CPT/HCPCS: 94618; 94762 ==

== ENCOUNTER 2025-07-25 09:39 | Outpatient (CLI) | payer MEDICARE, SELFPAY ==
--- NOTE | 2025-07-25 | DI.RAD_ITS ---
Exam(s) RF MODIFIED SPEECH BA SWALLOW TECHNIQUE: Modified barium swallow was performed in conjunction with speech pathology. CONTRAST MATERIAL: Oral barium Oral water soluble contrast was administered. COMPARISON: No exams were available for comparison FINDINGS: Fluoroscopy was provided during modified barium swallow study performed in conjunction with the speech therapist. The radiologist was present in the fluoroscopy suite this entire procedure. Aspiration was noted on the 1st swallow performed with thin liquid. See separate speech therapist report for details. IMPRESSION: As above. RADIATION DOSE DELIVERED: april Oliver=7.73 mGy
--- NOTE | 2025-07-25 08:42 | ST.MBS_ITS ---
Date of Service Date of service: 07/25/25 Time of Service: 09:00 Modified Barium Swallow Study Findings: Video fluoroscopic Swallowing Evaluation (VFSE) / Modified Barium Swallow Study (MBSS) Speech Language Pathology Report Patient referred for VFSE/MBSS from Dr. Mounika Mccray given concern for aspiration. HPI & Patient report of function: Ml is a 74 year old female with hx asthma, COPD, RA on methotrexate, hypoxic respiratory failure (recommended 3LPM with exertion and at night, pt not wearing per last pulmonology note), hx eosinophils, former smoker 30pack years quit in 2006, hx GERD on omeprazole, and dx aspiration pna with hx hospitalization from suspected aspiration of Prozac pill. Ml reports longstanding history of coughing with liquids, solids, and pill s. She reports it happens most days, but some days are much better than others and she cannot identify triggers. She does feel liquids are what causes the most coughing. IMPRESSIONS: Ml presents with moderate sensorimotor pharyngeal and mild oral dysphagia, with evidence of silent aspiration of thin liquids x2 during the study. Primary impairments are sensory in nature, including delayed swallow initiation, delayed airway closure, and delayed cough reflex resulting in genia aspiration of thin liquids during the swallow. Cough reflex occurs but is notably delayed. Aspiration of thin liquids occurred in 2/4 trials of thin liquid in neutral head position, 0/2 trials of thin liquid with chin tuck position, and 0/2 trials of mildly thick liquids. Swallow strength appears WNL for age and there is no evidence of pharyngeal retention. However, missing dentition (upper dentures only) likely contributing to variable tolerance of solids. Etiology of sensory dysphagia is unclear based on medical history. Swallow safety is impaired; swallow efficiency is preserved. Patient appears to be at moderate risk for potential aspiration pneumonia, particularly in the setting of immune compromise (hx RA). Diet modification is indicated. Alternate nutrition is not indicated. Swallow prognosis is good-fair. Positive prognostic factors include motivation/cognitive status/insight. Negative prognostic factors include nature of dx (sensory dysphagia poorer prognosis for swallow rehab). RECOMMENDATIONS: Diet Texture Recommendation:? IDDSI LEVEL SOLIDS 6-Soft & Bite-Sized Solids Avoid mixed consistencies like dry cereal in milk or if eating, drain liquid off spoon first LIQUIDS 0-Thin Liquids Please see further details at?www.iddsi.org http://www.iddsi.org/ MEDICATIONS Whole in applesauce Diet texture modification is per patient's preference; please adjust diet textures at patient's discretion & collaboration with care team. Do not alter medications (e.g., cut)? without advice from your MD or pharmacist. Risk Management Strategies:? Behavioral reflux precautions, including upright position during + 90 mins after meals. Small bites, approx [id number] Very small sips, approx 5mL / teaspoon If eating mixed consistency (eg dry cereal with milk, soup) drain liquid off spoon first *Use a chin tuck technique with sips of liquid -Small single sip -Chin to chest -Swallow Multiple swallows per bolus to encourage clearance of pharyngeal stasis/residue Control risk factors for aspiration pneumonia via (a) thorough oral hygiene & (b) maintaining physical mobility as tolerated PLAN: Therapy: Recommend subsequent outpatient session with MANAGER OF MEDICAL to review results of today's exam and develop treatment plan as appropriate. May consider the following: Further Compensatory Strategy Training Goals: LTG: Patient will optimize swallow safety/efficiency and remain free from aspiration related illness. STG: Patient will verbalize comprehension of education provided re: dysphagia findings, compensatory strategies, aspiration precautions. Patient will return demonstration of chin tuck technique with thin liquids with elimination of aspiration symptoms in 80% opportunities. OBJECTIVE Videofluoroscopic Swallow Evaluation (VFSE/MBSS) was conducted in the lateral and [id number] projection by Speech-Language Pathologist, in collaboration with Radiologist, to evaluate oropharyngeal swallow function. Anatomic view under fluoroscopy: WFL PO Barium Contrast Trials Oral barium water-soluble contrast was administered as follows: IDDSI Level 0 Varibar thin liquid (40% w/v) IDDSI Level 2 Varibar nectar thick/mildly thick liquid (40% w/v) IDDSI Level 4 Varibar pudding/pureed/extremely thick (40% w/v) IDDSI Level 7 Regular Solid: 1/2 ims cracker coated in 3 mL Varibar pudding MBSImP Component Scores: COMPONENT Scale SCORE 1 Lip closure (0-4) 0 Resulted in no labial escape 2 Hold Position (0-3) 0 Maintained a cohesive bolus between tongue to palatal seal 3 Bolus Preparation (0-4) 1 Resulted in slow prolonged chewing/mashing with complete re-collection 4 Bolus Transport (0-4) 2 Was with slowed tongue motion 5 Oral Residue (0-4) 1 Was a trace, lining oral structures 6 Swallow Initiation (0-4) 3 Occurred when the bolus head was in the pyriform sinuses 7 Soft Palate Elevation (0-4) 0 Resulted in no bolus between soft palate and t he pharyngeal wall 8 Laryngeal Elevation (0-3) 0 Demonstrated complete superior movement of thyro id cartilage with complete approximation of arytenoids to epiglottic petiole 9 Anterior Hyoid Motion (0-2) 0 Demonstrated complete anterior movement 10 Epiglottic Movement (0-2) 0 Resulted in complete inversion 11 Laryngeal Closure (0-2) 1 Narrow column of contrast in laryngeal vestibule due to delayed laryngeal vestibule closure. Otherwise full closure occurs 12 Pharyngeal Stripping Wave (0-2) 1 Was present, but diminished 13 Pharyngeal Contraction (0-3) 0 Was complete 14 PES Opening (0-3) 0 Was completely distended and complete duration with no obstruction of flow 15 Tongue Base Retraction (0-4) 1 Allowed a trace column of contrast or air between tongue base and pharyngeal wall 16 Pharyngeal Residue (0-4) 2 Was a collection of residue within vallecular, cleared with liquid wash 17 Esophageal Clearance (0-4) 1 Resulted in esophageal retention in sternal region that did not fully clear with liquid was Results: COMPONENT Scale SCORE 1 Oral Score (0-18) 6 2 Pharyngeal Score (0-29) 4 3 Esophageal Score (0-4) 1 Penetration-Aspiration Scale: COMPONENT Scale SCORE 1 Thin liquid (1-8) 7 Contrast entered the airway, passed below the vocal fold s, and was not ejected from the trachea despite effort. 2 Agency thick (1-8) 1 Contrast did not enter the airway 3 Honey thick (1-8) NA 4 Pudding thick (1-8) 1 Contrast did not enter the airway 5 Cookie (1-8) 1 Contrast did not enter the airway Trialed Compensatory Strategies & Outcome: Maneuvers Successful (+) Unsuccessful (-) Postures Successful (+) Unsuccessful (-) 3 second Preparatory Set? + ? Chin Tuck Posture? ? + Cough? ? Posterior Head tilt? Reflexive? Cued? Throat Clear? ? Head Tilt to? Reflexive? Left? Cued? Right? ? Saliva swallow? ? Head Turn/Rotate to? ? Supraglottic Swallow? Left? ? Super-supraglottic Swallow? Right? ? Bolus Modifications Successful (+) Unsuccessful (-) Delivery/Alternating Consistencies ? Follow with Liquid Wash + ? Follow with Solid Bolus? Delivery/Via Straw? ? Reduced Volume? + ? Reduced Rate of Intake? ? Increased Viscosity? ? + Other:?? ? Thank you for allowing us to take part in this patient's care. Please feel free to contact the [facility] Speech Language Pathology Department with any questions/concerns.
[2025-07-25] MEDS: Barium Sulfate Oral Paste 40% W/V 230 ML TUBE PO (09:34)
[2025-07-25] MEDS: Barium Sulfate 81% w/w for Oral Suspension 148 GM BTL PO (09:36)
[2025-07-25] MEDS: Barium Sulfate 40% W/V 240 ML BTL PO (09:37)
== END 2025-07-25 09:59 ==
PROVIDERS: PCP Family Medicine; Visit Provider Family Medicine
DX: R13.13 Dysphagia, pharyngeal phase (principal)
CPT/HCPCS: 92526; 74221

== ENCOUNTER 2025-07-29 15:09 | Outpatient (REF) | payer MEDICARE, SELFPAY ==
[2025-07-29 15:44] LABS: Anion Gap 8.1 mmol/L (3-11); BUN 19 mg/dL (7-18); CO2 27.9 mmol/L (21.0-32.0); Calcium 9.2 mg/dL (8.5-10.1); Chloride 106 mmol/L (98-107); Estimated GFR 35.89 (mL/min/1.73m2); Glucose 86 mg/dL (74-106); Potassium 5.0 mmol/L (3.5-5.1); Sodium 142 mmol/L (136-145)
== END 2025-07-29 15:10 | disposition home or self-care (01) ==
LOC: NCHCN 15:09
PROVIDERS: PCP Family Medicine; Visit Provider Family Medicine
DX: M05.9 Rheumatoid arthritis with rheumatoid factor, unspecified (principal)
CPT/HCPCS: 80048

== ENCOUNTER 2025-09-05 03:55 | Outpatient (CLI) | payer MEDICARE, SELFPAY ==
[2025-09-05 10:31] LABS: Anion Gap 7.2 mmol/L (3-11); BUN 27 mg/dL (7-18); CO2 28.8 mmol/L (21.0-32.0); Calcium 8.6 mg/dL (8.5-10.1); Chloride 105 mmol/L (98-107); Estimated GFR 27.03 (mL/min/1.73m2); Glucose 77 mg/dL (74-106); Potassium 4.5 mmol/L (3.5-5.1); Sodium 141 mmol/L (136-145)
== END 2025-09-05 03:56 | disposition home or self-care (01) ==
LOC: LBO 03:55
PROVIDERS: PCP Family Medicine; Visit Provider Family Medicine
DX: N18.32 Chronic kidney disease, stage 3b (principal); N17.9 Acute kidney failure, unspecified
CPT/HCPCS: 36415; 80048; 80053; 81003; 82565; 84156; 85025

== ENCOUNTER 2025-09-07 01:22 | Outpatient (CLI) | payer MEDICARE, SELFPAY ==
--- NOTE | 2025-09-07 10:10 | DI.CT_ITS ---
Exam(s) CT CHEST HIGH RESOLUTION EXAM: CT CHEST HIGH RESOLUTION CLINICAL HISTORY: RHEUMATOID ARTHRITIS INVOLVING MULTIPLE SITES, INTERSTITIAL LUNG DISEASE. TECHNIQUE: Imaging protocol: Axial computed tomography images were obtained and coronal and sagittal reformatted images were created and reviewed. Lung Computer Aided Detection (CAD) was utilized. COMPARISON: CT CT CHEST WO from 06/29/[address] CHEST WO from 01/17/2025 FINDINGS: Tracheobronchial tree: Patent where visualized. No bronchiectasis is present. Pulmonary parenchyma: There is a stable 8 mm nodule in the right upper lobe (series 2, image 32). There is a stable 4 mm nodule in the right lung apex (series 2, image 17). There are no new suspicious pulmonary nodules. Emphysematous changes are present in the lungs. Pulmonary fibrotic changes are again seen in the lungs. The lower lobe infiltrates have resolved. Stable chronic findings in the lungs. Mediastinum and Astrid: No dominant adenopathy or fluid collection. The esophagus is unremarkable. Thyroid gland: There is a subcentimeter nodule in the right lobe of the thyroid gland. No follow-up is recommended. Pleura: No effusion or pneumothorax. Heart: The heart is mildly enlarged. Coronary artery calcification is present. No pericardial effusion. Aorta: Thoracic aorta non-dilated. Atherosclerotic calcification is present. Upper abdomen: Cholelithiasis. There is a stable cyst in the left kidney. No follow-up is recommended. There is fatty infiltration of the pancreas. Lymph nodes: Within normal limits. Soft tissues: Unremarkable. Bones:Within normal limits for the patient's age. There is a stable L1 compression fracture. IMPRESSION: 1. Stable interstitial disease in the lungs. 2. Resolution of the lower lobe infiltrates. 3. Stable pulmonary nodules. RADIATION DOSE DELIVERED: 302.71mGy.cm Total DLP 302.71mGy.cm Total DLP DATA REPOSITORY: All CT scans at this facility are submitted to the National Radiology Data Registry (NRDR) Dose Index Registry (DIR) with the [employer] ([employer]). RADIATION OPTIMIZATION: All CT scans at this facility use at least one of these dose optimization techniques: automated exposure control; mA and/or kV adjustment per patient size (includes targeted exams where dose is matched to clinical indication); or iterative reconstruction.
== END 2025-09-07 01:42 ==
LOC: DI 01:22
PROVIDERS: PCP Family Medicine; Visit Provider Student in an Organized Health Care Education/Training Program
DX: J84.9 Interstitial pulmonary disease, unspecified (principal); M05.79 Rheumatoid arthritis with rheumatoid factor of multiple sites without organ or systems involvement
CPT/HCPCS: 71250

== ENCOUNTER 2025-10-07 11:58 | Outpatient (REF) | payer MEDICARE, SELFPAY ==
[2025-10-07 21:40] LABS: Abs Immature Grans 0.02 10^3/uL (0.0-0.06); HCT 35.7 % (36.0-46.0); HGB 11.3 g/dL (11.2-15.7); Immature Grans % 0.3 %; MCH 30.3 pg (27.0-33.0); MCHC 31.7 % (32.0-36.0); MCV 96 fL (80-95); MPV 11.0 fL (8.0-11.0); Platelet Count 170 10^3/uL (130-400); RBC 3.73 10^6/uL (3.93-5.22); RDW 12.1 % (11.7-14.6); RDW-SD 42.3 fL; WBC 6.21 10^3/uL (4.4-10.8)
[2025-10-07 22:05] LABS: ALT 28 U/L (10-49); AST 31 U/L (<34); Albumin 3.8 g/dL (3.4-5.0); Alkaline Phosphatase 54 U/L (46-116); Anion Gap 7.5 mmol/L (3-11); BUN 18 mg/dL (9-23); Bilirubin, Total 0.60 mg/dL (0.2-1.2); CO2 30.5 mmol/L (20.0-31.0); Calcium 9.1 mg/dL (8.3-10.6); Chloride 107 mmol/L (98-107); Glucose 92 mg/dL (74-106); Potassium 4.4 mmol/L (3.5-5.1); Sodium 145 mmol/L (136-145); Total Protein 5.9 g/dL (5.7-8.2)
== END 2025-10-07 11:59 | disposition home or self-care (01) ==
LOC: NCHCN 11:58
PROVIDERS: PCP Family Medicine; Visit Provider Family Medicine
DX: M06.9 Rheumatoid arthritis, unspecified (principal)
CPT/HCPCS: 80053; 85025

== ENCOUNTER 2025-10-26 11:50 | Outpatient (REF) | payer MEDICARE, SELFPAY ==
[2025-10-26 16:26] LABS: Anion Gap 7.3 mmol/L (3-11); BUN 18 mg/dL (9-23); CO2 29.7 mmol/L (20.0-31.0); Calcium 9.0 mg/dL (8.3-10.6); Chloride 106 mmol/L (98-107); Glucose 87 mg/dL (74-106); Potassium 4.7 mmol/L (3.5-5.1); Sodium 143 mmol/L (136-145)
== END 2025-10-26 11:51 | disposition home or self-care (01) ==
LOC: NCHCN 11:50
PROVIDERS: PCP Family Medicine; Visit Provider Family Medicine
DX: I10 Essential (primary) hypertension (principal)
CPT/HCPCS: 80048